=== PATIENT | male | born 1945 | race African-American/Black ===

== ENCOUNTER 2017-12-21 11:30 | Inpatient (IN) | payer MEDICARE, OTHER ==
[~2017-12-21] VITALS: Ht 172.7 cm; Wt 53.7 kg
[2017-12-21] VITALS (8 sets, daily range): BP systolic 158–194; BP diastolic 91–108; PULSE 64–82; RESP 15–18; TEMP 97.3–98; O2SAT 97–100
[2017-12-21] MEDS ORDERED: LACTULOSE SYRUP 20 GM/30 ML CUP PO PRN (12:00)
[2017-12-21] MEDS ORDERED: SENNOSIDES 8.6 MG TAB PO PRN (12:00)
[2017-12-21] MEDS ORDERED: CHLORHEXIDINE GLUCONATE 2 % 1 PACK (2 CLOTHS) TOP PRN (12:00)
[2017-12-21] MEDS ORDERED: BISACODYL 10 MG SUPP RECTAL PRN (12:00)
[2017-12-21] MEDS ORDERED: SODIUM CHLORIDE 0.9% 20 ML VIAL IV ONE (12:00)
[2017-12-21] MEDS ORDERED: ROCURONIUM INJ 50 MG/5 ML SYRINGE IV PUSH ONE (12:00)
[2017-12-21] MEDS ORDERED: hydrALAZINE HCL 20 MG/ML VIAL IV ONE (12:00)
[2017-12-21] MEDS ORDERED: ESMOLOL HCL 100 MG/10 ML VIAL IV ONE (12:00)
[2017-12-21] MEDS ORDERED: PHENYLEPH/NS 1000 MCG/10 ML SYR IV ONE (12:00)
[2017-12-21] MEDS ORDERED: ePHEDrine/NS 25 MG/5 ML SYRINGE IV ONE (12:00)
[2017-12-21] MEDS ORDERED: MISCELLANEOUS NURSING INFORMATION XX SCH (12:00)
[2017-12-21] MEDS ORDERED: ONDANSETRON HCL 4 MG/2 ML VIAL IV PUSH PRN (12:00)
[2017-12-21] MEDS ORDERED: METOPROLOL TARTRATE 5 MG/5 ML VIAL IV ONE (12:00)
[2017-12-21] MEDS ORDERED: DEXAMETHASONE SOD PHOS 4 MG/ML VIAL IV ONE (12:00)
[2017-12-21] MEDS ORDERED: MAGNESIUM HYDROXIDE SUSP 30 ML CUP PO PRN (12:00)
[2017-12-21] MEDS ORDERED: RESP: ALBUTEROL 2.5 MG/IPRATROPIUM 0.5 MG NEB (PRN) INH (12:00)
[2017-12-21] MEDS ORDERED: ONDANSETRON HCL 4 MG/2 ML VIAL IV ONE (12:00)
[2017-12-21] MEDS ORDERED: LIDOCAINE HCL 1% PF 5 ML SYRINGE OTHER ONE (12:00)
[2017-12-21] MEDS ORDERED: PROPOFOL 200 MG/20 ML AMP IV ONE (12:00)
--- NOTE | 2017-12-21 12:09 | PD ---
HPI Chief Complaint: transfer from [place]/intracranial hemorrhage Time Seen by Provider: 11:53 Travel History International Travel<30 days: No Contact w/Intl Traveler<30days: No History of Present Illness HPI 71-year-old male presents to the emergency department sent from [facility] for intracranial hemorrhage. Patient was accepted by basket patcher, Dr. Coronado. I spoke to Dr. Prajapati he was already spoke to the neurologist. The patient does not contribute to history and physical and is confused. According to notes from previous hospital, the patient has history of alcohol abuse. No exacerbating or relieving factors. Severity: critical. [facility] Social History Alcohol Use: Yes Tobacco Use: No (unknown) Substance Use: No (unknown) Review of Systems Except as stated in HPI: all other systems reviewed are Neg Physical Exam Narrative GENERAL: Well-nourished, well-developed male patient, afebrile. SKIN: Focused skin assessment warm/dry. HEAD: Normocephalic. Atraumatic EYES: No scleral icterus. No injection or drainage. NECK: Supple, trachea midline. No JVD or lymphadenopathy. CARDIOVASCULAR: Regular rate and rhythm without murmurs, gallops, or rubs. RESPIRATORY: Breath sounds equal bilaterally. No accessory muscle use. Lung sounds diminished GASTROINTESTINAL: Abdomen soft, non-tender, nondistended. MUSCULOSKELETAL: No cyanosis, or edema. BACK: Nontender without obvious deformity. No CVA tenderness. NEUROLOGICAL: Awake and alert. Patient neglects right side of body. He is confused and does not answer any questions. He will squeeze my left hand, but does not follow any other commands. Data Data Last Documented VS Vital Signs Date Time Temp Pulse Resp B/P (MAP) Pulse Ox O2 Delivery O2 Flow Rate FiO2 12/21/17 11:59 97.3 69 16 158/91 (113) 97 Room Air Orders Orders Admit Order (Ed Use Only) (12/21/17 12:06) MDM Medical Decision Making Medical Screen Exam Complete: Yes Emergency Medical Condition: Yes Medical Record Reviewed: Yes Differential Diagnosis Intracranial hemorrhage versus CVA versus TIA Narrative Course 8-year-old male was sent from [facility] for intracranial hemorrhage. The patient was accepted by Dr. Jasso who is at his bedside. Dr. Mae is already consulted and is seeing the patient emergency department. Patient was admitted to ICU to Dr. Jasso. Diagnosis Primary Impression: Intracranial hemorrhage Admitting Information Admitting Physician Requests: Admit Carol Toussaint Dec 21, 2017 12:09
--- NOTE | 2017-12-21 12:14 | PD.CONS ---
(Lewis Mae MD) HPI Consult Requested By Primary Care Physician Unknown History of Present Illness This is a 71-year-old brought to the [facility] emergency department with altered mental status and confusion. He has a chronic expressive aphasia and right sided deficit from a previous cerebrovascular accident. His care is complicated by long-term alcohol abuse. CT scan of the head showed a large bilateral subdural fluid collections which are typical of chronic hematoma. There is considerable compression of the brain. Neurosurgery consultation was requested (Lewis Mae MD) Service NRS Consult Requested By Dr. Prajapati Reason for Consult subdural hematoma History of Present Illness Mr. East is a 71 year old male who presented to [place] as a transfer from [facility] for evaluation of subdural hematoma. History cannot be obtained from the patient and no family at bedside thus history obtained from the patient's chart. Mr. Oquendo has a history of chronic aphasia and right side weakness from a prior stroke. He also has a history of chronic etoh abuse. He presented to [facility] ED with confusion and AMS. A CT Brain had shown large bilateral subdural fluid collections with mass effect of the brain. A neurosurgical evaluation was requested for surgical decompression. 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 daily, lactulose 30 cc p.o. twice daily, Keppra 500 mg twice daily, rifaximin 550 mg p.o. twice daily, thiamine 100 mg p.o. daily, aspirin 81 mg p.o. daily, atorvastatin 40 mg p.o. at bedtime, Lopressor 12.5 mg p.o. twice daily Protonix 40 mg p.o. daily Active Ordered Medications Current Medications Medications (Trade) Dose Ordered Sig/Ole Route PRN Reason Start Time Stop Time Status Last Admin Dose Admin Sodium Chloride 1,000 ml @ 100 mls/hr Q10H IV 12/21/17 11:54 12/21/17 12:40 Famotidine (Pepcid Inj) 20 mg Q12HR IV PUSH 12/21/17 12:00 12/21/17 12:40 Ondansetron HCl (Zofran Inj) 4 mg Q6H PRN IV PUSH NAUSEA OR VOMITING 12/21/17 12:00 Albuterol/ Ipratropium (Duoneb Neb) 1 ampule Q4HR NEB PRN INH WHEEZING 12/21/17 12:00 Miscellaneous Information 1 Q361D XX 12/21/17 12:00 Chlorhexidine Gluconate (Chlorhexidine 2% Cloth) 3 pack Taper DAILY@04 TOP 12/22/17 04:00 12/18/18 03:59 Chlorhexidine Gluconate (Chlorhexidine 2% Cloth) 3 pack UNSCH PRN TOP HYGIENIC CARE 12/21/17 12:00 Senna/Docusate Sodium (Rossana-Colace) 1 tab BID PO 12/21/17 21:00 Magnesium Hydroxide (Milk Of Magnesia Liq) 30 ml Q12H PRN PO Mild constipation 12/21/17 12:00 Sennosides (Senokot) 17.2 mg Q12H PRN PO Moderate constipation 12/21/17 12:00 Bisacodyl (Dulcolax Supp) 10 mg DAILY PRN RECTAL SEVERE CONSITIPATION 12/21/17 12:00 Lactulose (Lactulose Liq) 30 ml DAILY PRN PO SEVERE CONSITIPATION 12/21/17 12:00 Lactulose (Lactulose Liq) 30 ml DAILY PO 12/22/17 09:00 UNV Levetriacetam 500 mg/Sodium Chloride 105 ml @ 420 mls/hr Q12HR IV 12/21/17 21:00 UNV Rifaximin (Xifaxan) 550 mg BID PO 12/21/17 21:00 UNV Atorvastatin Calcium (Lipitor) 40 mg HS PO 12/21/17 21:00 UNV Metoprolol Tartrate (Lopressor) 25 mg Q12HR PO 12/21/17 21:00 UNV Family History cannot be obtained Social History history of chronic etoh abuse (Amparo Longoria) Physical Exam Vital Signs Vital Signs Date Time Temp Pulse Resp B/P (MAP) Pulse Ox O2 Delivery O2 Flow Rate FiO2 12/21/17 11:59 97.3 69 16 158/91 (113) 97 Room Air Physical Exam General: Intubated and sedated. GCS 6. HEENT: Traumatic with swelling and contusion. Normocephalic. Nonicteric sclera. No nasal or otic drainage. Neuro: Awake, Aphasic, he only followed maybe 1-2 simple command. Cranial nerve examination: pupils equal, round, and reactive to light. Gross extra- ocular movements are intact when tracking. Facial motor appears symmetrical. Exam limited due to clinical condition. Neck is soft and supple. Cervical spine has a full range of motion in anterior flexion, extension, lateral bending, and rotation without pain. There is no tenderness to palpation to the spinous processes or paraspinal muscles. Musculoskeletal: Exam limited due to clinical condition. Moves left arm 4/5 to command, right arm 1-2/5, withdraws lower extremities to pain, right greater than left. Sensory examination: responds to pain to extremities, left greater than right. Deep tendon reflexes are 1+ in the biceps, triceps, and brachioradialis, bilaterally, in the upper extremities. In the lower extremities, the patellar and Achilles are 1+, bilaterally. There is a bilateral plantar flexion response. Hoffmanns sign is negative. There is no clonus. Cerebellar examination is limited due to clinical condition but no obvious deficits noted. Heart: regular rate, rhythm Resp: clear, no wheezes, nonlabored breathing Skin: warm, dry, no cyanosis or erythema (Lewis Mae MD) Physical Exam General: In bed, in no acute distress. HEENT: Normocephalic. Nonicteric sclera. No nasal or otic drainage. Neuro: Awake, Aphasic, he only followed maybe 1-2 simple command. Cranial nerve examination: pupils equal, round, and reactive to light. Gross extra- ocular movements are intact when tracking. Facial motor appears symmetrical. Exam limited due to clinical condition. Neck is soft and supple. Cervical spine has a full range of motion in anterior flexion, extension, lateral bending, and rotation without pain. There is no tenderness to palpation to the spinous processes or paraspinal muscles. Musculoskeletal: Exam limited due to clinical condition. Moves left arm 4/5 to command, right arm 1-2/5, withdraws lower extremities to pain, right greater than left. Sensory examination: responds to pain to extremities, left greater than right. Deep tendon reflexes are 1+ in the biceps, triceps, and brachioradialis, bilaterally, in the upper extremities. In the lower extremities, the patellar and Achilles are 1+, bilaterally. There is a bilateral plantar flexion response. Hoffmanns sign is negative. There is no clonus. Cerebellar examination is limited due to clinical condition but no obvious deficits noted. Heart: regular rate, rhythm Resp: clear, no wheezes, nonlabored breathing Skin: warm, dry, no cyanosis or erythema (Amparo Longoria) Attending Statement The [patient is critically ill with a life-threatening and deteriorating neurologic condition. He requires emergency decompression of both hemispheres and he is neurologically unstable 1. Acute on chronic subdural fluid collections, bilateral 2. Residual expressive aphasia and right-sided weakness from previous CVA. 3. Chronic alcoholism. 4. COPD, not exacerbated. 5. Previous CVA. 6. Seizures, chronic 7. Hypertension I reviewed his radiological studies from [place] and from here Last [address] 12/21/17 0000 Signed Impressions: Service Date/Time: Thursday, December 21, 2017 12:48 - CONCLUSION: 1. Bilateral subdural hematomas, left greater than right containing chronic and acute blood products. 2. Mild mass effect and midline shift to the right by 4 mm. Jose Gonzalez MD Given his neuroliogical deterioration i recommend urgent bilateral decompressive bur hole surgery. Neuro checks in a serial fashion. A follow-up CT of the head will be obtained in 24 hours. Pulmonary.. aggressive pulmonary toilette, nasotracheal suction, and breathing treatments with nebulizers. Nutrition. NPO Renal. monitor closely urine output, BUN and creatinine Endocrine. Monitor serial Acu checks and SSI as needed in detail ID monitor for signs of infection Protonix for stress ulcer prophylaxis Santy hose and SCD's for DVT prophylaxis Caprini VTE Risk Assessment: Mod/High Risk (score >= 2) VTE Pharm Contraindication: High risk for bleeding Caprini Risk Assessment Model Point Value = 1 Point Value = 2 Point Value = 3 Point Value = 5 Age 41-60 Minor surgery BMI > 25 kg/m2 Swollen legs Varicose veins or History of unexplained or recurrent spontaneous Oral contraceptives or hormone replacement Sepsis (< 1 month) Serious lung disease, including pneumonia (< 1 month) Abnormal pulmonary function Acute myocardial infarction Congestive heart failure (< 1 month) History of inflammatory bowel disease Medical patient at bed rest Age 61-74 Arthroscopic surgery Major open surgery (> 45 min) Laparoscopic surgery (> 45 min) Malignancy Confined to bed (> 72 hours) Immobilizing plaster cast Central venous access Age >= 75 History of VTE Family history of VTE Factor V Leiden Prothrombin [id number] Lupus anticoagulant Anticardiolipin antibodies Elevated serum homocysteine Heparin-induced thrombocytopenia Other congenital or acquired thrombophilia Stroke (< 1 month) Elective arthroplasty Hip, pelvis, or leg fracture Acute spinal cord injury (< 1 month) Prophylaxis Regimen Total Risk Factor Score Risk Level Prophylaxis Regimen 0-1 Low Early ambulation 2 Moderate Order ONE of the following: *Sequential Compression Device (SCD) *Heparin 5000 units SQ BID 3-4 Higher Order ONE of the following medications: *Heparin 5000 units SQ TID *Enoxaparin/Lovenox 40 mg SQ daily (WT < 150 kg, CrCl > 30 mL/min) *Enoxaparin/Lovenox 30 mg SQ daily (WT < 150 kg, CrCl > 10-29 mL/min) *Enoxaparin/Lovenox 30 mg SQ BID (WT < 150 kg, CrCl > 30 mL/min) AND/OR *Sequential Compression Device (SCD) 5 or more Highest Order ONE of the following medications: *Heparin 5000 units SQ TID (Preferred with Epidurals) *Enoxaparin/Lovenox 40 mg SQ daily (WT < 150 kg, CrCl > 30 mL/min) *Enoxaparin/Lovenox 30 mg SQ daily (WT < 150 kg, CrCl > 10-29 mL/min) *Enoxaparin/Lovenox 30 mg SQ BID (WT < 150 kg, CrCl > 30 mL/min) AND *Sequential Compression Device (SCD) Discussed with critical care academic registrar (Lewis Mae MD) Lewis Mae MD Dec 21, 2017 12:13 Amparo Longoria Dec 21, 2017 12:49
--- NOTE | 2017-12-21 12:26 | HHI.HP ---
HPI Service Critical Care Medicine Primary Care Physician Unknown Admission Diagnosis intracranial hemorrhage Diagnosis: Chief Complaint: Confusion. Travel History International Travel<30 Days: No Contact w/Intl Traveler <30 Da: No Traveled to Known Affected Are: No History of Present Illness This 71-year-old gentleman presents to the [facility] emergency department with altered mental status and confusion. He has a chronic expressive aphasia and right sided deficit from a previous cerebrovascular accident. His care is complicated by long-term alcohol abuse. CAT scan of the head obtained reveals large bilateral subdural fluid collections which are typical of chronic hematoma. There is considerable compression of the brain and the gentleman is quite confused. I have shown the outside hospital head CT scans to the neurosurgeon on-call during the patient's transportation to our facility and upon his examination the patient requires emergency decompression of both hemispheres. Ammonia 32. INR 1.1 Past Family Social History Allergies: Coded Allergies: No Known Allergies (Unverified , 12/21/17) Past Medical History 1. Asthma 2. COPD 3. Previous CVA 4. Hypertension 5. Liver disease 6. Seizures Medications: Folic acid 1 mg p.o. daily, lactulose 30 cc p.o. twice daily, Keppra 500 mg twice daily, rifaximin 550 mg p.o. twice daily, thiamine 100 mg p.o. daily, aspirin 81 mg p.o. daily, atorvastatin 40 mg p.o. at bedtime, Lopressor 12.5 mg p.o. twice daily Protonix 40 mg p.o. daily Physical Exam Physical Exam Physical exam: Pulse 82 and regular, blood pressure 165/105, respiratory rate is 18 and nonlabored, temperature is 98.2 Head: Atraumatic, normal Neck: Supple, airway widely patent. Lungs: Clear bilaterally without wheezes or crackles, comfortable respiratory pattern heart: Normal S1-S2, regular rate and rhythm, no murmur or rub, no jugular venous distention Abdomen: Soft, no guarding, no tenderness bowel sounds are active Extremities: Warm, well-perfused, skin dry and scaly Neurologic exam: He is disoriented and confused. Somewhat difficult to evaluate completely because of his residual expressive aphasia from a prior stroke. Right upper and lower extremity power function are 2/5 left leg and arm power function are 5/5 patient tracks with his eyes, attempts to answer questions, calm appearing, bilateral cataracts. Laboratory Pertinent laboratory includes; hemoglobin 11.5, white blood cell count 6400, platelet count 97,000 Coagulation profile: INR 1.1APTT 24.3 Electrolytes: Sodium 139, potassium 3.2, creatinine is 1.15, BUN 6.0 Liver function tests: Total bilirubin 1.5, AST 51, ALT 16, alkaline phosphatase 87 Nutrition: Total protein 8.1, albumin is 4.4 Toxicology: Alcohol level 0.[address] head: Bilateral subdural fluid collections, large. Caprini VTE Risk Assessment Caprini VTE Risk Assessment: Mod/High Risk (score >= 2) VTE Pharm Contraindication: High risk for bleeding Caprini Risk Assessment Model Point Value = 1 Point Value = 2 Point Value = 3 Point Value = 5 Age 41-60 Minor surgery BMI > 25 kg/m2 Swollen legs Varicose veins or History of unexplained or recurrent spontaneous Oral contraceptives or hormone replacement Sepsis (< 1 month) Serious lung disease, including pneumonia (< 1 month) Abnormal pulmonary function Acute myocardial infarction Congestive heart failure (< 1 month) History of inflammatory bowel disease Medical patient at bed rest Age 61-74 Arthroscopic surgery Major open surgery (> 45 min) Laparoscopic surgery (> 45 min) Malignancy Confined to bed (> 72 hours) Immobilizing plaster cast Central venous access Age >= 75 History of VTE Family history of VTE Factor V Leiden Prothrombin [id number] Lupus anticoagulant Anticardiolipin antibodies Elevated serum homocysteine Heparin-induced thrombocytopenia Other congenital or acquired thrombophilia Stroke (< 1 month) Elective arthroplasty Hip, pelvis, or leg fracture Acute spinal cord injury (< 1 month) Prophylaxis Regimen Total Risk Factor Score Risk Level Prophylaxis Regimen 0-1 Low Early ambulation 2 Moderate Order ONE of the following: *Sequential Compression Device (SCD) *Heparin 5000 units SQ BID 3-4 Higher Order ONE of the following medications: *Heparin 5000 units SQ TID *Enoxaparin/Lovenox 40 mg SQ daily (WT < 150 kg, CrCl > 30 mL/min) *Enoxaparin/Lovenox 30 mg SQ daily (WT < 150 kg, CrCl > 10-29 mL/min) *Enoxaparin/Lovenox 30 mg SQ BID (WT < 150 kg, CrCl > 30 mL/min) AND/OR *Sequential Compression Device (SCD) 5 or more Highest Order ONE of the following medications: *Heparin 5000 units SQ TID (Preferred with Epidurals) *Enoxaparin/Lovenox 40 mg SQ daily (WT < 150 kg, CrCl > 30 mL/min) *Enoxaparin/Lovenox 30 mg SQ daily (WT < 150 kg, CrCl > 10-29 mL/min) *Enoxaparin/Lovenox 30 mg SQ BID (WT < 150 kg, CrCl > 30 mL/min) AND *Sequential Compression Device (SCD) Assessment and Plan Assessment and Plan Assessment: 1. Acute on chronic subdural fluid collections, bilateral 2. Residual expressive aphasia and right-sided weakness from previous CVA. 3. Chronic alcoholism. 4. COPD, not exacerbated. 5. Previous CVA. 6. Seizures, chronic 7. Hypertension Plan: Neuro: Immediate bilateral decompressive bur hole surgery. N.p.o. status Head of bed elevated 45. Cardiovascular: Continue outpatient beta-jana therapy Hold EMY inhibitor today Maintenance IV fluid hydration with isotonic crystalloid Respiratory: Bronchodilators every 6 hours as needed wheezing Incentive spirometry GI: n.p.o. : Postoperative Bean insertion for strict MICHAEL. Endocrine: Sliding scale insulin for euglycemia Hematology: CBC for fever Postoperative hemoglobin determination ID: Culture for fevers No obvious infection at this time Prophylaxis: Pepcid for GI ulcer protection SCD4 DVT prophylaxis Overall impression: This gentleman has accumulated life-threatening bilateral subdural fluid collections. This likely started as subdural hemorrhage and has progressed to the chronic status. The gentleman is critically ill with a life- threatening and deteriorating neurologic condition. He requires emergency decompression of both hemispheres and will be neurologically unstable for the next several days. Critical care time 42 minutes aside from invasive procedures. The case has been discussed with Dr. Mae at the bedside. Bertin Jasso MD Dec 21, 2017 12:26
[2017-12-21] MEDS: SODIUM CHLOR 0.9% 1000 ML INJ 1,000 ML IV SCH ×2 (12:40→23:24)
[2017-12-21] MEDS: FAMOTIDINE 20 MG/2 ML VIAL IV PUSH SCH ×2 (12:40→21:00)
[2017-12-21] MEDS ORDERED: ceFAZolin INJ 1,000 MG VIAL ONE (12:52)
[2017-12-21] MEDS ORDERED: GENTAMICIN SULFATE 80 MG/2 ML VIAL ONE (12:52)
[2017-12-21] MEDS ORDERED: GELFOAM SIZE 100 ONE (12:52)
[2017-12-21] MEDS ORDERED: THROMBIN (TOPICAL) 5,000 UNIT VIAL ONE (12:52)
[2017-12-21] MEDS ORDERED: SODIUM CHLOR 0.9% 250 ML INJ 250 ML ONE (12:52)
[2017-12-21] MEDS ORDERED: VANCOMYCIN HCL 1000 MG VIAL ONE (12:54)
--- NOTE | 2017-12-21 13:12 | RADRPT ---
EXAM DATE/TIME: 12/21/2017 12:48 [facility] COMPARISON: No previous studies available for comparison. INDICATIONS : Follow up dural hematoma, scanned at [place]. RADIATION DOSE: 56.35 CTDIvol (mGy) MEDICAL HISTORY : None SURGICAL HISTORY : None. ENCOUNTER: Initial ACUITY: 1 day PAIN SCALE: Non-responsive LOCATION: cranial TECHNIQUE: Multiple contiguous axial images were obtained of the head. Using automated exposure control and adj ustment of the mA and/or kV according to patient size, radiation dose was kept as low as reasonably a chievable to obtain optimal diagnostic quality images. DICOM format image data is available electro nically for review and comparison. FINDINGS: CEREBRUM: There are bilateral subdural hematomas with chronic and acute blood products seen bilaterally. There is approximately 2.3 cm of separation along the left subdural hematoma near the vertex. There is appr oximately 1.2 cm separation of the right subdural hematoma along the right cerebral vertex. There is some mass effect and midline shift to the right by 4 mm. The ventricles are normal in size. No acute intraparenchymal hemorrhage is seen. POSTERIOR FOSSA: The cerebellum and brainstem are intact. The 4th ventricle is midline. The cerebellopontine angle i s unremarkable. EXTRACRANIAL: The visualized portion of the orbits is intact. SKULL: The calvaria is intact. No evidence of skull fracture. CONCLUSION: 1. Bilateral subdural hematomas, left greater than right containing chronic and acute blood products. 2. Mild mass effect and midline shift to the right by 4 mm. Jose Gonzalez MD on December 21, 2017 at 13:08 Board Certified Radiologist. This report was verified electronically.
[2017-12-21] MEDS ORDERED: LIDOCAINE 1%/EPINEPHrine 1:100,000 SOLN 30 ML VIAL ONE (15:19)
[2017-12-21] MEDS ORDERED: MICROFIBRILLAR COLLAGEN HEMOSTAT 70 X 35 MM BANDAGE ONE (15:19)
[2017-12-21] MEDS ORDERED: DEXAMETHASONE SOD PHOS 20 MG/5 ML VIAL ONE (15:19)
[2017-12-21] MEDS ORDERED: ceFAZolin 2 GM PREMIX 50 ML ONE (20:30)
[2017-12-21] MEDS ORDERED: levETIRAcetam 500 MG/5 ML VIAL IV ONE (20:39)
[2017-12-21] MEDS: DOCUSATE SODIUM 50 MG/SENNA 8.6 MG TAB PO SCH (21:00)
[2017-12-21] MEDS: METOPROLOL TARTRATE 25 MG TAB PO SCH (21:00)
[2017-12-21] MEDS: RIFAXIMIN 550 MG TAB PO SCH (21:00)
[2017-12-21] MEDS: levETIRAcetam INJ 500 MG in SODIUM CHLORIDE 0.9% INJ 100 ML IV SCH (21:00)
[2017-12-21] MEDS: ATORVASTATIN 40 MG TAB PO SCH (21:00)
[2017-12-21] MEDS ORDERED: SUGAMMADEX SODIUM 200 MG/2 ML VIAL IV PUSH ONE (21:48)
[2017-12-21] MEDS ORDERED: DO NOT ADM ANY ANTICOAGULANT DRUGS PRN (22:00)
[2017-12-21] MEDS ORDERED: *LABETALOL HCL 100 MG/20 ML VIAL PERIprocedural Use ONLY ONE (22:12)
[2017-12-22] VITALS (15 sets, daily range): BP systolic 127–169; BP diastolic 75–99; PULSE 64–100; RESP 12–19; TEMP 97.8–98.6; O2SAT 96–100
[2017-12-22] MEDS: CHLORHEXIDINE GLUCONATE 2 % 1 PACK (2 CLOTHS) TOP SCH (03:17)
[2017-12-22] MEDS: niCARdipine 25 MG/NS 250 ML Vial2Bag or IV room IV PRN ×2 (04:15)
[2017-12-22] MEDS: levETIRAcetam INJ 500 MG in SODIUM CHLORIDE 0.9% INJ 100 ML IV SCH ×2 (08:49→19:56)
[2017-12-22] MEDS: FAMOTIDINE 20 MG/2 ML VIAL IV PUSH SCH ×2 (08:49→19:56)
[2017-12-22] MEDS: LACTULOSE SYRUP 20 GM/30 ML CUP PO SCH (08:49)
[2017-12-22 08:50] LABS: AUTOMATED NEUTROPHIL # 3.7 TH/MM3 (1.8-7.7); BASOPHIL % 0.2 % (0.0-2.0); HEMATOCRIT 33.3 % (39.0-51.0); HEMOGLOBIN 11.3 GM/DL (13.0-17.0); LYMPH % 30.5 % (9.0-44.0); LYMPHOCYTE # 1.8 TH/MM3 (1.0-4.8); MEAN CELL VOLUME 90.3 FL (80.0-100.0); MEAN CORPUSCULAR HEMOGLOBIN 30.6 PG (27.0-34.0); MEAN CORPUSCULAR HGB CONC 33.9 % (32.0-36.0); MEAN PLATELET VOLUME 8.6 FL (7.0-11.0); MONO % 5.4 % (0.0-8.0); MONOCYTE # 0.3 TH/MM3 (0-0.9); NEUT % 63.9 % (16.0-70.0); PLATELET COUNT 103 TH/MM3 (150-450); RED BLOOD COUNT 3.69 MIL/MM3 (4.50-5.90); RED CELL DISTRIBUTION WIDTH 15.3 % (11.6-17.2); WHITE BLOOD COUNT 5.8 TH/MM3 (4.0-11.0)
[2017-12-22] MEDS: DOCUSATE SODIUM 50 MG/SENNA 8.6 MG TAB PO SCH ×2 (08:50→19:55)
[2017-12-22] MEDS: SODIUM CHLOR 0.9% 1000 ML INJ 1,000 ML IV SCH ×2 (08:50→20:00)
[2017-12-22] MEDS: RIFAXIMIN 550 MG TAB PO SCH ×2 (08:50→19:55)
[2017-12-22] MEDS: METOPROLOL TARTRATE 25 MG TAB PO SCH ×2 (08:50→19:55)
[2017-12-22 09:12] LABS: BICARBONATE 24.8 MEQ/L (21.0-32.0); CALCIUM 8.2 MG/DL (8.5-10.1); CREATININE 0.89 MG/DL (0.60-1.30)
--- NOTE | 2017-12-22 15:16 | PD.OP ---
Operative Report Date of Surgery: Dec 21, 2017 Preoperative Diagnosis: Bilateral subacute subdural hematomas Postoperative Diagnosis: Bilateral subacute subdural hematomas Procedure: Right frontal nichol border hole with evacuation or subdural hematoma Left frontal nichol border hole with evacuation or subdural hematoma Anesthesia: General Surgeon: Lewis Mae Flight Simulator Teacher(s): HELEN Operation and Findings: INDICATIONS FOR THE PROCEDURE Mr East is a 71- year old male who presented with altered mental status and was found to have bilateral subdural hematomas with severe mass effect. A surgical decompression was indicated and medical necessary as his neurological consition was getting progressively worse DETAILS OF THE SURGICAL PROCEDURE Following the induction of general anesthesia, endotracheal intubation was performed. A Bean catheter, bilateral GABY hose and sequential compression devices were placed and kept throughout the procedure. The patient was positioned supine on a 3080 table with the head in a neutral position on a gel doughnut. All pressure points were padded with eggcrate mattress. The frontal regions were prepped and draped in the usual sterile fashion. A small incision was outlined on the frontal region bilaterally, approximately 3 cm lateral to the midline behind the hairline. The incisions were infiltrated with 1% lidocaine with epinephrine 1:100,000 dilution. A small skin incision was made bilaterally with a #10 blade down to the level of the periosteum. Small bleeders were coagulated with a bipolar. A Weitlaner self-retaining retractor was placed in that area. The Midas Skinny was brought to the field and used to make the nichol holes. The dura was coagulated with the bipolar in a cruciform fashion and opened with a 15 blade. The subdural space was entered bilaterally. large bilateral subdural hematomas were then evacuated. Specimen were sent to the lab for hystopathological examination. The subdural space was irrigated with saline bilaterally. A 7 mm Jarrett-Metz drain was left in the subdural space bilaterally and externalized through separate stab incisions. The incisions were thoroughly irrigated. The closure was performed in layers. 3-0 Vicryl with interrupted sutures were used to close the galea. [place] were applied to the skin. A sterile dressing was placed bilaterally. At the end of the procedure, the sponge, needle and instrument counts were all correct. Estimated blood loss was minimal. No blood transfusion was given. No intraoperative complications occurred. The patient was then extubated and transferred to the recovery room in a stable condition. Lewis Mae MD Dec 22, 2017 15:16
[2017-12-22] MEDS ORDERED: POTASSIUM CHLORIDE 25 MEQ EFFERVESCENT TAB PO PRN (16:00)
[2017-12-22] MEDS ORDERED: POTASSIUM PHOSPHATE MONOBASIC 500 MG TAB PO PRN (16:00)
[2017-12-22] MEDS ORDERED: POTASSIUM PHOSPHATE INJ 30 MMOL in SODIUM CHLOR 0.9% 250 ML INJ 250 ML IV PRN (16:00)
[2017-12-22] MEDS ORDERED: MAGNESIUM OXIDE 400 MG TAB PO PRN (16:00)
[2017-12-22] MEDS: LORazepam 2 MG/ML VIAL IV PUSH PRN ×6 (16:00→23:08)
[2017-12-22] MEDS ORDERED: FLUMAZENIL 0.5 MG/5 ML VIAL IV PUSH PRN (16:00)
[2017-12-22] MEDS ORDERED: MAGNESIUM SULFATE INJ 2 GM in SODIUM CHLORIDE 0.9% INJ 96 ML IV PRN (16:00)
[2017-12-22] MEDS ORDERED: POTASSIUM PHOSPHATE MONOBASIC 500 MG TAB PO/TUBE PRN (16:00)
[2017-12-22] MEDS ORDERED: LORazepam 1 MG TAB PO PRN (16:00)
[2017-12-22] MEDS ORDERED: POTASSIUM CHLOR 20 MEQ PREMIX 100 ML IV PRN (16:00)
[2017-12-22] MEDS ORDERED: MAGNESIUM SULFATE INJ 4 GM in SODIUM CHLORIDE 0.9% INJ 92 ML IV PRN (16:00)
[2017-12-22] MEDS ORDERED: POTASSIUM CHLOR 40 MEQ PREMIX 100 ML IV PRN ×2 (16:00)
[2017-12-22] MEDS ORDERED: SODIUM PHOSPHATE INJ 30 MMOL in SODIUM CHLOR 0.9% 250 ML INJ 240 ML IV PRN (16:00)
--- NOTE | 2017-12-22 16:05 | HHI.CCPN ---
Subjective Remarks/Hospital Course This 71-year-old gentleman presents to the [facility] emergency department with altered mental status and confusion. He has a chronic expressive aphasia and right sided deficit from a previous cerebrovascular accident. His care is complicated by long-term alcohol abuse. CAT scan of the head obtained reveals large bilateral subdural fluid collections which are typical of chronic hematoma. There is considerable compression of the brain and the gentleman is quite confused. I have shown the outside hospital head CT scans to the neurosurgeon on-call during the patient's transportation to our facility and upon his examination the patient requires emergency decompression of both hemispheres. Ammonia 32. INR 1.1 12/22: Alert, but confused. Chronic. Agitated, probable ETOH withdrawal. Will get swallow evaluation. Replace lytes. Start CIWA protocol. Objective Vital Signs Date Time Temp Pulse Resp B/P (MAP) Pulse Ox O2 Delivery O2 Flow Rate FiO2 12/22/17 14:00 90 12/22/17 12:00 98.6 12 127/77 (94) 100 12/22/17 10:23 21 12/21/17 23:00 Room Air 12/21/17 22:30 2.00 Intake and Output 12/22/17 12/22/17 12/23/17 08:00 16:00 00:00 Intake Total 52 ml 1000 ml Output Total 1040 ml Balance -988 ml 1000 ml Result Diagram: 12/22/17 0832 12/22/[address] head: Bilateral subdural fluid collections, large. Objective Remarks Physical exam: Pulse 88 and regular, blood pressure 175/88 respiratory rate is 13 and nonlabored, temperature is 98.8 Head: Atraumatic, normal Neck: Supple, airway widely patent. Lungs: Clear bilaterally without wheezes or crackles, comfortable respiratory pattern Heart: Normal S1-S2, regular rate and rhythm, no murmur or rub, no jugular venous distention Abdomen: Soft, no guarding, no tenderness bowel sounds are active Extremities: Warm, well-perfused, skin dry and scaly Neurologic exam: Confused but interactive and alert. Somewhat difficult to evaluate completely because of his residual expressive aphasia from a prior stroke. Right upper and lower extremity power function are 2/5. Left leg and arm power function are 5/5 patient tracks with his eyes, calm appearing. Agitated. A/P Assessment and Plan Assessment: 1. Acute on chronic subdural fluid collections, bilateral -> drained. 2. Residual expressive aphasia and right-sided weakness from previous CVA. 3. Chronic alcoholism. 4. COPD, not exacerbated. 5. Previous CVA. 6. Seizures, chronic 7. Hypertension Plan: Neuro: Immediate bilateral decompressive bur hole surgery. N.p.o. status -> swallow evaluation Head of bed elevated 45. Cardiovascular: Continue outpatient beta-jana therapy Hold EMY inhibitor today Maintenance IV fluid hydration with isotonic crystalloid Wean off cardene and convert to oral meds when swallow eval clears Respiratory: Bronchodilators every 6 hours as needed wheezing Incentive spirometry GI: n.p.o. : Postoperative Bean insertion for strict MICHAEL. Endocrine: Sliding scale insulin for euglycemia Hematology: CBC for fever Postoperative hemoglobin determination ID: Culture for fevers No obvious infection at this time Prophylaxis: Pepcid for GI ulcer protection SCD4 DVT prophylaxis PT/OT Overall impression: This gentleman has accumulated life-threatening bilateral subdural fluid collections, likely started as subdural hemorrhage and has progressed to the chronic status. The gentleman presented critically ill with a life-threatening and deteriorating neurologic condition. He required emergency decompression of both hemispheres but was easily extubated after surgery. Bertin Jasso MD Dec 22, 2017 16:05
--- NOTE | 2017-12-22 17:11 | HHI.NSPN ---
(Amparo Longoria) Note Status Status: Progress Note (Amparo Longoria) Interval History Interval History Mr. East is a 71 year old male who presented to [place] as a transfer from [facility] for evaluation of subdural hematoma. History cannot be obtained from the patient and no family at bedside thus history obtained from the patient's chart. Mr. Oquendo has a history of chronic aphasia and right side weakness from a prior stroke. He also has a history of chronic etoh abuse. He presented to [place] ED with confusion and AMS. A CT Brain had shown large bilateral subdural fluid collections with mass effect of the brain. A neurosurgical evaluation was requested for surgical decompression. 12/22: doing well, appears much more awake, talking but speech is confused, not really following commands, smiling and very pleasant. bilateral subdural drains in place (Amparo Longoria) Labs, Micro, & Vital Signs Results Date Time Temp Pulse Resp B/P (MAP) Pulse Ox O2 Delivery O2 Flow Rate FiO2 12/22/17 14:00 90 12/22/17 12:00 98.6 72 12 127/77 (94) 100 12/22/17 12:00 72 12/22/17 10:23 99 21 12/22/17 10:00 75 12/22/17 08:00 98.3 84 12 132/99 (110) 100 12/22/17 08:00 78 12/22/17 06:00 78 12/22/17 05:45 131/80 12/22/17 05:15 132/79 12/22/17 04:45 122/74 12/22/17 04:15 68 169/98 12/22/17 04:00 98.2 70 13 169/98 (121) 100 12/22/17 04:00 64 12/22/17 02:00 66 12/22/17 01:04 99 12/22/17 00:00 73 12/22/17 00:00 98.2 73 18 151/97 (115) 96 12/21/17 23:30 70 12/21/17 23:00 100 Room Air 3/21/18 22:30 100 Nasal Cannula 2.00 12/21/17 22:30 98.0 64 16 163/94 (117) 100 12/21/17 22:15 68 15 169/105 (126) 99 Nasal Cannula 2 12/21/17 22:00 75 15 178/96 (123) 99 Nasal Cannula 2 12/21/17 21:45 67 15 167/89 (115) 99 Nasal Cannula 2 12/21/17 21:32 97.0 73 15 170/95 (120) 88 Nasal Cannula 2 12/23/17 07:00 Intake Total 1000 ml Balance 1000 ml Constitutional Vital Signs Date Time Temp Pulse Resp B/P (MAP) Pulse Ox O2 Delivery O2 Flow Rate FiO2 12/22/17 14:00 90 12/22/17 12:00 98.6 72 12 127/77 (94) 100 12/22/17 12:00 72 12/22/17 10:23 99 21 12/22/17 10:00 75 12/22/17 08:00 98.3 84 12 132/99 (110) 100 12/22/17 08:00 78 12/22/17 06:00 78 12/22/17 05:45 131/80 12/22/17 05:15 132/79 12/22/17 04:45 122/74 12/22/17 04:15 68 169/98 12/22/17 04:00 98.2 70 13 169/98 (121) 100 12/22/17 04:00 64 12/22/17 02:00 66 12/22/17 01:04 99 12/22/17 00:00 73 12/22/17 00:00 98.2 73 18 151/97 (115) 96 12/21/17 23:30 70 12/21/17 23:00 100 Room Air 12/21/17 22:30 100 Nasal Cannula 2.00 12/21/17 22:30 98.0 64 16 163/94 (117) 100 12/21/17 22:15 68 15 169/105 (126) 99 Nasal Cannula 2 12/21/17 22:00 75 15 178/96 (123) 99 Nasal Cannula 2 12/21/17 21:45 67 15 167/89 (115) 99 Nasal Cannula 2 12/21/17 21:32 97.0 73 15 170/95 (120 88 Nasal Cannula 2 12/23/17 07:00 Intake Total 1000 ml Balance 1000 ml (Amparo Longoria) Review of Systems ROS Limitations: Speech Impaired, Poor Historian (Amparo Longoria) Physical Exam General: In bed, in no acute distress. Pleasant, smiling. HEENT: Normocephalic. Nonicteric sclera. No nasal or otic drainage. Bilateral subdural drains in place, with dark serosanguineous drainage Neuro: More Awake, Aphasic, he only followed maybe 1-2 simple command. Cranial nerve examination: pupils equal, round, and reactive to light. Gross extra- ocular movements are intact when tracking. Facial motor appears symmetrical. Exam limited due to clinical condition. Neck is soft and supple. Cervical spine has a full range of motion in anterior flexion, extension, lateral bending, and rotation without pain. There is no tenderness to palpation to the spinous processes or paraspinal muscles. Musculoskeletal: Exam limited due to clinical condition. Moves left arm 4/5 to command, right arm 3/5, withdraws lower extremities to pain, right greater than left. Sensory examination: responds to pain to extremities, left greater than right. Deep tendon reflexes are 1+ in the biceps, triceps, and brachioradialis, bilaterally, in the upper extremities. In the lower extremities, the patellar and Achilles are 1+, bilaterally. There is a bilateral plantar flexion response. Hoffmanns sign is negative. There is no clonus. Cerebellar examination is limited due to clinical condition but no obvious deficits noted. Heart: regular rate, rhythm Resp: clear, no wheezes, nonlabored breathing Skin: warm, dry, no cyanosis or erythema (Amparo Longoria) Medications Current Medications Current Medications Medications (Trade) Dose Ordered Sig/Ole Route PRN Reason Start Time Stop Time Status Last Admin Dose Admin Sodium Chloride 1,000 ml @ 100 mls/hr Q10H IV 12/21/17 11:54 12/22/17 08:50 Famotidine (Pepcid Inj) 20 mg Q12HR IV PUSH 12/21/17 12:00 12/22/17 08:49 Ondansetron HCl (Zofran Inj) 4 mg Q6H PRN IV PUSH NAUSEA OR VOMITING 12/21/17 12:00 Albuterol/ Ipratropium (Duoneb Neb) 1 ampule Q4HR NEB PRN INH WHEEZING 12/21/17 12:00 Miscellaneous Information 1 Q361D XX 12/21/17 12:00 12/21/17 12:00 Chlorhexidine Gluconate (Chlorhexidine 2% Cloth) 3 pack Taper DAILY@04 TOP 12/22/17 04:00 12/18/18 03:59 Chlorhexidine Gluconate (Chlorhexidine 2% Cloth) 3 pack UNSCH PRN TOP HYGIENIC CARE 12/21/17 12:00 Senna/Docusate Sodium (Rossana-Colace) 1 tab BID PO 12/21/17 21:00 Magnesium Hydroxide (Milk Of Magnesia Liq) 30 ml Q12H PRN PO Mild constipation 12/21/17 12:00 Sennosides (Senokot) 17.2 mg Q12H PRN PO Moderate constipation 12/21/17 12:00 Bisacodyl (Dulcolax Supp) 10 mg DAILY PRN RECTAL SEVERE CONSITIPATION 12/21/17 12:00 Lactulose (Lactulose Liq) 30 ml DAILY PRN PO SEVERE CONSITIPATION 12/21/17 12:00 Lactulose (Lactulose Liq) 30 ml DAILY PO 12/22/17 09:00 Levetriacetam 500 mg/Sodium Chloride 105 ml @ 420 mls/hr Q12HR IV 12/21/17 21:00 12/22/17 08:49 Rifaximin (Xifaxan) 550 mg BID PO 12/21/17 21:00 Atorvastatin Calcium (Lipitor) 40 mg HS PO 12/21/17 21:00 Metoprolol Tartrate (Lopressor) 25 mg Q12HR PO 12/21/17 21:00 Miscellaneous Information ALL NURSING DEPARTME... UNSCH PRN .XX SEE LABEL COMMENTS 12/21/17 22:00 12/22/17 21:59 Nicardipine HCl 25 mg/Sodium Chloride 250 ml @ 50 mls/hr TITRATE PRN IV Blood Pressure Management 12/22/17 04:00 12/22/17 04:15 Flumazenil (Romazicon Inj) 0.2 mg Q1M PRN IV PUSH SEE LABEL COMMENTS 12/22/17 16:00 Lorazepam (Ativan) 1 mg Q4H PRN PO CIWA 8 - 10 12/22/17 16:00 Lorazepam (Ativan Inj) 1 mg Q4H PRN IV PUSH CIWA 8 - 10 12/22/17 16:00 Lorazepam (Ativan) 2 mg Q2H PRN PO CIWA 11-14 12/22/17 16:00 Lorazepam (Ativan Inj) 2 mg Q2H PRN IV PUSH CIWA 11-14 12/22/17 16:00 Lorazepam (Ativan Inj) 2 mg Q1H PRN IV PUSH CIWA 15-20 12/22/17 16:00 Lorazepam (Ativan Inj) 2 mg Q15M PRN IV PUSH CIWA > 20 12/22/17 16:00 Potassium Chloride 100 ml @ 50 mls/hr Q2H PRN IV For Potassium 2.8 - 3.2 mEq/L 12/22/17 16:00 Potassium Chloride 100 ml @ 50 mls/hr Q2H PRN IV For Potassium 2.8 - 3.2 mEq/L 12/22/17 16:00 Potassium Bicarb/ Potassium Chloride (K-Lyte Cl Eff) 50 meq UNSCH PRN PO For Potassium 3.3 - 3.5 mEq/L 12/22/17 16:00 12/22/17 16:36 Potassium Chloride 100 ml @ 25 mls/hr UNSCH PRN IV For Potassium 3.3 - 3.5 mEq/L 12/22/17 16:00 Potassium Chloride 100 ml @ 50 mls/hr Q2H PRN IV For Potassium 3.3 - 3.5 mEq/L 12/22/17 16:00 Magnesium Sulfate 4 gm/Sodium Chloride 100 ml @ 50 mls/hr UNSCH PRN IV For Magnesium 0.9 - 1.1 mg/dL 12/22/17 16:00 Magnesium Oxide (Mag-Ox) 800 mg UNSCH PRN PO For Magnesium 1.2 - 1.6 mg/dL 12/22/17 16:00 Magnesium Sulfate 2 gm/Sodium Chloride 100 ml @ 50 mls/hr UNSCH PRN IV For Magnesium 1.2 - 1.6 mg/dL 12/22/17 16:00 Potassium Phosphate (K-Phos) 2,000 mg Q4H PRN PO For Phosphorus < 2.5 mg/dL 12/22/17 16:00 Sodium Phosphate 30 mmol/Sodium Chloride 250 ml @ 42 mls/hr UNSCH PRN IV For Phosphorus < 2.5 mg/dL 12/22/17 16:00 Potassium Phosphate (K-Phos) 2,000 mg UNSCH PRN PO/TUBE SEE LABEL COMMENTS 12/22/17 16:00 Potassium Phosphate 30 mmol/ Sodium Chloride 260 ml @ 42 mls/hr UNSCH PRN IV SEE LABEL COMMENTS 12/22/17 16:00 (Amparo Longoria) Medical Decision Making MDM Remarks 71 y/o male s/p bilateral frontal nichol hole for evacuation of subdural hygroma , doing, mental status improving chronic aphasia with chronic right hemiparesis from old CVA (Amparo Longoria) Plan Plan Remarks cont draining, cont neuro checks ok to start PT (Amparo Longoria) Attending Statement S/p evacuation of subdural hematomas The exam, history, and the medical decision-making described in the above note were completed with the assistance of the mid-level provider. I reviewed and agree with the findings presented. I attest that I had a [id number] encounter with the patient on the same day, and personally performed and documented my assessment and findings in the medical record. (Lewis Mae MD) Amparo Longoria Dec 22, 2017 17:11 Lewis Mae MD Dec 25, 2017 13:51
[2017-12-22] MEDS: ATORVASTATIN 40 MG TAB PO SCH (19:55)
[2017-12-22] MEDS: LORazepam 2 MG TAB PO PRN (19:55)
[2017-12-23] VITALS (14 sets, daily range): BP systolic 110–141; BP diastolic 78–93; PULSE 70–108; RESP 14–22; TEMP 97.6–97.8; O2SAT 97–100
[2017-12-23] MEDS: niCARdipine 25 MG/NS 250 ML Vial2Bag or IV room IV PRN ×2 (00:41)
[2017-12-23] MEDS: LORazepam 2 MG/ML VIAL IV PUSH PRN ×4 (01:35→16:46)
[2017-12-23] MEDS: SODIUM CHLOR 0.9% 1000 ML INJ 1,000 ML IV SCH ×3 (03:30→21:59)
[2017-12-23] MEDS: CHLORHEXIDINE GLUCONATE 2 % 1 PACK (2 CLOTHS) TOP SCH (03:31)
[2017-12-23 05:26] LABS: BICARBONATE 26.6 MEQ/L (21.0-32.0); CALCIUM 8.4 MG/DL (8.5-10.1); CREATININE 0.84 MG/DL (0.60-1.30)
[2017-12-23] MEDS: POTASSIUM CHLOR 20 MEQ PREMIX 100 ML IV PRN ×4 (05:49→13:14)
[2017-12-23] MEDS: METOPROLOL TARTRATE 25 MG TAB PO SCH ×3 (09:00→22:55)
[2017-12-23] MEDS: LACTULOSE SYRUP 20 GM/30 ML CUP PO SCH (09:00)
[2017-12-23] MEDS: DOCUSATE SODIUM 50 MG/SENNA 8.6 MG TAB PO SCH ×3 (09:00→22:55)
[2017-12-23] MEDS: RIFAXIMIN 550 MG TAB PO SCH ×3 (09:00→22:56)
[2017-12-23] MEDS: levETIRAcetam INJ 500 MG in SODIUM CHLORIDE 0.9% INJ 100 ML IV SCH ×2 (09:02→20:01)
[2017-12-23] MEDS: FAMOTIDINE 20 MG/2 ML VIAL IV PUSH SCH ×2 (09:02→20:01)
--- NOTE | 2017-12-23 15:45 | HHI.CCPN ---
Subjective Remarks/Hospital Course This 71-year-old gentleman presents to the [facility] emergency department with altered mental status and confusion. He has a chronic expressive aphasia and right sided deficit from a previous cerebrovascular accident. His care is complicated by long-term alcohol abuse. CAT scan of the head obtained reveals large bilateral subdural fluid collections which are typical of chronic hematoma. There is considerable compression of the brain and the gentleman is quite confused. I have shown the outside hospital head CT scans to the neurosurgeon on-call during the patient's transportation to our facility and upon his examination the patient requires emergency decompression of both hemispheres. Ammonia 32. INR 1.1 12/22: Alert, but confused. Chronic. Agitated, probable ETOH withdrawal. Will get swallow evaluation. Replace lytes. Start CIWA protocol. 12/23: Agitated. On CIWA protocol. Protects airway after extubation. Suspect ETOH withdrawal. Objective Vital Signs Date Time Temp Pulse Resp B/P (MAP) Pulse Ox O2 Delivery O2 Flow Rate FiO2 12/23/17 08:58 98 12/23/17 06:00 70 12/23/17 04:00 97.7 14 129/87 (101) 12/22/17 21:28 21 12/21/17 23:00 Room Air 12/21/17 22:30 2.00 Intake and Output 12/23/17 12/23/17 12/24/17 08:00 16:00 00:00 Intake Total 240 ml Output Total 2445 ml Balance -2205 ml Result Diagram: 12/22/17 0832 12/23/[address] head: Bilateral subdural fluid collections, large. Objective Remarks Physical exam: Head: Atraumatic, normal Neck: Supple, airway widely patent. Lungs: Clear bilaterally no wheezes or crackles, comfortable respiratory pattern Heart: Normal S1-S2, regular rate and rhythm, no murmur or rub, no jugular venous distention Abdomen: Soft, no guarding, no tenderness bowel sounds are active, nondistended. Extremities: Warm, well-perfused, skin dry. Neurologic exam: Confused but interactive and alert. Somewhat difficult to evaluate completely because of his residual expressive aphasia from a prior stroke. Right upper and lower extremity power function are 2/5. Left leg and arm power function are 5/5 patient tracks with his eyes, calm appearing. Agitated. A/P Assessment and Plan Assessment: 1. Acute on chronic subdural fluid collections, bilateral -> drained. 2. Residual expressive aphasia and right-sided weakness from previous CVA. 3. Chronic alcoholism. 4. COPD, not exacerbated. 5. Previous CVA. 6. Seizures, chronic 7. Hypertension Plan: Neuro: Immediate bilateral decompressive nichol hole surgery -> 12/21 N.p.o. status -> swallow evaluation Head of bed elevated 45. Cardiovascular: Continue outpatient beta-jana therapy Hold EMY inhibitor today Maintenance IV fluid hydration with isotonic crystalloid Wean off cardene and convert to oral meds when swallow eval clears Respiratory: Bronchodilators every 6 hours as needed wheezing Incentive spirometry GI: n.p.o. : Postoperative Bean insertion for strict I&0 Endocrine: Sliding scale insulin for euglycemia Hematology: CBC for fever Postoperative hemoglobin determination ID: Culture for fevers No obvious infection at this time Prophylaxis: Pepcid for GI ulcer protection SCD4 DVT prophylaxis PT/OT Overall impression: This gentleman has accumulated life-threatening bilateral subdural fluid collections, likely started as subdural hemorrhage and has progressed to the chronic status. The gentleman presented critically ill with a life-threatening and deteriorating neurologic condition. He required emergency decompression of both hemispheres but was easily extubated after surgery. Although agitated from withdrawal of alcohol he is improved from preop. Bertin Jasso MD Dec 23, 2017 15:45
--- NOTE | 2017-12-23 16:48 | HHI.NSPN ---
History Interval History Patient status post placement of bur holes for chronic subdural hematoma. Nurses report that he has been sleeping all day but now is awake System Review Comments Unobtainable Exam Results Vital Signs Date Time Temp Pulse Resp B/P (MAP) Pulse Ox O2 Delivery O2 Flow Rate FiO2 12/23/17 16:12 97.8 106 21 138/91 (107) 100 12/22/17 21:28 21 12/21/17 23:00 Room Air 12/21/17 22:30 2.00 Intake and Output 12/23/17 12/23/17 12/23/17 07:59 15:59 23:59 Intake Total 240 ml 505 ml Output Total 2445 ml Balance -2205 ml 505 ml Physical Examination Alert and awake. Tends to repeat. Difficulty following commands. Drains are in place Tends to move all extremities Medical Decision Making Impression and Plan Patient appears stable and doing well. Is alert and awake. Expressive and receptive aphasia. Tends to perseverate We will order his repeat CT in the morning Gio Vaughn MD Dec 23, 2017 16:48
[2017-12-23] MEDS: ATORVASTATIN 40 MG TAB PO SCH ×2 (20:01→22:55)
[2017-12-24] VITALS (15 sets, daily range): BP systolic 125–148; BP diastolic 75–98; PULSE 65–114; RESP 10–26; TEMP 97.7–98.8; O2SAT 96–100
[2017-12-24] MEDS: niCARdipine 25 MG/NS 250 ML Vial2Bag or IV room IV PRN ×4 (00:26→10:24)
--- NOTE | 2017-12-24 02:36 | RADRPT ---
EXAM DATE/TIME: 12/24/2017 02:02 [place] COMPARISON: CT BRAIN W/O CONTRAST, December 21, 2017, 12:48. INDICATIONS : Post operative drain. RADIATION DOSE: 37.77 CTDIvol (mGy) MEDICAL HISTORY : Non-responsive. SURGICAL HISTORY : Non-responsive. ENCOUNTER: Subsequent ACUITY: 2 days PAIN SCALE: Non-responsive LOCATION: cranial TECHNIQUE: Multiple contiguous axial images were obtained of the head. Using automated exposure control and adj ustment of the mA and/or kV according to patient size, radiation dose was kept as low as reasonably a chievable to obtain optimal diagnostic quality images. DICOM format image data is available electro nically for review and comparison. FINDINGS: There has been interval placement of bilateral subdural drainage catheters with interval decreas e in the bilateral subdural hematomas. There is mild or residual collections with an area of new high density acute hemorrhage over the right frontal lobe best seen on axial image #9. This measures up t o approximately 1.4 cm in greatest diameter. bilaterally greatest over the frontal lobes. There are i s no new mass effect. There is no midline shift. The posterior fossa and brainstem remain unremarkabl e. There is mild to moderate atrophic change. The bone windows demonstrate placement of nichol holes. CONCLUSION: 1. Interval placement of bilateral subdural drainage catheters with decrease in the size of the bilat eral subdural collections. 2. New area of acute high-density hemorrhage over the right frontal lobe measuring up to 1.4 cm. the subdural in this region measured up to 1.4 cm with a lower density collection on the prior study. Martin Jarrett MD on December 24, 2017 at 2:28 Board Certified Radiologist. This report was verified electronically.
[2017-12-24] MEDS: CHLORHEXIDINE GLUCONATE 2 % 1 PACK (2 CLOTHS) TOP SCH ×2 (04:00→20:46)
[2017-12-24 05:51] LABS: BICARBONATE 23.4 MEQ/L (21.0-32.0); CREATININE 0.65 MG/DL (0.60-1.30)
[2017-12-24] MEDS: DOCUSATE SODIUM 50 MG/SENNA 8.6 MG TAB PO SCH ×2 (08:10→21:00)
[2017-12-24] MEDS: RIFAXIMIN 550 MG TAB PO SCH ×3 (08:10→20:45)
[2017-12-24] MEDS: FAMOTIDINE 20 MG/2 ML VIAL IV PUSH SCH ×2 (08:10→20:44)
[2017-12-24] MEDS: METOPROLOL TARTRATE 25 MG TAB PO SCH ×3 (08:10→20:45)
[2017-12-24] MEDS: levETIRAcetam INJ 500 MG in SODIUM CHLORIDE 0.9% INJ 100 ML IV SCH ×2 (08:10→20:44)
[2017-12-24] MEDS: LACTULOSE SYRUP 20 GM/30 ML CUP PO SCH (08:10)
[2017-12-24] MEDS: SODIUM CHLOR 0.9% 1000 ML INJ 1,000 ML IV SCH ×2 (09:54→16:38)
[2017-12-24] MEDS: LORazepam 2 MG/ML VIAL IV PUSH PRN ×2 (10:03→14:01)
--- NOTE | 2017-12-24 11:44 | HHI.CCPN ---
Subjective Remarks/Hospital Course This 71-year-old gentleman presents to the [facility] emergency department with altered mental status and confusion. He has a chronic expressive aphasia and right sided deficit from a previous cerebrovascular accident. His care is complicated by long-term alcohol abuse. CAT scan of the head obtained reveals large bilateral subdural fluid collections which are typical of chronic hematoma. There is considerable compression of the brain and the gentleman is quite confused. I have shown the outside hospital head CT scans to the neurosurgeon on-call during the patient's transportation to our facility and upon his examination the patient requires emergency decompression of both hemispheres. Ammonia 32. INR 1.1 12/22: Alert, but confused. Chronic. Agitated, probable ETOH withdrawal. Will get swallow evaluation. Replace lytes. Start CIWA protocol. 12/23: Agitated. On CIWA protocol. Protects airway after extubation. Suspect ETOH withdrawal. 12/24: Repeat CAT scan with small collection of subdural blood right frontal lobe region. No mass-effect. Considering the large size of the subdural collections bilaterally prior to surgery It is expected that the brain will not immediately refill the cranial vault. The gentleman is presently in the throes of alcoholic withdrawal. Objective Vital Signs Date Time Temp Pulse Resp B/P (MAP) Pulse Ox O2 Delivery O2 Flow Rate FiO2 12/24/17 10:24 75 169/99 12/24/17 08:00 98.0 10 100 12/24/17 07:17 21 12/21/17 23:00 Room Air 12/21/17 22:30 2.00 Intake and Output 12/24/17 12/24/17 12/25/17 08:00 16:00 00:00 Intake Total 240 ml 105 ml Output Total 758 ml Balance -518 ml 105 ml Result Diagram: 12/22/17 0832 12/24/[address] head: Bilateral subdural fluid collections, large. Objective Remarks Physical exam: Head: Atraumatic, normal Neck: Supple, airway widely patent. Lungs: Clear bilaterally no wheezes or crackles, comfortable respiratory pattern , strong cough Heart: Normal S1-S2, regular rate and rhythm, no murmur or rub, no jugular venous distention Abdomen: Soft, no guarding, no tenderness bowel sounds are active, nondistended. Benign Extremities: Warm, well-perfused, skin dry. Neurologic exam: Confused but interactive and alert. Somewhat difficult to evaluate completely because of his residual expressive aphasia from a prior stroke. Right upper and lower extremity power function are 3/5. Left leg and arm power function are 5/5 patient tracks with his eyes, calm appearing. Calm this morning A/P Assessment and Plan Assessment: 1. Acute on chronic subdural fluid collections, bilateral -> drained. 2. Residual expressive aphasia and right-sided weakness from previous CVA. 3. Chronic alcoholism. 4. COPD, not exacerbated. 5. Previous CVA. 6. Seizures, chronic 7. Hypertension Plan: Neuro: Immediate bilateral decompressive nichol hole surgery -> 12/21 N.p.o. status -> swallow evaluation Head of bed elevated 45. Cardiovascular: Continue outpatient beta-jana therapy Hold EMY inhibitor today Maintenance IV fluid hydration with isotonic crystalloid Wean off cardene and convert to oral meds when swallow eval clears Respiratory: Bronchodilators every 6 hours as needed wheezing Incentive spirometry GI: n.p.o. : Postoperative Bean insertion for strict I&0 Endocrine: Sliding scale insulin for euglycemia Hematology: CBC for fever Postoperative hemoglobin determination ID: Culture for fevers No obvious infection at this time Prophylaxis: Pepcid for GI ulcer protection SCD4 DVT prophylaxis PT/OT Overall impression: This gentleman has accumulated bilateral subdural fluid collections, likely started as subdural hemorrhage and has progressed to the chronic status. The gentleman presented critically ill with a life-threatening and deteriorating neurologic condition. He required emergency decompression of both hemispheres but was easily extubated after surgery. Although agitated from withdrawal of alcohol he remains neurologically improved from preop. Bertin Jasso MD Dec 24, 2017 11:44
--- NOTE | 2017-12-24 15:22 | HHI.NSPN ---
History Interval History Patient status post placement of bur holes for chronic subdural hematoma. Nurses report that he has been sleeping all day but now is awake Exam Results Vital Signs Date Time Temp Pulse Resp B/P (MAP) Pulse Ox O2 Delivery O2 Flow Rate FiO2 12/24/17 14:00 114 12/24/17 12:00 98.5 10 130/75 (93) 100 12/24/17 07:17 21 12/21/17 23:00 Room Air 12/21/17 22:30 2.00 Intake and Output 12/24/17 12/24/17 12/25/17 08:00 16:00 00:00 Intake Total 240 ml 105 ml Output Total 758 ml Balance -518 ml 105 ml Physical Examination Alert and awake. Tends to repeat. Difficulty following commands. Drains are in place Tends to move all extremities Lab, Micro, Other Results CT scan reviewed subdural collections are improved. Residual subdural present. Some acute subdural hematoma in the right frontal area Medical Decision Making Impression and Plan Patient appears stable and doing well. Is alert and awake. Expressive and receptive aphasia. Tends to perseverate Drains have small output. May consider removal in 24 hours Gio Vaughn MD Dec 24, 2017 15:22
[2017-12-24] MEDS: LORazepam 2 MG TAB PO PRN (20:44)
[2017-12-24] MEDS: ATORVASTATIN 40 MG TAB PO SCH (20:45)
[2017-12-25] VITALS (13 sets, daily range): BP systolic 110–143; BP diastolic 78–96; PULSE 57–150; RESP 18–35; TEMP 97.7–98.7; O2SAT 95–99
[2017-12-25] MEDS: LORazepam 2 MG/ML VIAL IV PUSH PRN ×3 (06:52→13:15)
[2017-12-25] MEDS: niCARdipine 25 MG/NS 250 ML Vial2Bag or IV room IV PRN ×2 (06:55)
[2017-12-25] MEDS: FAMOTIDINE 20 MG/2 ML VIAL IV PUSH SCH ×2 (07:56→21:43)
[2017-12-25] MEDS: METOPROLOL TARTRATE 25 MG TAB PO SCH ×2 (07:57→21:43)
[2017-12-25] MEDS: RIFAXIMIN 550 MG TAB PO SCH ×2 (07:57→21:42)
[2017-12-25] MEDS: LACTULOSE SYRUP 20 GM/30 ML CUP PO SCH (07:57)
[2017-12-25] MEDS: DOCUSATE SODIUM 50 MG/SENNA 8.6 MG TAB PO SCH ×2 (07:57→21:42)
[2017-12-25] MEDS: levETIRAcetam INJ 500 MG in SODIUM CHLORIDE 0.9% INJ 100 ML IV SCH ×2 (07:57→21:43)
--- NOTE | 2017-12-25 09:13 | HHI.CCPN ---
Subjective Remarks/Hospital Course This 71-year-old gentleman presents to the [facility] emergency department with altered mental status and confusion. He has a chronic expressive aphasia and right sided deficit from a previous cerebrovascular accident. His care is complicated by long-term alcohol abuse. CAT scan of the head obtained reveals large bilateral subdural fluid collections which are typical of chronic hematoma. There is considerable compression of the brain and the gentleman is quite confused. I have shown the outside hospital head CT scans to the neurosurgeon on-call during the patient's transportation to our facility and upon his examination the patient requires emergency decompression of both hemispheres. Ammonia 32. INR 1.1 12/22: Alert, but confused. Chronic. Agitated, probable ETOH withdrawal. Will get swallow evaluation. Replace lytes. Start CIWA protocol. 12/23: Agitated. On CIWA protocol. Protects airway after extubation. Suspect ETOH withdrawal. 12/24: Repeat CAT scan with small collection of subdural blood right frontal lobe region. No mass-effect. Considering the large size of the subdural collections bilaterally prior to surgery It is expected that the brain will not immediately refill the cranial vault. The gentleman is presently in the throes of alcoholic withdrawal. 12/25: Remains agitated. Plenty of benzos so far, will add atypical antipsychotic. Objective Vital Signs Date Time Temp Pulse Resp B/P (MAP) Pulse Ox O2 Delivery O2 Flow Rate FiO2 12/25/17 08:00 104 12/25/17 08:00 97.9 19 129/82 (98) 95 12/25/17 07:19 21 12/21/17 23:00 Room Air 12/21/17 22:30 2.00 Intake and Output 12/25/17 12/25/17 12/26/17 08:00 16:00 00:00 Intake Total 105 ml Balance 105 ml Result Diagram: 12/22/17 0832 12/24/[address] head: Bilateral subdural fluid collections, large. Objective Remarks Physical exam: Head: Atraumatic, normal Neck: Supple, airway widely patent. Lungs: Clear bilaterally no wheezes or crackles, comfortable respiratory pattern , strong cough Heart: Normal S1-S2, regular rate and rhythm, no murmur or rub, no JVD. Abdomen: Soft, no guarding, no tenderness bowel sounds are active, nondistended. Benign Extremities: Warm, well-perfused, skin dry. Neurologic exam: Confused but interactive and alert. Residual expressive aphasia from a prior stroke. Right upper and lower extremity power function are 3/5. Left leg and arm power function are 5/5 patient tracks with his eyes, calm appearing but intermittently very agitated and difficult to control. A/P Assessment and Plan Assessment: 1. Acute on chronic subdural fluid collections, bilateral -> drained. 2. Residual expressive aphasia and right-sided weakness from previous CVA. 3. Chronic alcoholism. 4. COPD, not exacerbated. 5. Previous CVA. 6. Seizures, chronic 7. Hypertension Plan: Neuro: Immediate bilateral decompressive nichol hole surgery -> 12/21 N.p.o. status -> swallow evaluation Head of bed elevated 45. Cardiovascular: Continue outpatient beta-jana therapy Hold EMY inhibitor today Maintenance IV fluid hydration with isotonic crystalloid Wean off cardene and convert to oral meds when swallow eval clears Respiratory: Bronchodilators every 6 hours as needed wheezing Incentive spirometry GI: n.p.o. : Postoperative Bean insertion for strict I&0 Endocrine: Sliding scale insulin for euglycemia Hematology: CBC for fever Postoperative hemoglobin determination ID: Culture for fevers No obvious infection at this time Prophylaxis: Pepcid for GI ulcer protection SCD4 DVT prophylaxis PT/OT Overall impression: This gentleman has accumulated bilateral subdural fluid collections, likely started as subdural hemorrhage and has progressed to the chronic status. He required emergency decompression of both hemispheres but was easily extubated after surgery. Although agitated from withdrawal of alcohol he remains neurologically improved from preop. Will add geodon for agitation control. Bertin Jasso MD Dec 25, 2017 09:13
[2017-12-25] MEDS: ZIPRASIDONE MESYLATE 20 MG VIAL IM PRN (09:46)
[2017-12-25] MEDS ORDERED: METOPROLOL TARTRATE 5 MG/5 ML VIAL ONE (11:15)
[2017-12-25] MEDS: SODIUM CHLOR 0.9% 1000 ML INJ 1,000 ML IV SCH (11:57)
--- NOTE | 2017-12-25 11:58 | HHI.NSPN ---
History Interval History Patient status post placement of bur holes for chronic subdural hematoma. Nurses report that he is more awake Exam Results Vital Signs Date Time Temp Pulse Resp B/P (MAP) Pulse Ox O2 Delivery O2 Flow Rate FiO2 12/25/17 08:00 104 12/25/17 08:00 97.9 19 129/82 (98) 95 12/25/17 07:19 21 12/21/17 23:00 Room Air 12/21/17 22:30 2.00 Intake and Output 12/25/17 12/25/17 12/26/17 08:00 16:00 00:00 Intake Total 105 ml Balance 105 ml Physical Examination Alert and awake. Tends to repeat. Difficulty following commands. Expressive aphasia Drains are in place. Little output from drains Tends to move all extremities Medical Decision Making Impression and Plan Patient appears stable and doing well. Is alert and awake. Expressive and receptive aphasia. Tends to perseverate Drains have small output. Drains removed. Before removal of the drains had episode of uncontrolled tachycardia. Will need to be watched for 24 hours in the ICU Gio Vaughn MD Dec 25, 2017 11:58
[2017-12-25] MEDS ORDERED: METOPROLOL TARTRATE 5 MG/5 ML VIAL IV PUSH PRN ×2 (12:15→13:00)
[2017-12-25] MEDS: ENALAPRILAT 2.5 MG/2 ML VIAL IV PUSH PRN (15:01)
[2017-12-25] MEDS: DEXMEDETOMIDINE INJ 200 MCG in SODIUM CHLORIDE 0.9% INJ 50 ML IV PRN ×2 (15:48→21:52)
[2017-12-25] MEDS: ATORVASTATIN 40 MG TAB PO SCH (21:43)
[2017-12-26] VITALS (14 sets, daily range): BP systolic 126–169; BP diastolic 77–103; PULSE 56–98; RESP 17–22; TEMP 97.6–98.4; O2SAT 98–100
[2017-12-26] MEDS: CHLORHEXIDINE GLUCONATE 2 % 1 PACK (2 CLOTHS) TOP SCH (04:00)
[2017-12-26 05:53] LABS: BICARBONATE 21.8 MEQ/L (21.0-32.0); CALCIUM 8.4 MG/DL (8.5-10.1); CREATININE 0.68 MG/DL (0.60-1.30)
[2017-12-26] MEDS: SODIUM CHLOR 0.9% 1000 ML INJ 1,000 ML IV SCH ×3 (07:13→09:00)
[2017-12-26] MEDS: POTASSIUM CHLOR 20 MEQ PREMIX 100 ML IV PRN ×4 (07:13→20:14)
[2017-12-26] MEDS: levETIRAcetam INJ 500 MG in SODIUM CHLORIDE 0.9% INJ 100 ML IV SCH ×2 (12:17→21:12)
[2017-12-26] MEDS: FAMOTIDINE 20 MG/2 ML VIAL IV PUSH SCH (12:18)
[2017-12-26] MEDS: DOCUSATE SODIUM 50 MG/SENNA 8.6 MG TAB PO SCH ×2 (12:18→21:00)
[2017-12-26] MEDS: LACTULOSE SYRUP 20 GM/30 ML CUP PO SCH (12:19)
[2017-12-26] MEDS: METOPROLOL TARTRATE 25 MG TAB PO SCH ×2 (12:19→21:13)
[2017-12-26] MEDS: RIFAXIMIN 550 MG TAB PO SCH ×2 (12:19→21:13)
--- NOTE | 2017-12-26 13:23 | HHI.NSPN ---
Note Status Status: Progress Note Interval History Interval History Mr. East is a 71 year old male who presented to [facility] as a transfer from [facility] for evaluation of subdural hematoma. History cannot be obtained from the patient and no family at bedside thus history obtained from the patient's chart. Mr. Oquendo has a history of chronic aphasia and right side weakness from a prior stroke. He also has a history of chronic etoh abuse. He presented to [place] ED with confusion and AMS. A CT Brain had shown large bilateral subdural fluid collections with mass effect of the brain. A neurosurgical evaluation was requested for surgical decompression. 12/22: doing well, appears much more awake, talking but speech is confused, not really following commands, smiling and very pleasant. bilateral subdural drains in place 12/26: Currently mildly sedated on Precedex due to mild agitation and restlessness. His subdural drains were removed over the weekend. Otherwise nurse reports no significant overall changes to neuro checks. Chronic aphasia. Labs, Micro, & Vital Signs Results Date Time Temp Pulse Resp B/P (MAP) Pulse Ox O2 Delivery O2 Flow Rate FiO2 12/26/17 07:38 99 21 12/26/17 06:00 61 12/26/17 04:00 56 12/26/17 04:00 98.2 56 22 126/77 (93) 100 12/26/17 02:00 57 12/26/17 00:00 78 12/26/17 00:00 98.0 77 22 143/89 (107) 100 12/25/17 22:00 77 12/25/17 20:00 97.9 57 24 110/78 (89) 98 12/25/17 20:00 59 12/25/17 18:00 66 12/25/17 16:00 97.7 110 22 143/90 (107) 97 12/25/17 16:00 110 12/25/17 14:00 116 12/27/17 07:00 Intake Total 638 ml Balance 638 ml Constitutional Vital Signs Date Time Temp Pulse Resp B/P (MAP) Pulse Ox O2 Delivery O2 Flow Rate FiO2 12/26/17 07:38 99 21 12/26/17 06:00 61 12/26/17 04:00 56 12/26/17 04:00 98.2 56 22 126/77 (93) 100 12/26/17 02:00 57 12/26/17 00:00 78 12/26/17 00:00 98.0 77 22 143/89 (107) 100 12/25/17 22:00 77 12/25/17 20:00 97.9 57 24 110/78 (89) 98 12/25/17 20:00 59 12/25/17 18:00 66 12/25/17 16:00 97.7 110 22 143/90 (107) 97 12/25/17 16:00 110 12/25/17 14:00 116 12/27/17 07:00 Intake Total 638 ml Balance 638 ml Physical Exam General: In bed, in no acute distress. Pleasant, smiling. HEENT: Normocephalic. Nonicteric sclera. No nasal or otic drainage. Surgical wounds are healing well, clean and dry without evidence of infection. Neuro: Currently sedated on Precedex. Minimal eye opening. Currently not following commands. Cranial nerve examination: pupils equal, round, and reactive to light. Facial motor appears symmetrical. Exam limited due to clinical condition. Neck is soft and supple. Musculoskeletal: Exam limited due to clinical condition, currently sedated. Sensory examination: Responds to pain stimuli, left greater than right Heart: regular rate, rhythm Resp: clear, no wheezes, nonlabored breathing Skin: warm, dry, no cyanosis or erythema Medications Current Medications Current Medications Medications (Trade) Dose Ordered Sig/Ole Route PRN Reason Start Time Stop Time Status Last Admin Dose Admin Sodium Chloride 1,000 ml @ 75 mls/hr [id number] IV 12/21/17 11:54 12/26/17 08:54 Ondansetron HCl (Zofran Inj) 4 mg Q6H PRN IV PUSH NAUSEA OR VOMITING 12/21/17 12:00 Albuterol/ Ipratropium (Duoneb Neb) 1 ampule Q4HR NEB PRN INH WHEEZING 12/21/17 12:00 Miscellaneous Information 1 [id number] XX 12/21/17 12:00 12/21/17 12:00 Chlorhexidine Gluconate (Chlorhexidine 2% Cloth) 3 pack Taper DAILY@04 TOP 12/22/17 04:00 12/18/18 03:59 12/26/17 04:00 Chlorhexidine Gluconate (Chlorhexidine 2% Cloth) 3 pack UNSCH PRN TOP HYGIENIC CARE 12/21/17 12:00 Senna/Docusate Sodium (Rossana-Colace) 1 tab BID PO 12/21/17 21:00 12/26/17 12:18 Magnesium Hydroxide (Milk Of Magnesia Liq) 30 ml Q12H PRN PO Mild constipation 12/21/17 12:00 Sennosides (Senokot) 17.2 mg Q12H PRN PO Moderate constipation 12/21/17 12:00 Bisacodyl (Dulcolax Supp) 10 mg DAILY PRN RECTAL SEVERE CONSITIPATION 12/21/17 12:00 Lactulose (Lactulose Liq) 30 ml DAILY PRN PO SEVERE CONSITIPATION 12/21/17 12:00 Lactulose (Lactulose Liq) 30 ml DAILY PO 12/22/17 09:00 12/26/17 12:19 Levetriacetam 500 mg/Sodium Chloride 105 ml @ 420 mls/hr Q12HR IV 12/21/17 21:00 12/26/17 12:17 Rifaximin (Xifaxan) 550 mg BID PO 12/21/17 21:00 12/26/17 12:19 Atorvastatin Calcium (Lipitor) 40 mg HS PO 12/21/17 21:00 12/25/17 21:43 Metoprolol Tartrate (Lopressor) 25 mg Q12HR PO 12/21/17 21:00 12/26/17 12:19 Nicardipine HCl 25 mg/Sodium Chloride 250 ml @ 50 mls/hr TITRATE PRN IV Blood Pressure Management 12/22/17 04:00 12/25/17 06:55 Flumazenil (Romazicon Inj) 0.2 mg Q1M PRN IV PUSH SEE LABEL COMMENTS 12/22/17 16:00 Lorazepam (Ativan) 1 mg Q4H PRN PO CIWA 8 - 10 12/22/17 16:00 Lorazepam (Ativan Inj) 1 mg Q4H PRN IV PUSH CIWA 8 - 10 12/22/17 16:00 12/25/17 13:15 Lorazepam (Ativan) 2 mg Q2H PRN PO CIWA 11-14 12/22/17 16:00 12/24/17 20:44 Lorazepam (Ativan Inj) 2 mg Q2H PRN IV PUSH CIWA 11-14 12/22/17 16:00 12/25/17 10:30 Lorazepam (Ativan Inj) 2 mg Q1H PRN IV PUSH CIWA 15-20 12/22/17 16:00 12/25/17 06:52 Lorazepam (Ativan Inj) 2 mg Q15M PRN IV PUSH CIWA > 20 12/22/17 16:00 12/22/17 23:08 Potassium Chloride 100 ml @ 50 mls/hr Q2H PRN IV For Potassium 2.8 - 3.2 mEq/L 12/22/17 16:00 Potassium Chloride 100 ml @ 50 mls/hr Q2H PRN IV For Potassium 2.8 - 3.2 mEq/L 12/22/17 16:00 12/26/17 12:30 Potassium Bicarb/ Potassium Chloride (K-Lyte Cl Eff) 50 meq UNSCH PRN PO For Potassium 3.3 - 3.5 mEq/L 12/22/17 16:00 12/22/17 16:36 Potassium Chloride 100 ml @ 25 mls/hr UNSCH PRN IV For Potassium 3.3 - 3.5 mEq/L 12/22/17 16:00 Potassium Chloride 100 ml @ 50 mls/hr Q2H PRN IV For Potassium 3.3 - 3.5 mEq/L 12/22/17 16:00 Magnesium Sulfate 4 gm/Sodium Chloride 100 ml @ 50 mls/hr UNSCH PRN IV For Magnesium 0.9 - 1.1 mg/dL 12/22/17 16:00 Magnesium Oxide (Mag-Ox) 800 mg UNSCH PRN PO For Magnesium 1.2 - 1.6 mg/dL 12/22/17 16:00 Magnesium Sulfate 2 gm/Sodium Chloride 100 ml @ 50 mls/hr UNSCH PRN IV For Magnesium 1.2 - 1.6 mg/dL 12/22/17 16:00 Potassium Phosphate (K-Phos) 2,000 mg Q4H PRN PO For Phosphorus < 2.5 mg/dL 12/22/17 16:00 Sodium Phosphate 30 mmol/Sodium Chloride 250 ml @ 42 mls/hr UNSCH PRN IV For Phosphorus < 2.5 mg/dL 12/22/17 16:00 Potassium Phosphate (K-Phos) 2,000 mg UNSCH PRN PO/TUBE SEE LABEL COMMENTS 12/22/17 16:00 Potassium Phosphate 30 mmol/ Sodium Chloride 260 ml @ 42 mls/hr UNSCH PRN IV SEE LABEL COMMENTS 12/22/17 16:00 Ziprasidone (Geodon Inj) 20 mg Q12H PRN IM SEVERE AGITATION 12/25/17 10:00 12/25/17 09:46 Enalaprilat (Vasotec Inj) 2.5 mg Q4H PRN IV PUSH SBP > 160 12/25/17 11:00 12/25/17 15:01 Metoprolol Tartrate (Lopressor Inj) 5 mg Q1H PRN IV PUSH Pulse rate > 130 12/25/17 13:00 12/25/17 13:15 Dexmedetomidine HCl 200 mcg/ Sodium Chloride 52 ml @ 2.9 mls/hr TITRATE PRN IV SEDATION 12/25/17 16:00 12/25/17 21:52 Famotidine (Pepcid) 20 mg BID PO 12/26/17 21:00 Medical Decision Making MDM Remarks 71 y/o male s/p bilateral frontal nichol hole for evacuation of subdural hygroma chronic aphasia with chronic right hemiparesis from old CVA Plan Plan Remarks cont neuro checks therapy and rehab efforts Amparo Longoria Dec 26, 2017 13:23
[2017-12-26] MEDS: DEXMEDETOMIDINE INJ 200 MCG in SODIUM CHLORIDE 0.9% INJ 50 ML IV PRN (14:45)
[2017-12-26] MEDS ORDERED: NIFEdipine 30 MG SUSTAINED RELEASE TAB PO ONE (15:45)
--- NOTE | 2017-12-26 15:53 | HHI.PR ---
Subjective Remarks Follow up for SDH s/p drainage. Patient wakes up on verbal commands. Follows simple commands. However, he has persistent expressive and receptive dysphasia. Tolerating diet well. Objective Vitals Vital Signs Date Time Temp Pulse Resp B/P (MAP) Pulse Ox O2 Delivery O2 Flow Rate FiO2 12/26/17 07:38 99 21 12/26/17 06:00 61 12/26/17 04:00 56 12/26/17 04:00 98.2 56 22 126/77 (93) 100 12/26/17 02:00 57 12/26/17 00:00 78 12/26/17 00:00 98.0 77 22 143/89 (107) 100 12/25/17 22:00 77 12/25/17 20:00 97.9 57 24 110/78 (89) 98 12/25/17 20:00 59 12/25/17 18:00 66 12/25/17 16:00 97.7 110 22 143/90 (107) 97 12/25/17 16:00 110 I/O 12/25/17 12/25/17 12/25/17 12/26/17 12/26/17 12/26/17 07:00 15:00 23:00 07:00 15:00 23:00 Intake Total 105 ml 240 ml 638 ml Output Total 1100 ml 800 ml Balance 105 ml -1100 ml -560 ml 638 ml Intake Oral 240 ml 450 ml IV Total 105 ml 188 ml Output Urine Total 1100 ml 800 ml # Bowel Movements 0 0 Result Diagram: 12/22/17 0832 12/26/17 0410 Imaging Last Impressions Head CT 12/24/17 0600 Signed Impressions: Service Date/Time: Sunday, December 24, 2017 02:02 - CONCLUSION: 1. Interval placement of bilateral subdural drainage catheters with decrease in the size of the bilateral subdural collections. 2. New area of acute high-density hemorrhage over the right frontal lobe measuring up to 1.4 cm. the subdural in this region measured up to 1.4 cm with a lower density collection on the prior study. Martin Jarrett MD Objective Remarks GENERAL: Alert, NAD. SKIN: Warm and dry. HEAD: Normocephalic. EYES: No scleral icterus. No injection or drainage. NECK: Supple, trachea midline. No JVD or lymphadenopathy. CARDIOVASCULAR: Regular rate and rhythm without murmurs, gallops, or rubs. RESPIRATORY: Breath sounds equal bilaterally. No accessory muscle use. GASTROINTESTINAL: Abdomen soft, non-tender, nondistended. MUSCULOSKELETAL: No cyanosis, or edema. BACK: Nontender without obvious deformity. No CVA tenderness. Procedures 12/21/2017 Right frontal nichol border hole with evacuation or subdural hematoma Left frontal nichol border hole with evacuation or subdural hematoma A/P Problem List: (1) Bilateral subdural hematomas ICD Code: S06.5X9A - Traumatic subdural hemorrhage with loss of consciousness of unspecified duration, initial encounter (2) HTN (hypertension) ICD Code: I10 - Essential (primary) hypertension Assessment and Plan Mr. East is a 71-year-old -[place] gentleman who originally presented to [facility] emergency department with altered mental status and confusion. He has chronic expressive aphasia and right-sided deficit from a previous stroke. CT scan indicated large bilateral subdural fluid collection. Subsequently after consulting with neurosurgeon patient was brought to [facility] and underwent emergent decompressive surgery for subdural hematoma. He was managed in the ICU. He was given CIWA protocol for alcohol abuse. His care was transferred to hospitalist service on 12/26/2017. Large bilateral subdural hematoma History of previous stroke Status post bilateral frontal bar border hole with evacuation of subdural hematoma. Drains are discontinued by neurosurgery. Neurosurgery continues to follow this patient. Continue Lipitor 40 mg nightly. Alcohol withdrawal Agitation Patient is currently on CIWA protocol as well as Precedex. Will try to discontinue Precedex by tomorrow. Start Seroquel 50 mg twice daily. Hypertension Start nifedipine 30 mg daily. Full code. SCDs. Christiano Zheng DO Dec 26, 2017 3:53 pm
[2017-12-26] MEDS: ENALAPRILAT 2.5 MG/2 ML VIAL IV PUSH PRN (16:54)
[2017-12-26] MEDS: FAMOTIDINE 20 MG TAB PO SCH (21:13)
[2017-12-26] MEDS: QUEtiapine FUMARATE 25 MG TAB PO SCH (21:13)
[2017-12-26] MEDS: ATORVASTATIN 40 MG TAB PO SCH (21:13)
[2017-12-26] MEDS: LORazepam 2 MG/ML VIAL IV PUSH PRN (21:29)
[2017-12-27] VITALS (13 sets, daily range): BP systolic 99–157; BP diastolic 62–90; PULSE 61–110; RESP 16–26; TEMP 97.8–99; O2SAT 97–100
--- NOTE | 2017-12-27 00:34 | EKG ---
Date Performed: 12/25/2017 Time Performed: 11:16:16 PTAGE: 71 years EKG: SUPRA VENTRICULAR TACHYCARDIA Extensive ST changes are nonspecific Abnormal ECG NO PREVIOUS TRACING DOCTOR: Mitchell Shipman Interpretating Date/Time 12/27/2017 00:20:07
[2017-12-27] MEDS: DEXMEDETOMIDINE INJ 200 MCG in SODIUM CHLORIDE 0.9% INJ 50 ML IV PRN ×2 (02:24→06:55)
[2017-12-27] MEDS: CHLORHEXIDINE GLUCONATE 2 % 1 PACK (2 CLOTHS) TOP SCH (04:00)
[2017-12-27] MEDS: RIFAXIMIN 550 MG TAB PO SCH ×2 (08:30→20:49)
[2017-12-27] MEDS: METOPROLOL TARTRATE 25 MG TAB PO SCH ×2 (08:30→20:50)
[2017-12-27] MEDS: QUEtiapine FUMARATE 25 MG TAB PO SCH ×2 (08:30→20:49)
[2017-12-27] MEDS: FAMOTIDINE 20 MG TAB PO SCH ×2 (08:30→20:50)
[2017-12-27] MEDS: levETIRAcetam INJ 500 MG in SODIUM CHLORIDE 0.9% INJ 100 ML IV SCH ×2 (08:31→20:50)
[2017-12-27] MEDS: NIFEdipine 30 MG SUSTAINED RELEASE TAB PO SCH (08:33)
[2017-12-27] MEDS: LACTULOSE SYRUP 20 GM/30 ML CUP PO SCH (09:00)
[2017-12-27] MEDS: DOCUSATE SODIUM 50 MG/SENNA 8.6 MG TAB PO SCH ×2 (09:00→20:50)
[2017-12-27] MEDS ORDERED: NOREPINEPHRINE 4 MG/4 ML AMP ONE (09:15)
--- NOTE | 2017-12-27 15:59 | HHI.NSPN ---
(Amparo Longoria) Note Status Status: Progress Note (Amparo Longoria) Interval History Interval History Mr. East is a 71 year old male who presented to [facility] as a transfer from [facility] for evaluation of subdural hematoma. History cannot be obtained from the patient and no family at bedside thus history obtained from the patient's chart. Mr. Oquendo has a history of chronic aphasia and right side weakness from a prior stroke. He also has a history of chronic etoh abuse. He presented to [facility] ED with confusion and AMS. A CT Brain had shown large bilateral subdural fluid collections with mass effect of the brain. A neurosurgical evaluation was requested for surgical decompression. 12/22: doing well, appears much more awake, talking but speech is confused, not really following commands, smiling and very pleasant. bilateral subdural drains in place 12/26: Currently mildly sedated on Precedex due to mild agitation and restlessness. His subdural drains were removed over the weekend. Otherwise nurse reports no significant overall changes to neuro checks. Chronic aphasia. 12/27: patient seen and examined this am during rounds. received multiple doses of Ativan last night for agitation, currently also on Precedex drip. Currently appearing comatose due to heavy sedatives. Hypotensive with 77 systolic bp. (Amparo Longoria) Labs, Micro, & Vital Signs Results Date Time Temp Pulse Resp B/P (MAP) Pulse Ox O2 Delivery O2 Flow Rate FiO2 12/27/17 14:00 90 12/27/17 12:00 99.0 73 16 106/68 (81) 99 12/27/17 12:00 73 12/27/17 10:00 82 12/27/17 09:00 65 77/48 12/27/17 08:00 82 12/27/17 08:00 98.3 80 22 157/85 (109) 97 12/27/17 07:46 100 21 12/27/17 06:00 61 12/27/17 04:00 63 12/27/17 04:00 97.8 63 18 99/62 (74) 100 12/27/17 02:00 72 12/27/17 00:00 97.9 84 20 148/82 (104) 97 12/27/17 00:00 81 12/26/17 22:00 87 12/26/17 21:58 98 21 12/26/17 20:00 98.0 89 20 147/95 (112) 98 12/26/17 20:00 81 12/26/17 18:00 94 12/26/17 16:00 98 12/26/17 16:00 98.4 98 20 169/103 (125) 98 Constitutional Vital Signs Date Time Temp Pulse Resp B/P (MAP) Pulse Ox O2 Delivery O2 Flow Rate FiO2 12/27/17 14:00 90 12/27/17 12:00 99.0 73 16 106/68 (81) 99 12/27/17 12:00 73 12/27/17 10:00 82 12/27/17 09:00 65 77/48 12/27/17 08:00 82 12/27/17 08:00 98.3 80 22 157/85 (109) 97 12/27/17 07:46 100 21 12/27/17 06:00 61 12/27/17 04:00 63 12/27/17 04:00 97.8 63 18 99/62 (74) 100 12/27/17 02:00 72 12/27/17 00:00 97.9 84 20 148/82 (104) 97 12/27/17 00:00 81 12/26/17 22:00 87 12/26/17 21:58 98 21 12/26/17 20:00 98.0 89 20 147/95 (112) 98 12/26/17 20:00 81 12/26/17 18:00 94 12/26/17 16:00 98 12/26/17 16:00 98.4 98 20 169/103 (125) 98 (Amparo Longoria) Physical Exam General: Sedated. HEENT: Normocephalic. Nonicteric sclera. No nasal or otic drainage. Surgical wounds are healing well, clean and dry without evidence of infection. Neuro: Heavily sedated. Does not open eyes, not following commands. Comatose. Cranial nerve examination: pupils pinpoint. Neck is soft and supple. Musculoskeletal: Exam limited due to clinical condition, currently sedated. Sensory examination: very minimal to no response to pain. Heart: regular rate, rhythm Resp: clear, Skin: warm, dry, no cyanosis or erythema (Amparo Longoria) Medications Current Medications Current Medications Medications (Trade) Dose Ordered Sig/Ole Route PRN Reason Start Time Stop Time Status Last Admin Dose Admin Sodium Chloride 1,000 ml @ 75 mls/hr [id number] IV 12/21/17 11:54 12/26/17 09:00 Ondansetron HCl (Zofran Inj) 4 mg Q6H PRN IV PUSH NAUSEA OR VOMITING 12/21/17 12:00 Albuterol/ Ipratropium (Duoneb Neb) 1 ampule Q4HR NEB PRN INH WHEEZING 12/21/17 12:00 Miscellaneous Information 1 Q361D XX 12/21/17 12:00 12/21/17 12:00 Chlorhexidine Gluconate (Chlorhexidine 2% Cloth) Taper DAILY@04 TOP 12/22/17 04:00 12/18/18 03:59 12/27/17 04:00 Chlorhexidine Gluconate (Chlorhexidine 2% Cloth) 3 pack UNSCH PRN TOP HYGIENIC CARE 12/21/17 12:00 Senna/Docusate Sodium (Rossana-Colace) 1 tab BID PO 12/21/17 21:00 12/26/17 12:18 Magnesium Hydroxide (Milk Of Magnesia Liq) 30 ml Q12H PRN PO Mild constipation 12/21/17 12:00 Sennosides (Senokot) 17.2 mg Q12H PRN PO Moderate constipation 12/21/17 12:00 Bisacodyl (Dulcolax Supp) 10 mg DAILY PRN RECTAL SEVERE CONSITIPATION 12/21/17 12:00 Lactulose (Lactulose Liq) 30 ml DAILY PRN PO SEVERE CONSITIPATION 12/21/17 12:00 Lactulose (Lactulose Liq) 30 ml DAILY PO 12/22/17 09:00 12/26/17 12:19 Levetriacetam 500 mg/Sodium Chloride 105 ml @ 420 mls/hr Q12HR IV 12/21/17 21:00 12/27/17 08:31 Rifaximin (Xifaxan) 550 mg BID PO 12/21/17 21:00 12/27/17 08:30 Atorvastatin Calcium (Lipitor) 40 mg HS PO 12/21/17 21:00 12/26/17 21:13 Metoprolol Tartrate (Lopressor) 25 mg Q12HR PO 12/21/17 21:00 12/27/17 08:30 Nicardipine HCl 25 mg/Sodium Chloride 250 ml @ 50 mls/hr TITRATE PRN IV Blood Pressure Management 12/22/17 04:00 12/25/17 06:55 Flumazenil (Romazicon Inj) 0.2 mg Q1M PRN IV PUSH SEE LABEL COMMENTS 12/22/17 16:00 Lorazepam (Ativan) 1 mg Q4H PRN PO CIWA 8 - 10 12/22/17 16:00 Lorazepam (Ativan Inj) 1 mg Q4H PRN IV PUSH CIWA 8 - 10 12/22/17 16:00 12/25/17 13:15 Lorazepam (Ativan) 2 mg Q2H PRN PO CIWA 11-14 12/22/17 16:00 12/24/17 20:44 Lorazepam (Ativan Inj) 2 mg Q2H PRN IV PUSH CIWA 11-14 12/22/17 16:00 12/25/17 10:30 Lorazepam (Ativan Inj) 2 mg Q1H PRN IV PUSH CIWA 15-20 12/22/17 16:00 12/26/17 21:29 Lorazepam (Ativan Inj) 2 mg Q15M PRN IV PUSH CIWA > 20 12/22/17 16:00 12/22/17 23:08 Potassium Chloride 100 ml @ 50 mls/hr Q2H PRN IV For Potassium 2.8 - 3.2 mEq/L 12/22/17 16:00 12/27/17 07:52 Potassium Chloride 100 ml @ 50 mls/hr Q2H PRN IV For Potassium 2.8 - 3.2 mEq/L 12/22/17 16:00 12/26/17 20:14 Potassium Bicarb/ Potassium Chloride (K-Lyte Cl Eff) 50 meq UNSCH PRN PO For Potassium 3.3 - 3.5 mEq/L 12/22/17 16:00 12/22/17 16:36 Potassium Chloride 100 ml @ 25 mls/hr UNSCH PRN IV For Potassium 3.3 - 3.5 mEq/L 12/22/17 16:00 Potassium Chloride 100 ml @ 50 mls/hr Q2H PRN IV For Potassium 3.3 - 3.5 mEq/L 12/22/17 16:00 Magnesium Sulfate 4 gm/Sodium Chloride 100 ml @ 50 mls/hr UNSCH PRN IV For Magnesium 0.9 - 1.1 mg/dL 12/22/17 16:00 Magnesium Oxide (Mag-Ox) 800 mg UNSCH PRN PO For Magnesium 1.2 - 1.6 mg/dL 12/22/17 16:00 Magnesium Sulfate 2 gm/Sodium Chloride 100 ml @ 50 mls/hr UNSCH PRN IV For Magnesium 1.2 - 1.6 mg/dL 12/22/17 16:00 Potassium Phosphate (K-Phos) 2,000 mg Q4H PRN PO For Phosphorus < 2.5 mg/dL 12/22/17 16:00 Sodium Phosphate 30 mmol/Sodium Chloride 250 ml @ 42 mls/hr UNSCH PRN IV For Phosphorus < 2.5 mg/dL 12/22/17 16:00 Potassium Phosphate (K-Phos) 2,000 mg UNSCH PRN PO/TUBE SEE LABEL COMMENTS 12/22/17 16:00 Potassium Phosphate 30 mmol/ Sodium Chloride 260 ml @ 42 mls/hr UNSCH PRN IV SEE LABEL COMMENTS 12/22/17 16:00 Ziprasidone (Geodon Inj) 20 mg Q12H PRN IM SEVERE AGITATION 12/25/17 10:00 12/25/17 09:46 Enalaprilat (Vasotec Inj) 2.5 mg Q4H PRN IV PUSH SBP > 160 12/25/17 11:00 12/26/17 16:54 Metoprolol Tartrate (Lopressor Inj) 5 mg Q1H PRN IV PUSH Pulse rate > 130 12/25/17 13:00 12/25/17 13:15 Dexmedetomidine HCl 200 mcg/ Sodium Chloride 52 ml @ 2.9 mls/hr TITRATE PRN IV SEDATION 12/25/17 16:00 12/27/17 06:55 Famotidine (Pepcid) 20 mg BID PO 12/26/17 21:00 12/27/17 08:30 Nifedipine (Procardia Xl) 30 mg DAILY PO 12/27/17 09:00 12/27/17 08:33 Quetiapine Fumarate (SEROquel) 50 mg BID PO 12/26/17 21:00 12/27/17 08:30 (Amparo Longoria) Medical Decision Making MDM Remarks 71 y/o male s/p bilateral frontal nichol hole for evacuation of subdural hygroma , improved per f/u CT Brain chronic aphasia with chronic right 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 I reviewed and agree with the findings presented. I attest that I had a [id number] encounter with the patient on the same day, and personally performed and documented my assessment and findings in the medical record. (Lewis Mae MD) Amparo Longoria Dec 27, 2017 15:59 Lewis Mae MD Dec 30, 2017 19:55
--- NOTE | 2017-12-27 16:46 | HHI.PR ---
Subjective Remarks Follow up for SDH s/p drainage. Patient is doing well. Mostly non-verbal. Smiles but does not follow commands consistently. Family at bedside. No fever, chills. Objective Vitals Vital Signs Date Time Temp Pulse Resp B/P (MAP) Pulse Ox O2 Delivery O2 Flow Rate FiO2 12/27/17 14:00 90 12/27/17 12:00 99.0 73 16 106/68 (81) 99 12/27/17 12:00 73 12/27/17 10:00 82 12/27/17 09:00 65 77/48 12/27/17 08:00 82 12/27/17 08:00 98.3 80 22 157/85 (109) 97 12/27/17 07:46 100 21 12/27/17 06:00 61 12/27/17 04:00 63 12/27/17 04:00 97.8 63 18 99/62 (74) 100 12/27/17 02:00 72 12/27/17 00:00 97.9 84 20 148/82 (104) 97 12/27/17 00:00 81 12/26/17 22:00 87 12/26/17 21:58 98 21 12/26/17 20:00 98.0 89 20 147/95 (112) 98 12/26/17 20:00 81 12/26/17 18:00 94 I/O 12/26/17 12/26/17 12/26/17 12/27/17 12/27/17 12/27/17 07:00 15:00 23:00 07:00 15:00 23:00 Intake Total 240 ml 718 ml 1276 ml 422 ml Output Total 800 ml 400 ml 650 ml Balance -560 ml 718 ml 876 ml -228 ml Intake Oral 240 ml 450 ml 200 ml 320 ml IV Total 268 ml 1076 ml 102 ml Output Urine Total 800 ml 400 ml 650 ml # Bowel Movements 0 1 1 1 1 Result Diagram: 12/27/17 0644 Objective Remarks GENERAL: Alert, NAD. SKIN: Warm and dry. HEAD: Normocephalic. EYES: No scleral icterus. No injection or drainage. NECK: Supple, trachea midline. No JVD or lymphadenopathy. CARDIOVASCULAR: Regular rate and rhythm without murmurs, gallops, or rubs. RESPIRATORY: Breath sounds equal bilaterally. No accessory muscle use. GASTROINTESTINAL: Abdomen soft, non-tender, nondistended. MUSCULOSKELETAL: No cyanosis, or edema. BACK: Nontender without obvious deformity. No CVA tenderness. Procedures 12/21/2017 Right frontal nichol border hole with evacuation or subdural hematoma Left frontal nichol border hole with evacuation or subdural hematoma A/P Problem List: (1) Bilateral subdural hematomas ICD Code: S06.5X9A - Traumatic subdural hemorrhage with loss of consciousness of unspecified duration, initial encounter (2) HTN (hypertension) ICD Code: I10 - Essential (primary) hypertension Assessment and Plan Mr. East is a 71-year-old -Russian gentleman who originally presented to [facility] emergency department with altered mental status and confusion. He has chronic expressive aphasia and right-sided deficit from a previous stroke. CT scan indicated large bilateral subdural fluid collection. Subsequently after consulting with neurosurgeon patient was brought to [facility] and underwent emergent decompressive surgery for subdural hematoma. He was managed in the ICU. He was given [facility] protocol for alcohol abuse. His care was transferred to hospitalist service on 12/26/2017. Large bilateral subdural hematoma History of previous stroke Status post bilateral frontal bar border hole with evacuation of subdural hematoma. Drains are discontinued by neurosurgery. Neurosurgery continues to follow this patient. Continue Lipitor 40 mg nightly. Alcohol withdrawal Agitation Patient is currently on [facility] protocol d/c precedex. Seroquel 50 mg twice daily. Hypertension Nifedipine 30 mg daily with holding parameters. Metoprolol 25mg BID with holding parameters. Full code. SCDs. Patient's son wants him to go to a rehab in [place]. Speech recommends Pureed diet with thin liquids. Christiano Zheng DO Dec 27, 2017 16:46
[2017-12-27] MEDS: ATORVASTATIN 40 MG TAB PO SCH (20:50)
[2017-12-27] MEDS: LORazepam 2 MG/ML VIAL IV PUSH PRN (20:51)
[2017-12-28] VITALS (13 sets, daily range): BP systolic 116–167; BP diastolic 73–101; PULSE 76–142; RESP 18–24; TEMP 97.8–98.6; O2SAT 98–100
[2017-12-28] MEDS: ENALAPRILAT 2.5 MG/2 ML VIAL IV PUSH PRN ×2 (01:43→06:56)
[2017-12-28] MEDS: CHLORHEXIDINE GLUCONATE 2 % 1 PACK (2 CLOTHS) TOP SCH (04:00)
[2017-12-28] MEDS: SODIUM CHLOR 0.9% 1000 ML INJ 1,000 ML IV SCH ×4 (06:19→19:40)
[2017-12-28] MEDS: levETIRAcetam INJ 500 MG in SODIUM CHLORIDE 0.9% INJ 100 ML IV SCH ×2 (08:37→20:29)
[2017-12-28] MEDS: QUEtiapine FUMARATE 25 MG TAB PO SCH ×2 (08:38→20:30)
[2017-12-28] MEDS: DOCUSATE SODIUM 50 MG/SENNA 8.6 MG TAB PO SCH ×2 (08:38→20:30)
[2017-12-28] MEDS: RIFAXIMIN 550 MG TAB PO SCH ×2 (08:38→20:30)
[2017-12-28] MEDS: METOPROLOL TARTRATE 25 MG TAB PO SCH ×2 (08:38→20:30)
[2017-12-28] MEDS: NIFEdipine 30 MG SUSTAINED RELEASE TAB PO SCH (08:38)
[2017-12-28] MEDS: FAMOTIDINE 20 MG TAB PO SCH ×2 (08:38→20:30)
[2017-12-28] MEDS: LACTULOSE SYRUP 20 GM/30 ML CUP PO SCH (08:38)
--- NOTE | 2017-12-28 11:05 | HHI.NSPN ---
(Amparo Longoria) Note Status Status: Progress Note (Amparo Longoria) Interval History Interval History Mr. East is a 71 year old male who presented to [facility] as a transfer from [facility] for evaluation of subdural hematoma. History cannot be obtained from the patient and no family at bedside thus history obtained from the patient's chart. Mr. Oquendo has a history of chronic aphasia and right side weakness from a prior stroke. He also has a history of chronic etoh abuse. He presented to [facility] ED with confusion and AMS. A CT Brain had shown large bilateral subdural fluid collections with mass effect of the brain. A neurosurgical evaluation was requested for surgical decompression. 12/22: doing well, appears much more awake, talking but speech is confused, not really following commands, smiling and very pleasant. bilateral subdural drains in place 12/26: Currently mildly sedated on Precedex due to mild agitation and restlessness. His subdural drains were removed over the weekend. Otherwise nurse reports no significant overall changes to neuro checks. Chronic aphasia. 12/27: patient seen and examined this am during rounds. received multiple doses of Ativan last night for agitation, currently also on Precedex drip. Currently appearing comatose due to heavy sedatives. Hypotensive with 77 systolic bp. 12/28: more awake today, confused, baseline aphasic, moves all four ext. Restless and agitated overnight. (Amparo Longoria) Labs, Micro, & Vital Signs Results Date Time Temp Pulse Resp B/P (MAP) Pulse Ox O2 Delivery O2 Flow Rate FiO2 12/28/17 10:00 98 12/28/17 09:00 98.6 103 18 124/81 (95) 100 12/28/17 08:00 98.6 141 24 165/101 (122) 98 12/28/17 08:00 140 12/28/17 06:00 111 12/28/17 04:00 120 12/28/17 04:00 98.1 114 22 167/86 (113) 99 12/28/17 02:00 104 12/28/17 00:00 97.9 100 22 134/78 (96) 100 12/28/17 00:00 100 12/27/17 22:00 100 12/27/17 20:00 109 12/27/17 20:00 98.0 110 24 156/90 (112) 100 12/27/17 18:00 97 12/27/17 16:00 106 12/27/17 16:00 98.6 106 26 134/81 (98) 98 12/27/17 14:00 90 12/27/17 12:00 99.0 73 16 106/68 (81) 99 12/27/17 12:00 73 Constitutional Vital Signs Date Time Temp Pulse Resp B/P (MAP) Pulse Ox O2 Delivery O2 Flow Rate FiO2 12/28/17 10:00 98 12/28/17 09:00 98.6 103 18 124/81 (95) 100 12/28/17 08:00 98.6 141 24 165/101 (122) 98 12/28/17 08:00 140 12/28/17 06:00 111 12/28/17 04:00 120 12/28/17 04:00 98.1 114 22 167/86 (113) 99 12/28/17 02:00 104 12/28/17 00:00 97.9 100 22 134/78 (96) 100 12/28/17 00:00 100 12/27/17 22:00 100 12/27/17 20:00 109 12/27/17 20:00 98.0 110 24 156/90 (112) 100 12/27/17 18:00 97 12/27/17 16:00 106 12/27/17 16:00 98.6 106 26 134/81 (98) 98 12/27/17 14:00 90 12/27/17 12:00 99.0 73 16 106/68 (81) 99 12/27/17 12:00 73 (Amparo Longoria) Review of Systems ROS Limitations: Speech Impaired (Amparo Longoria) Physical Exam General: mildly restless in bed, confused HEENT: Normocephalic. Nonicteric sclera. No nasal or otic drainage. Surgical wounds are healing well, clean and dry without evidence of infection. Neuro: Awake, aphasic. not following commands. Cranial nerve examination: pupils 3 mm equal. Neck is soft and supple. Musculoskeletal:moves all four extremities, attempting to sit up in chair. on soft restraints Sensory examination: localizes to pain stimuli Heart: regular rate, rhythm Resp: clear, Skin: warm, dry, no cyanosis or erythema (Amparo Longoria) Medications Current Medications Current Medications Medications (Trade) Dose Ordered Sig/Ole Route PRN Reason Start Time Stop Time Status Last Admin Dose Admin Sodium Chloride 1,000 ml @ 75 mls/hr [id number] IV 12/21/17 11:54 12/28/17 07:28 Ondansetron HCl (Zofran Inj) 4 mg Q6H PRN IV PUSH NAUSEA OR VOMITING 12/21/17 12:00 Albuterol/ Ipratropium (Duoneb Neb) 1 ampule Q4HR NEB PRN INH WHEEZING 12/21/17 12:00 Miscellaneous Information 1 Q361D XX 12/21/17 12:00 12/21/17 12:00 Chlorhexidine Gluconate (Chlorhexidine 2% Cloth) Taper DAILY@04 TOP 12/22/17 04:00 12/18/18 03:59 12/28/17 04:00 Chlorhexidine Gluconate (Chlorhexidine 2% Cloth) 3 pack UNSCH PRN TOP HYGIENIC CARE 12/21/17 12:00 Senna/Docusate Sodium (Rossana-Colace) 1 tab BID PO 12/21/17 21:00 12/27/17 20:50 Magnesium Hydroxide (Milk Of Magnesia Liq) 30 ml Q12H PRN PO Mild constipation 12/21/17 12:00 Sennosides (Senokot) 17.2 mg Q12H PRN PO Moderate constipation 12/21/17 12:00 Bisacodyl (Dulcolax Supp) 10 mg DAILY PRN RECTAL SEVERE CONSITIPATION 12/21/17 12:00 Lactulose (Lactulose Liq) 30 ml DAILY PRN PO SEVERE CONSITIPATION 12/21/17 12:00 Lactulose (Lactulose Liq) 30 ml DAILY PO 12/22/17 09:00 12/26/17 12:19 Levetriacetam 500 mg/Sodium Chloride 105 ml @ 420 mls/hr Q12HR IV 12/21/17 21:00 12/28/17 08:37 Rifaximin (Xifaxan) 550 mg BID PO 12/21/17 21:00 12/28/17 08:38 Atorvastatin Calcium (Lipitor) 40 mg HS PO 12/21/17 21:00 12/27/17 20:50 Metoprolol Tartrate (Lopressor) 25 mg Q12HR PO 12/21/17 21:00 12/28/17 08:38 Flumazenil (Romazicon Inj) 0.2 mg Q1M PRN IV PUSH SEE LABEL COMMENTS 12/22/17 16:00 Lorazepam (Ativan) 1 mg Q4H PRN PO CIWA 8 - 10 12/22/17 16:00 Lorazepam (Ativan Inj) 1 mg Q4H PRN IV PUSH CIWA 8 - 10 12/22/17 16:00 12/27/17 20:51 Lorazepam (Ativan) 2 mg Q2H PRN PO CIWA 11-14 12/22/17 16:00 12/24/17 20:44 Lorazepam (Ativan Inj) 2 mg Q2H PRN IV PUSH CIWA 11-14 12/22/17 16:00 12/25/17 10:30 Lorazepam (Ativan Inj) 2 mg Q1H PRN IV PUSH CIWA 15-20 12/22/17 16:00 12/26/17 21:29 Lorazepam (Ativan Inj) 2 mg Q15M PRN IV PUSH CIWA > 20 12/22/17 16:00 12/22/17 23:08 Potassium Chloride 100 ml @ 50 mls/hr Q2H PRN IV For Potassium 2.8 - 3.2 mEq/L 12/22/17 16:00 12/27/17 07:52 Potassium Chloride 100 ml @ 50 mls/hr Q2H PRN IV For Potassium 2.8 - 3.2 mEq/L 12/22/17 16:00 12/26/17 20:14 Potassium Bicarb/ Potassium Chloride (K-Lyte Cl Eff) 50 meq UNSCH PRN PO For Potassium 3.3 - 3.5 mEq/L 12/22/17 16:00 12/22/17 16:36 Potassium Chloride 100 ml @ 25 mls/hr UNSCH PRN IV For Potassium 3.3 - 3.5 mEq/L 12/22/17 16:00 Potassium Chloride 100 ml @ 50 mls/hr Q2H PRN IV For Potassium 3.3 - 3.5 mEq/L 12/22/17 16:00 Magnesium Sulfate 4 gm/Sodium Chloride 100 ml @ 50 mls/hr UNSCH PRN IV For Magnesium 0.9 - 1.1 mg/dL 12/22/17 16:00 Magnesium Oxide (Mag-Ox) 800 mg UNSCH PRN PO For Magnesium 1.2 - 1.6 mg/dL 12/22/17 16:00 Magnesium Sulfate 2 gm/Sodium Chloride 100 ml @ 50 mls/hr UNSCH PRN IV For Magnesium 1.2 - 1.6 mg/dL 12/22/17 16:00 Potassium Phosphate (K-Phos) 2,000 mg Q4H PRN PO For Phosphorus < 2.5 mg/dL 12/22/17 16:00 Sodium Phosphate 30 mmol/Sodium Chloride 250 ml @ 42 mls/hr UNSCH PRN IV For Phosphorus < 2.5 mg/dL 12/22/17 16:00 Potassium Phosphate (K-Phos) 2,000 mg UNSCH PRN PO/TUBE SEE LABEL COMMENTS 12/22/17 16:00 Potassium Phosphate 30 mmol/ Sodium Chloride 260 ml @ 42 mls/hr UNSCH PRN IV SEE LABEL COMMENTS 12/22/17 16:00 Ziprasidone (Geodon Inj) 20 mg Q12H PRN IM SEVERE AGITATION 12/25/17 10:00 12/25/17 09:46 Enalaprilat (Vasotec Inj) 2.5 mg Q4H PRN IV PUSH SBP > 160 12/25/17 11:00 12/28/17 06:56 Famotidine (Pepcid) 20 mg BID PO 12/26/17 21:00 12/28/17 08:38 Nifedipine (Procardia Xl) 30 mg DAILY PO 12/27/17 09:00 12/28/17 08:38 Quetiapine Fumarate (SEROquel) 50 mg HS PO 12/28/17 21:00 (Amparo Longoria) Medical Decision Making MDM Remarks 71 y/o male s/p bilateral frontal nichol hole for evacuation of subdural hygroma , improved per f/u CT Brain chronic aphasia with 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 I reviewed and agree with the findings presented. I attest that I had a [id number] encounter with the patient on the same day, and personally performed and documented my assessment and findings in the medical record. (Lewis Mae MD) Amparo Longoria Dec 28, 2017 11:05 Lewis Mae MD Dec 30, 2017 19:58
[2017-12-28] MEDS: DEXMEDETOMIDINE 200 MCG in NS 48 ML IV PRN ×2 (18:20→21:00)
--- NOTE | 2017-12-28 18:53 | HHI.PR ---
Subjective Remarks Follow up for SDH s/p drainage. Patient is somewhat agitated and confused. Trying to get out of the bed. He tolerated some food. No fever, chills. Objective Vitals Vital Signs Date Time Temp Pulse Resp B/P (MAP) Pulse Ox O2 Delivery O2 Flow Rate FiO2 12/28/17 18:00 130 12/28/17 16:00 135 12/28/17 16:00 97.8 142 19 146/75 (98) 100 12/28/17 14:00 114 12/28/17 12:00 101 12/28/17 12:00 98.1 107 19 121/77 (92) 100 12/28/17 10:00 98 12/28/17 09:00 98.6 103 18 124/81 (95) 100 12/28/17 08:00 98.6 141 24 165/101 (122) 98 12/28/17 08:00 140 12/28/17 06:00 111 12/28/17 04:00 120 12/28/17 04:00 98.1 114 22 167/86 (113) 99 12/28/17 02:00 104 12/28/17 00:00 97.9 100 22 134/78 (96) 100 12/28/17 00:00 100 12/27/17 22:00 100 12/27/17 20:00 109 12/27/17 20:00 98.0 110 24 156/90 (112) 100 I/O 12/27/17 12/27/17 12/27/17 12/28/17 12/28/17 12/28/17 07:00 15:00 23:00 07:00 15:00 23:00 Intake Total 422 ml 120 ml 240 ml Output Total 650 ml 2000 ml 1400 ml Balance -228 ml -1880 ml -1160 ml Intake Oral 320 ml 120 ml 240 ml IV Total 102 ml Output Urine Total 650 ml 2000 ml 1400 ml # Bowel Movements 1 1 1 1 Result Diagram: 12/28/17 0643 Objective Remarks GENERAL: Alert, NAD. SKIN: Warm and dry. HEAD: Normocephalic. EYES: No scleral icterus. No injection or drainage. NECK: Supple, trachea midline. No JVD or lymphadenopathy. CARDIOVASCULAR: Regular rate and rhythm without murmurs, gallops, or rubs. RESPIRATORY: Breath sounds equal bilaterally. No accessory muscle use. GASTROINTESTINAL: Abdomen soft, non-tender, nondistended. MUSCULOSKELETAL: No cyanosis, or edema. BACK: Nontender without obvious deformity. No CVA tenderness. Procedures 12/21/2017 Right frontal nichol border hole with evacuation or subdural hematoma Left frontal nichol border hole with evacuation or subdural hematoma A/P Problem List: (1) Bilateral subdural hematomas ICD Code: S06.5X9A - Traumatic subdural hemorrhage with loss of consciousness of unspecified duration, initial encounter (2) HTN (hypertension) ICD Code: I10 - Essential (primary) hypertension Assessment and Plan Mr. East is a 71-year-old -[place] gentleman who originally presented to [facility] emergency department with altered mental status and confusion. He has chronic expressive aphasia and right-sided deficit from a previous stroke. CT scan indicated large bilateral subdural fluid collection. Subsequently after consulting with neurosurgeon patient was brought to [facility] and underwent emergent decompressive surgery for subdural hematoma. He was managed in the ICU. He was given [facility] protocol for alcohol abuse. His care was transferred to hospitalist service on 12/26/2017. Large bilateral subdural hematoma History of previous stroke Status post bilateral frontal bar border hole with evacuation of subdural hematoma. Drains are discontinued by neurosurgery. Neurosurgery continues to follow this patient. Continue Lipitor 40 mg nightly. Alcohol withdrawal Agitation Patient is currently on [facility] protocol d/c precedex. Seroquel 50 mg QHS per neurosurgery. Hypertension Nifedipine 30 mg daily with holding parameters. Metoprolol 25mg BID with holding parameters. Hypokalemia Potassium 3.2. Will replace with PO KCL. Full code. SCDs. Patient's son wants him to go to a rehab in [place]. Speech recommends Pureed diet with thin liquids. Christiano Zheng DO Dec 28, 2017 18:53
[2017-12-28] MEDS: ATORVASTATIN 40 MG TAB PO SCH (20:30)
[2017-12-28] MEDS: POTASSIUM CHLORIDE 20 MEQ CONTROLLED RELEASE TAB PO SCH (20:31)
[2017-12-29] VITALS (12 sets, daily range): BP systolic 113–152; BP diastolic 72–91; PULSE 55–117; RESP 14–19; TEMP 96.3–99.7; O2SAT 99–100
[2017-12-29] MEDS: DEXMEDETOMIDINE 200 MCG in NS 48 ML IV PRN (02:05)
[2017-12-29] MEDS: CHLORHEXIDINE GLUCONATE 2 % 1 PACK (2 CLOTHS) TOP SCH (04:00)
[2017-12-29] MEDS: RIFAXIMIN 550 MG TAB PO SCH ×2 (08:31→20:53)
[2017-12-29] MEDS: FAMOTIDINE 20 MG TAB PO SCH ×2 (08:31→20:53)
[2017-12-29] MEDS: LACTULOSE SYRUP 20 GM/30 ML CUP PO SCH (08:32)
[2017-12-29] MEDS: POTASSIUM CHLORIDE 20 MEQ CONTROLLED RELEASE TAB PO SCH ×2 (08:32→20:53)
[2017-12-29] MEDS: levETIRAcetam INJ 500 MG in SODIUM CHLORIDE 0.9% INJ 100 ML IV SCH ×2 (08:32→20:53)
[2017-12-29] MEDS: DOCUSATE SODIUM 50 MG/SENNA 8.6 MG TAB PO SCH ×2 (08:32→20:53)
[2017-12-29] MEDS: SODIUM CHLOR 0.9% 1000 ML INJ 1,000 ML IV SCH ×2 (08:33→18:58)
[2017-12-29] MEDS: METOPROLOL TARTRATE 25 MG TAB PO SCH ×2 (09:00→20:53)
[2017-12-29] MEDS: NIFEdipine 30 MG SUSTAINED RELEASE TAB PO SCH (09:00)
--- NOTE | 2017-12-29 14:12 | HHI.PR ---
Subjective Remarks Follow up for SDH s/p drainage. Patient is currently resting in bed. He becomes somewhat hypothermic and now has gudelia hugger and temp is slowly improving. Overnight required some Precedex due to agitation. Objective Vitals Vital Signs Date Time Temp Pulse Resp B/P (MAP) Pulse Ox O2 Delivery O2 Flow Rate FiO2 12/29/17 12:00 96.3 63 16 114/75 (88) 99 12/29/17 12:00 63 12/29/17 10:00 61 12/29/17 08:00 76 12/29/17 08:00 72 15 120/75 (90) 100 12/29/17 06:00 55 12/29/17 04:00 56 12/29/17 04:00 97.8 56 14 113/72 (86) 100 12/29/17 02:00 61 12/29/17 00:00 97.5 64 15 123/78 (93) 99 12/29/17 00:00 64 12/28/17 22:00 76 12/28/17 20:00 110 12/28/17 20:00 98.3 110 24 116/73 (87) 99 12/28/17 18:00 130 12/28/17 16:00 135 12/28/17 16:00 97.8 142 19 146/75 (98) 100 I/O 12/28/17 12/28/17 12/28/17 12/29/17 12/29/17 12/29/17 07:00 15:00 23:00 07:00 15:00 23:00 Intake Total 240 ml 560 ml 100 ml Output Total 1400 ml 975 ml 1550 ml Balance -1160 ml -415 ml -1450 ml Intake Oral 240 ml 360 ml IV Total 200 ml 100 ml Output Urine Total 1400 ml 975 ml 1550 ml # Bowel Movements 1 0 0 Result Diagram: 12/28/17 0643 Objective Remarks GENERAL: Alert, NAD. SKIN: Warm and dry. HEAD: Normocephalic. EYES: No scleral icterus. No injection or drainage. NECK: Supple, trachea midline. No JVD or lymphadenopathy. CARDIOVASCULAR: Regular rate and rhythm without murmurs, gallops, or rubs. RESPIRATORY: Breath sounds equal bilaterally. No accessory muscle use. GASTROINTESTINAL: Abdomen soft, non-tender, nondistended. MUSCULOSKELETAL: No cyanosis, or edema. BACK: Nontender without obvious deformity. No CVA tenderness. Procedures 12/21/2017 Right frontal nichol border hole with evacuation or subdural hematoma Left frontal nichol border hole with evacuation or subdural hematoma A/P Problem List: (1) Bilateral subdural hematomas ICD Code: S06.5X9A - Traumatic subdural hemorrhage with loss of consciousness of unspecified duration, initial encounter (2) HTN (hypertension) ICD Code: I10 - Essential (primary) hypertension Assessment and Plan Mr. East is a 71-year-old -[place] gentleman who originally presented to [facility] emergency department with altered mental status and confusion. He has chronic expressive aphasia and right-sided deficit from a previous stroke. CT scan indicated large bilateral subdural fluid collection. Subsequently after consulting with neurosurgeon patient was brought to [facility] and underwent emergent decompressive surgery for subdural hematoma. He was managed in the ICU. He was given [facility] protocol for alcohol abuse. His care was transferred to hospitalist service on 12/26/2017. Large bilateral subdural hematoma History of previous stroke Status post bilateral frontal bar border hole with evacuation of subdural hematoma. Drains are discontinued by neurosurgery. Neurosurgery following. Continue Lipitor 40 mg nightly. Alcohol withdrawal Agitation Patient is currently on CIPR protocol d/c precedex. Seroquel 50 mg QHS per neurosurgery. Add Seroquel 25 mg every morning Hypertension Nifedipine 30 mg daily with holding parameters. Metoprolol 25mg BID with holding parameters. Hypokalemia Potassium 3.2. Continue with PO KCL. Mild hypothermia - currently on Gudelia hugger. Temp is normalizing. Full code. SCDs. Patient's son wants him to go to a rehab in [place]. Speech recommends Pureed diet with thin liquids. Christiano Zheng DO Dec 29, 2017 2:12 pm
--- NOTE | 2017-12-29 15:46 | HHI.NSPN ---
(Amparo Longoria) Note Status Status: Progress Note (Amparo Longoria) Interval History Interval History Mr. East is a 71 year old male who presented to [place] as a transfer from [facility] for evaluation of subdural hematoma. History cannot be obtained from the patient and no family at bedside thus history obtained from the patient's chart. Mr. Oquendo has a history of chronic aphasia and right side weakness from a prior stroke. He also has a history of chronic etoh abuse. He presented to [place] ED with confusion and AMS. A CT Brain had shown large bilateral subdural fluid collections with mass effect of the brain. A neurosurgical evaluation was requested for surgical decompression. 12/22: doing well, appears much more awake, talking but speech is confused, not really following commands, smiling and very pleasant. bilateral subdural drains in place 12/26: Currently mildly sedated on Precedex due to mild agitation and restlessness. His subdural drains were removed over the weekend. Otherwise nurse reports no significant overall changes to neuro checks. Chronic aphasia. 12/27: patient seen and examined this am during rounds. received multiple doses of Ativan last night for agitation, currently also on Precedex drip. Currently appearing comatose due to heavy sedatives. Hypotensive with 77 systolic bp. 12/28: more awake today, confused, baseline aphasic, moves all four ext. Restless and agitated overnight. 12/29: currently sedated on precedex due to agitation and restlessness (Amparo Longoria) Labs, Micro, & Vital Signs Results Date Time Temp Pulse Resp B/P (MAP) Pulse Ox O2 Delivery O2 Flow Rate FiO2 12/29/17 14:00 117 12/29/17 12:00 96.3 63 16 114/75 (88) 99 12/29/17 12:00 63 12/29/17 10:00 61 12/29/17 08:00 76 12/29/17 08:00 72 15 120/75 (90) 100 12/29/17 06:00 55 12/29/17 04:00 56 12/29/17 04:00 97.8 56 14 113/72 (86) 100 12/29/17 02:00 61 12/29/17 00:00 97.5 64 15 123/78 (93) 99 12/29/17 00:00 64 12/28/17 22:00 76 12/28/17 20:00 110 12/28/17 20:00 98.3 110 24 116/73 (87) 99 12/28/17 18:00 130 12/28/17 16:00 135 12/28/17 16:00 97.8 142 19 146/75 (98) 100 Constitutional Vital Signs Date Time Temp Pulse Resp B/P (MAP) Pulse Ox O2 Delivery O2 Flow Rate FiO2 12/29/17 14:00 117 12/29/17 12:00 96.3 63 16 114/75 (88) 99 12/29/17 12:00 63 12/29/17 10:00 61 12/29/17 08:00 76 12/29/17 08:00 72 15 120/75 (90) 100 12/29/17 06:00 55 12/29/17 04:00 56 12/29/17 04:00 97.8 56 14 113/72 (86) 100 12/29/17 02:00 61 12/29/17 00:00 97.5 64 15 123/78 (93) 99 12/29/17 00:00 64 12/28/17 22:00 76 12/28/17 20:00 110 12/28/17 20:00 98.3 110 24 116/73 (87) 99 12/28/17 18:00 130 12/28/17 16:00 135 12/28/17 16:00 97.8 142 19 146/75 (98) 100 (Amparo Longoria) Physical Exam General: sedated on precedex HEENT: Normocephalic. Nonicteric sclera. No nasal or otic drainage. Surgical wounds are healing well, clean and dry without evidence of infection. Neuro: Awake, aphasic. not following commands. Cranial nerve examination: pupils 3 mm equal. Neck is soft and supple. Musculoskeletal:moves all four extremities, attempting to sit up in chair. on soft restraints Sensory examination: localizes to pain stimuli Heart: regular rate, rhythm Resp: clear, Skin: warm, dry, no cyanosis or erythema (Amparo Longoria) Medications Current Medications Current Medications Medications (Trade) Dose Ordered Sig/Ole Route PRN Reason Start Time Stop Time Status Last Admin Dose Admin Sodium Chloride 1,000 ml @ 75 mls/hr [id number] IV 12/21/17 11:54 12/28/17 07:28 Ondansetron HCl (Zofran Inj) 4 mg Q6H PRN IV PUSH NAUSEA OR VOMITING 12/21/17 12:00 Albuterol/ Ipratropium (Duoneb Neb) 1 ampule Q4HR NEB PRN INH WHEEZING 12/21/17 12:00 Miscellaneous Information 1 [id number] XX 12/21/17 12:00 12/21/17 12:00 Chlorhexidine Gluconate (Chlorhexidine 2% Cloth) Taper DAILY@04 TOP 12/22/17 04:00 12/18/18 03:59 12/28/17 04:00 Chlorhexidine Gluconate (Chlorhexidine 2% Cloth) 3 pack UNSCH PRN TOP HYGIENIC CARE 12/21/17 12:00 Senna/Docusate Sodium (Rossana-Colace) 1 tab BID PO 12/21/17 21:00 12/29/17 08:32 Magnesium Hydroxide (Milk Of Magnesia Liq) 30 ml Q12H PRN PO Mild constipation 12/21/17 12:00 Sennosides (Senokot) 17.2 mg Q12H PRN PO Moderate constipation 12/21/17 12:00 Bisacodyl (Dulcolax Supp) 10 mg DAILY PRN RECTAL SEVERE CONSITIPATION 12/21/17 12:00 Lactulose (Lactulose Liq) 30 ml DAILY PRN PO SEVERE CONSITIPATION 12/21/17 12:00 Lactulose (Lactulose Liq) 30 ml DAILY PO 12/22/17 09:00 12/26/17 12:19 Levetriacetam 500 mg/Sodium Chloride 105 ml @ 420 mls/hr Q12HR IV 12/21/17 21:00 12/29/17 08:32 Rifaximin (Xifaxan) 550 mg BID PO 12/21/17 21:00 12/29/17 08:31 Atorvastatin Calcium (Lipitor) 40 mg HS PO 12/21/17 21:00 12/28/17 20:30 Metoprolol Tartrate (Lopressor) 25 mg Q12HR PO 12/21/17 21:00 12/28/17 20:30 Flumazenil (Romazicon Inj) 0.2 mg Q1M PRN IV PUSH SEE LABEL COMMENTS 12/22/17 16:00 Lorazepam (Ativan) 1 mg Q4H PRN PO CIWA 8 - 10 12/22/17 16:00 Lorazepam (Ativan Inj) 1 mg Q4H PRN IV PUSH CIWA 8 - 10 12/22/17 16:00 12/27/17 20:51 Lorazepam (Ativan) 2 mg Q2H PRN PO CIWA 11-14 12/22/17 16:00 12/24/17 20:44 Lorazepam (Ativan Inj) 2 mg Q2H PRN IV PUSH CIWA 11-14 12/22/17 16:00 12/25/17 10:30 Lorazepam (Ativan Inj) 2 mg Q1H PRN IV PUSH CIWA 15-20 12/22/17 16:00 12/26/17 21:29 Lorazepam (Ativan Inj) 2 mg Q15M PRN IV PUSH CIWA > 20 12/22/17 16:00 12/22/17 23:08 Potassium Chloride 100 ml @ 50 mls/hr Q2H PRN IV For Potassium 2.8 - 3.2 mEq/L 12/22/17 16:00 12/27/17 07:52 Potassium Chloride 100 ml @ 50 mls/hr Q2H PRN IV For Potassium 2.8 - 3.2 mEq/L 12/22/17 16:00 12/26/17 20:14 Potassium Bicarb/ Potassium Chloride (K-Lyte Cl Eff) 50 meq UNSCH PRN PO For Potassium 3.3 - 3.5 mEq/L 12/22/17 16:00 12/22/17 16:36 Potassium Chloride 100 ml @ 25 mls/hr UNSCH PRN IV For Potassium 3.3 - 3.5 mEq/L 12/22/17 16:00 Potassium Chloride 100 ml @ 50 mls/hr Q2H PRN IV For Potassium 3.3 - 3.5 mEq/L 12/22/17 16:00 Magnesium Sulfate 4 gm/Sodium Chloride 100 ml @ 50 mls/hr UNSCH PRN IV For Magnesium 0.9 - 1.1 mg/dL 12/22/17 16:00 Magnesium Oxide (Mag-Ox) 800 mg UNSCH PRN PO For Magnesium 1.2 - 1.6 mg/dL 12/22/17 16:00 Magnesium Sulfate 2 gm/Sodium Chloride 100 ml @ 50 mls/hr UNSCH PRN IV For Magnesium 1.2 - 1.6 mg/dL 12/22/17 16:00 Potassium Phosphate (K-Phos) 2,000 mg Q4H PRN PO For Phosphorus < 2.5 mg/dL 12/22/17 16:00 Sodium Phosphate 30 mmol/Sodium Chloride 250 ml @ 42 mls/hr UNSCH PRN IV For Phosphorus < 2.5 mg/dL 12/22/17 16:00 Potassium Phosphate (K-Phos) 2,000 mg UNSCH PRN PO/TUBE SEE LABEL COMMENTS 12/22/17 16:00 Potassium Phosphate 30 mmol/ Sodium Chloride 260 ml @ 42 mls/hr UNSCH PRN IV SEE LABEL COMMENTS 12/22/17 16:00 Ziprasidone (Geodon Inj) 20 mg Q12H PRN IM SEVERE AGITATION 12/25/17 10:00 12/25/17 09:46 Enalaprilat (Vasotec Inj) 2.5 mg Q4H PRN IV PUSH SBP > 160 12/25/17 11:00 12/28/17 06:56 Famotidine (Pepcid) 20 mg BID PO 12/26/17 21:00 12/29/17 08:31 Nifedipine (Procardia Xl) 30 mg DAILY PO 12/27/17 09:00 12/28/17 08:38 Quetiapine Fumarate (SEROquel) 50 mg HS PO 12/28/17 21:00 12/28/17 20:30 Potassium Chloride (KCl) 20 meq Q12HR PO 12/28/17 21:00 12/31/17 20:59 12/29/17 08:32 Quetiapine Fumarate (SEROquel) 25 mg DAILY PO 12/30/17 09:00 (Amparo Longoria) Medical Decision Making MDM Remarks 71 y/o male s/p bilateral frontal nichol hole for evacuation of subdural hygroma , improved per f/u CT Brain chronic aphasia with chronic right hemiparesis from old CVA (Amparo Longoria) Plan Plan Remarks recommend to avoid heavy sedatives, cont medical management cont neuro checks therapy and rehab efforts dev dc 01/04/18 (Amparo Longoria) Attending Statement The exam, history, and the medical decision-making described in the above note were completed with the assistance of the mid-level provider. I reviewed and agree with the findings presented. I attest that I had a [id number] encounter with the patient on the same day, and personally performed and documented my assessment and findings in the medical record. (Lewis Mae MD) Amparo Longoria Dec 29, 2017 15:46 Lewis Mae MD Dec 30, 2017 20:02
[2017-12-29] MEDS: ATORVASTATIN 40 MG TAB PO SCH (20:53)
[2017-12-29] MEDS: QUEtiapine FUMARATE 25 MG TAB PO SCH (20:53)
[2017-12-30] VITALS (13 sets, daily range): BP systolic 102–175; BP diastolic 62–97; PULSE 88–128; RESP 16–25; TEMP 99.1–101.5; O2SAT 97–100
[2017-12-30] MEDS: CHLORHEXIDINE GLUCONATE 2 % 1 PACK (2 CLOTHS) TOP SCH (04:00)
[2017-12-30] MEDS: ENALAPRILAT 2.5 MG/2 ML VIAL IV PUSH PRN (04:10)
[2017-12-30] MEDS: levETIRAcetam INJ 500 MG in SODIUM CHLORIDE 0.9% INJ 100 ML IV SCH ×2 (08:07→20:06)
[2017-12-30] MEDS: QUEtiapine FUMARATE 25 MG TAB PO SCH ×2 (08:07→20:07)
[2017-12-30] MEDS: POTASSIUM CHLORIDE 20 MEQ CONTROLLED RELEASE TAB PO SCH ×2 (08:07→20:06)
[2017-12-30] MEDS: RIFAXIMIN 550 MG TAB PO SCH ×2 (08:07→20:06)
[2017-12-30] MEDS: FAMOTIDINE 20 MG TAB PO SCH ×2 (08:07→20:06)
[2017-12-30] MEDS: METOPROLOL TARTRATE 25 MG TAB PO SCH ×2 (08:07→20:06)
[2017-12-30] MEDS: NIFEdipine 30 MG SUSTAINED RELEASE TAB PO SCH (08:08)
[2017-12-30] MEDS: DOCUSATE SODIUM 50 MG/SENNA 8.6 MG TAB PO SCH ×2 (08:08→20:07)
[2017-12-30] MEDS: LACTULOSE SYRUP 20 GM/30 ML CUP PO SCH (08:08)
--- NOTE | 2017-12-30 10:50 | HHI.PR ---
Subjective Remarks 12-29 Follow up for SDH s/p drainage. Patient is currently resting in bed. He becomes somewhat hypothermic and now has gudelia hugger and temp is slowly improving. Overnight required some Precedex due to agitation. 3- OFF PRECEDEX BUT STILL IN 4 POINT RESTRAINTS NEEDS SAFE PLACEMENT IS APHASIC WILL NEED SNF VS [facility] DUE TO RISK OF [place]ALLS CASE MANAGEMENT FOR HELP WITH PLACEMENT SNF/[facility]/BACK TO [place]?? Objective Vitals Vital Signs Date Time Temp Pulse Resp B/P (MAP) Pulse Ox O2 Delivery O2 Flow Rate FiO2 12/30/17 06:00 94 12/30/17 04:00 99.7 98 16 175/94 (121) 98 12/30/17 04:00 98 12/30/17 02:00 91 12/30/17 00:00 88 12/30/17 00:00 99.5 88 20 155/87 (109) 100 12/29/17 22:00 101 12/29/17 20:00 94 12/29/17 20:00 99.3 94 19 152/91 (111) 100 12/29/17 18:00 98 12/29/17 16:00 99.7 98 16 146/80 (102) 100 12/29/17 16:00 101 12/29/17 14:00 117 12/29/17 12:00 96.3 63 16 114/75 (88) 99 12/29/17 12:00 63 I/O 12/29/17 12/29/17 12/29/17 12/30/17 12/30/17 12/30/17 07:00 15:00 23:00 07:00 15:00 23:00 Intake Total 100 ml 98 ml 280 ml Output Total 1550 ml 500 ml 625 ml Balance -1450 ml 98 ml -220 ml -625 ml Intake Oral 280 ml IV Total 100 ml 98 ml Output Urine Total 1550 ml 500 ml 625 ml # Voids 2 1 # Bowel Movements 0 0 2 Result Diagram: 12/28/17 0643 Other Results Laboratory Tests Test 12/28/17 06:43 Potassium Level 3.2 MEQ/L Imaging Last Impressions Head CT 12/24/17 0600 Signed Impressions: Service Date/Time: Sunday, December 24, 2017 02:02 - CONCLUSION: 1. Interval placement of bilateral subdural drainage catheters with decrease in the size of the bilateral subdural collections. 2. New area of acute high-density hemorrhage over the right frontal lobe measuring up to 1.4 cm. the subdural in this region measured up to 1.4 cm with a lower density collection on the prior study. Martin Jarrett MD Objective Remarks GENERAL: Awake and alert not so oriented due to aphasia did not know which hospital he was in moves all 4 extremities currently in soft restraints for his protection SKIN: Warm and dry. HEAD: Atraumatic. Normocephalic. Has dev on bilateral temporal areas EYES: Pupils equal and round. No scleral icterus. No injection or drainage. Extraocular muscles appear grossly intact ENT: No nasal bleeding or discharge. Mucous membranes pink and moist. Tongue is midline NECK: Trachea midline. No JVD. Supple CARDIOVASCULAR: Regular rate and rhythm. S1-S2 no S3 or S4 RESPIRATORY: No accessory muscle use. Clear to auscultation. Breath sounds equal bilaterally. GASTROINTESTINAL: Abdomen soft, non-tender, nondistended. Hepatic and splenic margins not palpable. MUSCULOSKELETAL: Extremities without clubbing, cyanosis, or edema. No obvious deformities. NEUROLOGICAL: Awake and alert. No obvious cranial nerve deficits. Motor grossly within normal limits. 4 out of 5 muscle strength in the arms and legs. Aphasic speech. PSYCHIATRIC: INAppropriate mood and affect; insight and judgment ABnormal. Procedures 12/21/2017 Right frontal nichol border hole with evacuation or subdural hematoma Left frontal nichol border hole with evacuation or subdural hematoma Medications and IVs Current Medications Sodium Chloride 1,000 ml @ 75 mls/hr [id number] IV Last administered on at 18:58; Start 12/21/17 at 11:54 Famotidine (Pepcid Inj) 20 mg Q12HR IV PUSH Last administered on 12/26/17at 12: 18; Start 12/21/17 at 12:00; Stop 12/26/17 at 13:04; Status DC Ondansetron HCl (Zofran Inj) 4 mg Q6H PRN IV PUSH NAUSEA OR VOMITING; Start at 12:00 Albuterol/ Ipratropium (Duoneb Neb) 1 ampule Q4HR NEB PRN INH WHEEZING; Start 12/21/17 at 12:00 Miscellaneous Information 1 [id number] XX Last administered on 12/21/17at 12:00; Start 12/21/17 at 12:00 Chlorhexidine Gluconate (Chlorhexidine 2% Cloth) Taper DAILY@04 TOP Last administered on 12/28/17at 04:00; Start 12/22/17 at 04:00; Stop 12/18/18 at 03:59 Chlorhexidine Gluconate (Chlorhexidine 2% Cloth) 3 pack UNSCH PRN TOP HYGIENIC CARE; Start 12/21/17 at 12:00 Senna/Docusate Sodium (Rossana-Colace) 1 tab BID PO Last administered on at 20:53; Start 12/21/17 at 21:00 Magnesium Hydroxide (Milk Of Magnesia Liq) 30 ml Q12H PRN PO Mild constipation ; Start 12/21/17 at 12:00 Sennosides (Senokot) 17.2 mg Q12H PRN PO Moderate constipation; Start 12/21/17 at 12:00 Bisacodyl (Dulcolax Supp) 10 mg DAILY PRN RECTAL SEVERE CONSITIPATION; Start at 12:00 Lactulose (Lactulose Liq) 30 ml DAILY PRN PO SEVERE CONSITIPATION; Start at 12:00 Lactulose (Lactulose Liq) 30 ml DAILY PO Last administered on 12/26/17at 12:19; Start 12/22/17 at 09:00 Levetriacetam 500 mg/Sodium Chloride 105 ml @ 420 mls/hr Q12HR IV Last administered on 12/30/17at 08:07; Start 12/21/17 at 21:00 Rifaximin (Xifaxan) 550 mg BID PO Last administered on 12/30/17at 08:07; Start 12/21/17 at 21:00 Atorvastatin Calcium (Lipitor) 40 mg HS PO Last administered on 12/29/17at 20:53 ; Start 12/21/17 at 21:00 Metoprolol Tartrate (Lopressor) 25 mg Q12HR PO Last administered on 12/30/17at 08:07; Start 12/21/17 at 21:00 Cefazolin Sodium (Ancef Inj) 2,000 mg STK-MED ONCE .ROUTE ; Start 12/21/17 at 12 :52; Stop 12/21/17 at 12:53; Status DC Thrombin (Thrombin Top Soln) 10,000 units STK-MED ONCE .ROUTE Last administered on 12/21/17 20:36; Start 12/21/17 at 12:52; Stop 12/21/17 at 12:53 ; Status DC Gelatin (Gelfoam 100 Top) 1 foam STK-MED ONCE .ROUTE Last administered on at 20:36; Start 12/21/17 at 12:52; Stop 12/21/17 at 12:53; Status DC Gentamicin Sulfate (Gentamicin Inj) 240 mg STK-MED ONCE .ROUTE ; Start 12/21/17 at 12:52; Stop 12/21/17 at 12:53; Status DC Sodium Chloride 250 ml @ As Directed STK-MED ONCE .ROUTE ; Start 12/21/17 at 12 :52; Stop 12/21/17 at 12:53; Status DC Vancomycin HCl (Vancomycin Inj) 1,000 mg STK-MED ONCE .ROUTE ; Start 12/21/17 at 12:54; Stop 12/21/17 at 12:55; Status DC Microfibriller Collagen Hemostat (Avitene Bandage) 1 bandage STK-MED ONCE .ROUTE Last administered on 12/21/17at 20:36; Start 12/21/17 at 15:19; Stop at 15:20; Status DC Lidocaine/ Epinephrine (Xylocaine-Epi 1%-1:100,000 Inj) 30 ml STK-MED ONCE .ROUTE Last administered on 12/21/17at 20:36; Start 12/21/17 at 15:19; Stop at 15:20; Status DC Dexamethasone Sodium Phosphate (Decadron Inj) 20 mg STK-MED ONCE .ROUTE ; Start 12/21/17 at 15:19; Stop 12/21/17 at 15:20; Status DC Cefazolin Sodium/ Dextrose 50 ml @ As Directed STK-MED ONCE .ROUTE Last administered on 12/21/17at 20:32; Start 12/21/17 at 20:30; Stop 12/21/17 at 20:31 ; Status DC Levetriacetam (Keppra Inj) 1,000 mg STK-MED ONCE IV Last administered on at 20:44; Start 12/21/17 at 20:39; Stop 12/21/17 at 20:40; Status DC Fentanyl Citrate (fentaNYL INJ) 200 mcg STK-MED ONCE .ROUTE ; Start 12/21/17 at 21:48; Stop 12/21/17 at 21:49; Status DC Sugammadex Sodium (Bridion Inj) 200 mg STK-MED ONCE IV PUSH ; Start 12/21/17 at 21:48; Stop 12/21/17 at 21:49; Status DC Miscellaneous Information ALL NURSING DEPARTME... UNSCH PRN .XX SEE LABEL COMMENTS; Start 12/21/17 at 22:00; Stop 12/22/17 at 21:59; Status DC Labetalol HCl (*TRANDATE INJ PERIprocedural Use ONLY) 100 mg STK-MED ONCE .ROUTE Last administered on 12/21/17at 22:12; Start 12/21/17 at 22:12; Stop at 22:13; Status DC Nicardipine HCl 25 mg/Sodium Chloride 250 ml @ 50 mls/hr TITRATE PRN IV Blood Pressure Management Last administered on 12/25/17at 06:55; Start 12/22/17 at 04: 00; Stop 12/27/17 at 16:39; Status DC Flumazenil (Romazicon Inj) 0.2 mg Q1M PRN IV PUSH SEE LABEL COMMENTS; Start at 16:00 Lorazepam (Ativan) 1 mg Q4H PRN PO CIWA 8 - 10; Start 12/22/17 at 16:00 Lorazepam (Ativan Inj) 1 mg Q4H PRN IV PUSH CIWA 8 - 10 Last administered on at 20:51; Start 12/22/17 at 16:00 Lorazepam (Ativan) 2 mg Q2H PRN PO CIWA 11-14 Last administered on 12/24/17at 20 :44; Start 12/22/17 at 16:00 Lorazepam (Ativan Inj) 2 mg Q2H PRN IV PUSH CIWA 11-14 Last administered on at 10:30; Start 12/22/17 at 16:00 Lorazepam (Ativan Inj) 2 mg Q1H PRN IV PUSH CIWA 15-20 Last administered on at 21:29; Start 12/22/17 at 16:00 Lorazepam (Ativan Inj) 2 mg Q15M PRN IV PUSH CIWA > 20 Last administered on at 23:08; Start 12/22/17 at 16:00 Potassium Chloride 100 ml @ 50 mls/hr Q2H PRN IV For Potassium 2.8 - 3.2 mEq/ L Last administered on 12/27/17at 07:52; Start 12/22/17 at 16:00 Potassium Chloride 100 ml @ 50 mls/hr Q2H PRN IV For Potassium 2.8 - 3.2 mEq/ L Last administered on 12/26/17at 20:14; Start 12/22/17 at 16:00 Potassium Bicarb/ Potassium Chloride (K-Lyte Cl Eff) 50 meq UNSCH PRN PO For Potassium 3.3 - 3.5 mEq/L Last administered on 12/22/17at 16:36; Start 12/22/17 at 16:00 Potassium Chloride 100 ml @ 25 mls/hr UNSCH PRN IV For Potassium 3.3 - 3.5 mEq /L; Start 12/22/17 at 16:00 Potassium Chloride 100 ml @ 50 mls/hr Q2H PRN IV For Potassium 3.3 - 3.5 mEq/L ; Start 12/22/17 at 16:00 Magnesium Sulfate 4 gm/Sodium Chloride 100 ml @ 50 mls/hr UNSCH PRN IV For Magnesium 0.9 - 1.1 mg/dL; Start 12/22/17 at 16:00 Magnesium Oxide (Mag-Ox) 800 mg UNSCH PRN PO For Magnesium 1.2 - 1.6 mg/dL; Start 12/22/17 at 16:00 Magnesium Sulfate 2 gm/Sodium Chloride 100 ml @ 50 mls/hr UNSCH PRN IV For Magnesium 1.2 - 1.6 mg/dL; Start 12/22/17 at 16:00 Potassium Phosphate (K-Phos) 2,000 mg Q4H PRN PO For Phosphorus < 2.5 mg/dL; Start 12/22/17 at 16:00 Sodium Phosphate 30 mmol/Sodium Chloride 250 ml @ 42 mls/hr UNSCH PRN IV For Phosphorus < 2.5 mg/dL; Start 12/22/17 at 16:00 Potassium Phosphate (K-Phos) 2,000 mg UNSCH PRN PO/TUBE SEE LABEL COMMENTS; Start 12/22/17 at 16:00 Potassium Phosphate 30 mmol/ Sodium Chloride 260 ml @ 42 mls/hr UNSCH PRN IV SEE LABEL COMMENTS; Start 12/22/17 at 16:00 Ziprasidone (Geodon Inj) 20 mg Q12H PRN IM SEVERE AGITATION Last administered on 12/25/17at 09:46; Start 12/25/17 at 10:00 Enalaprilat (Vasotec Inj) 2.5 mg Q4H PRN IV PUSH SBP > 160 Last administered on 12/30/17at 04:10; Start 12/25/17 at 11:00 Metoprolol Tartrate (Lopressor Inj) 5 mg STK-MED ONCE .ROUTE Last administered on 12/25/17at 11:17; Start 12/25/17 at 11:15; Stop 12/25/17 at 11:16; Status DC Metoprolol Tartrate (Lopressor Inj) 5 mg Q3H PRN IV PUSH Pulse rate > 130 Last administered on 12/25/17at 11:17; Start 12/25/17 at 12:15; Stop 12/25/17 at 12:46 ; Status DC Metoprolol Tartrate (Lopressor Inj) 5 mg Q1H PRN IV PUSH Pulse rate > 130 Last administered on 12/25/17at 13:15; Start 12/25/17 at 13:00; Stop 12/27/17 at 16:39 ; Status DC Dexmedetomidine HCl 200 mcg/ Sodium Chloride 52 ml @ 2.9 mls/hr TITRATE PRN IV SEDATION Last administered on 12/27/17at 06:55; Start 12/25/17 at 16:00; Stop 12/27/17 at 16:39; Status DC Famotidine (Pepcid) 20 mg BID PO Last administered on 12/30/17at 08:07; Start at 21:00 Nifedipine (Procardia Xl) 30 mg DAILY PO Last administered on 12/30/17at 08:08; Start 12/27/17 at 09:00 Nifedipine (Procardia Xl) 30 mg ONCE ONCE PO Last administered on 12/26/17at 16 :54; Start 12/26/17 at 15:45; Stop 12/26/17 at 16:05; Status DC Quetiapine Fumarate (SEROquel) 50 mg BID PO Last administered on 12/28/17at 08: 38; Start 12/26/17 at 21:00; Stop 12/28/17 at 09:37; Status DC Lidocaine HCl (Xylocaine-Mpf 1% Inj) 10 ml STK-MED ONCE OTHER ; Start 12/21/17 at 12:00; Stop 12/26/17 at 16:09; Status DC Rocuronium [place] (Zemuron Inj) 50 mg STK-MED ONCE IV PUSH ; Start 12/21/17 at 12:00; Stop 12/26/17 at 16:09; Status DC Phenylephrine HCl (Neosynephrine/ NS 1000 Mcg/10ml Syr) 1,000 mcg STK-MED ONCE IV ; Start 12/21/17 at 12:00; Stop 12/26/17 at 16:09; Status DC Ephedrine Sulfate (ePHEDrine/NS 25 MG/5 ML SYR) 25 mg STK-MED ONCE IV ; Start at 12:00; Stop 12/26/17 at 16:09; Status DC Metoprolol Tartrate (Lopressor Inj) 5 mg STK-MED ONCE IV ; Start 12/21/17 at 12: 00; Stop 12/26/17 at 16:09; Status DC Hydralazine HCl (Apresoline Inj) 20 mg STK-MED ONCE IV ; Start 12/21/17 at 12:00 ; Stop 12/26/17 at 16:09; Status DC Esmolol HCl (Brevibloc Bolus Inj) 100 mg STK-MED ONCE IV ; Start 12/21/17 at 12: 00; Stop 12/26/17 at 16:09; Status DC Dexamethasone Sodium Phosphate (Decadron Inj) 4 mg STK-MED ONCE IV ; Start 12/21 at 12:00; Stop 12/26/17 at 16:09; Status DC Ondansetron HCl (Zofran Inj) 4 mg STK-MED ONCE IV ; Start 12/21/17 at 12:00; Stop 12/26/17 at 16:09; Status DC Propofol (Diprivan 200 Mg/20 ml Inj) 200 mg STK-MED ONCE IV ; Start 12/21/17 at 12:00; Stop 12/26/17 at 16:09; Status DC Sodium Chloride (Sodium Chloride 0.9% Inj) 20 ml STK-MED ONCE IV ; Start at 12:00; Stop 12/26/17 at 16:09; Status DC Norepinephrine Bitartrate (Levophed Inj) 4 mg STK-MED ONCE .ROUTE Last administered on 12/27/17at 09:00; Start 12/27/17 at 09:15; Stop 12/27/17 at 09:16 ; Status DC Quetiapine Fumarate (SEROquel) 50 mg HS PO Last administered on 12/29/17at 20:53 ; Start 12/28/17 at 21:00 Dexmedetomidine HCl 200 mcg/ Sodium Chloride 50 ml @ 2.77 mls/hr TITRATE PRN IV Desired RASS Last administered on 12/29/17at 02:05; Start 12/28/17 at 18:30; Stop 12/29/17 at 12:10; Status DC Potassium Chloride (KCl) 20 meq Q12HR PO Last administered on 12/30/17at 08:07; Start 12/28/17 at 21:00; Stop 12/31/17 at 20:59 Quetiapine Fumarate (SEROquel) 25 mg DAILY PO Last administered on 12/30/17at 08 :07; Start 12/30/17 at 09:00 A/P Problem List: (1) Bilateral subdural hematomas ICD Code: S06.5X9A - Traumatic subdural hemorrhage with loss of consciousness of unspecified duration, initial encounter (2) HTN (hypertension) ICD Code: I10 - Essential (primary) hypertension Assessment and Plan Mr. East is a 71-year-old -[place] gentleman who originally presented to [facility] emergency department with altered mental status and confusion. He has chronic expressive aphasia and right-sided deficit from a previous stroke. CT scan indicated large bilateral subdural fluid collection. Subsequently after consulting with neurosurgeon patient was brought to [facility] and underwent emergent decompressive surgery for subdural hematoma. He was managed in the ICU. He was given [facility] protocol for alcohol abuse. His care was transferred to hospitalist service on 12/26/2017. Large bilateral subdural hematoma History of previous stroke Status post bilateral frontal NICHOL hole with evacuation of subdural hematoma. Drains are discontinued by neurosurgery. Neurosurgery following. Continue Lipitor 40 mg nightly. Alcohol withdrawal Agitation Patient is currently on [facility] protocol d/c precedex. Seroquel 50 mg QHS per neurosurgery. Add Seroquel 25 mg every morning Hypertension Nifedipine 30 mg daily with holding parameters. Metoprolol 25mg BID with holding parameters. Hypokalemia Potassium 3.2. Continue with PO KCL. Mild hypothermia - currently on Gudelia hugger. Temp is normalizing. -Off bear hugger Full code. SCDs. Patient's son wants him to go to a rehab in [place]. Speech recommends Pureed diet with thin liquids. Case management for placement at [facility] versus [facility] versus back to [facility] Discharge Planning Pending case management ability to find a safe place for discharge Jerman Kumar DO Dec 30, 2017 10:50
[2017-12-30] MEDS: SODIUM CHLOR 0.9% 1000 ML INJ 1,000 ML IV SCH (11:08)
[2017-12-30 14:20] LABS: AUTOMATED NEUTROPHIL # 13.2 TH/MM3 (1.8-7.7); BASOPHIL % 0.1 % (0.0-2.0); HEMATOCRIT 31.8 % (39.0-51.0); HEMOGLOBIN 10.4 GM/DL (13.0-17.0); LYMPH % 16.2 % (9.0-44.0); LYMPHOCYTE # 2.9 TH/MM3 (1.0-4.8); MEAN CELL VOLUME 90.4 FL (80.0-100.0); MEAN CORPUSCULAR HEMOGLOBIN 29.6 PG (27.0-34.0); MEAN CORPUSCULAR HGB CONC 32.7 % (32.0-36.0); MONO % 10.6 % (0.0-8.0); MONOCYTE # 1.9 TH/MM3 (0-0.9); NEUT % 73.1 % (16.0-70.0); PLATELET COUNT 184 TH/MM3 (150-450); RED BLOOD COUNT 3.51 MIL/MM3 (4.50-5.90); RED CELL DISTRIBUTION WIDTH 15.2 % (11.6-17.2)
[2017-12-30 14:37] LABS: ALBUMIN 2.7 GM/DL (3.4-5.0); AST (GOT) 24 U/L (15-37); BICARBONATE 26.2 MEQ/L (21.0-32.0); BLOOD UREA NITROGEN 6 MG/DL (7-18); CALCIUM 8.3 MG/DL (8.5-10.1); CHLORIDE 104 MEQ/L (98-107); CREATININE 0.88 MG/DL (0.60-1.30); GLOMERULAR FILTRATION RATE 103 ML/MIN (>89); GLUCOSE,RANDOM 134 MG/DL (74-106); MAGNESIUM 0.9 MG/DL (1.5-2.5); SODIUM (NA) 141 MEQ/L (136-145)
[2017-12-30 14:38] LABS: ALT (GPT) 15 U/L (12-78); PHOSPHORUS 1.8 MG/DL (2.5-4.9)
[2017-12-30 14:47] LABS: ALKALINE PHOSPHATASE 90 U/L (45-117); FREE T4 1.46 NG/DL (0.76-1.46); TOTAL BILIRUBIN ADULT 0.8 MG/DL (0.2-1.0); TOTAL PROTEIN 7.3 GM/DL (6.4-8.2)
[2017-12-30 16:13] LABS: HEMOGLOBIN A1C 5.6 % (4.3-6.0)
[2017-12-30] MEDS ORDERED: Vancomycin Consult Pharmacy 1 EA OTHER SCH (17:45)
[2017-12-30] MEDS ORDERED: ACETAMINOPHEN 325 MG TAB PO PRN (17:45)
--- NOTE | 2017-12-30 18:53 | RADRPT ---
EXAM DATE/TIME: 12/30/2017 18:05 [place] COMPARISON: No previous studies available for comparison. INDICATIONS : Fever. MEDICAL HISTORY : None. SURGICAL HISTORY : None. ENCOUNTER: Initial ACUITY: 1 day PAIN SCORE: 0/10 LOCATION: Bilateral chest FINDINGS: The lungs are grossly clear. Cardiac contours are satisfactory for technique and projection. No signi ficant effusion is noted. CONCLUSION: No acute disease Rich Kwon MD on December 30, 2017 at 18:47 Board Certified Radiologist. This report was verified electronically.
[2017-12-30] MEDS ORDERED: VANCOMYCIN INJ 1,000 MG in SODIUM CHLOR 0.9% 250 ML INJ 250 ML IV ONE (19:00)
[2017-12-30 19:12] LABS: AMORPHOUS SEDIMENT, URINE RARE; BACTERIA, URINE RARE /hpf; BILIRUBIN, URINE NEG (NEG); BLOOD, URINE SMALL (NEG); GLUCOSE,URINE NEG (NEG); KETONE, URINE TRACE mg/dL (NEG); NITRITE,URINE NEG (NEG); PH, URINE 7.5 (5.0-8.5); SQUAMOUS EPITHELIAL CELL URINE <1 /hpf (0-5); URINE COLOR YELLOW (YELLW/STRAW); URINE LEUKOCYTE ESTERASE MOD (NEG)
[2017-12-30] MEDS: PIPERACIL-TAZO 4.5 GM PREMIX 100 ML IV SCH (20:06)
[2017-12-30] MEDS: ATORVASTATIN 40 MG TAB PO SCH (20:07)
[2017-12-31] VITALS (12 sets, daily range): BP systolic 115–127; BP diastolic 66–76; PULSE 95–122; RESP 17–35; TEMP 98.3–99.4; O2SAT 94–100
[2017-12-31] MEDS: SODIUM CHLOR 0.9% 1000 ML INJ 1,000 ML IV SCH ×2 (01:17→14:37)
[2017-12-31] MEDS: LORazepam 2 MG/ML VIAL IV PUSH PRN ×3 (02:00→21:59)
[2017-12-31] MEDS: CHLORHEXIDINE GLUCONATE 2 % 1 PACK (2 CLOTHS) TOP SCH (04:00)
[2017-12-31] MEDS: PIPERACIL-TAZO 4.5 GM PREMIX 100 ML IV SCH ×3 (04:14→21:00)
[2017-12-31 05:48] LABS: HEMATOCRIT 31.7 % (39.0-51.0); HEMOGLOBIN 10.4 GM/DL (13.0-17.0); MEAN CELL VOLUME 90.2 FL (80.0-100.0); MEAN CORPUSCULAR HEMOGLOBIN 29.5 PG (27.0-34.0); MEAN CORPUSCULAR HGB CONC 32.7 % (32.0-36.0); RED BLOOD COUNT 3.51 MIL/MM3 (4.50-5.90)
[2017-12-31 05:49] LABS: AUTOMATED NEUTROPHIL # 12.6 TH/MM3 (1.8-7.7); BASOPHIL % 0.2 % (0.0-2.0); LYMPH % 13.7 % (9.0-44.0); LYMPHOCYTE # 2.3 TH/MM3 (1.0-4.8); MEAN PLATELET VOLUME 9.2 FL (7.0-11.0); MONO % 11.9 % (0.0-8.0); NEUT % 74.2 % (16.0-70.0); PLATELET COUNT 184 TH/MM3 (150-450); RED CELL DISTRIBUTION WIDTH 15.6 % (11.6-17.2)
[2017-12-31 06:12] LABS: ALBUMIN 2.6 GM/DL (3.4-5.0); AST (GOT) 34 U/L (15-37); BICARBONATE 26.1 MEQ/L (21.0-32.0); BLOOD UREA NITROGEN 6 MG/DL (7-18); CALCIUM 8.4 MG/DL (8.5-10.1); CHLORIDE 104 MEQ/L (98-107); CREATININE 0.89 MG/DL (0.60-1.30); GLOMERULAR FILTRATION RATE 102 ML/MIN (>89); GLUCOSE,RANDOM 135 MG/DL (74-106); MAGNESIUM 0.9 MG/DL (1.5-2.5); SODIUM (NA) 140 MEQ/L (136-145)
[2017-12-31 06:13] LABS: ALT (GPT) 18 U/L (12-78); PHOSPHORUS 1.4 MG/DL (2.5-4.9)
[2017-12-31 06:14] LABS: ALKALINE PHOSPHATASE 164 U/L (45-117); TOTAL BILIRUBIN ADULT 0.8 MG/DL (0.2-1.0); TOTAL PROTEIN 7.1 GM/DL (6.4-8.2)
--- NOTE | 2017-12-31 10:11 | HHI.PR ---
Subjective Remarks 12-29 Follow up for SDH s/p drainage. Patient is currently resting in bed. He becomes somewhat hypothermic and now has gudelia hugger and temp is slowly improving. Overnight required some Precedex due to agitation. 12-30 OFF PRECEDEX BUT STILL IN 4 POINT RESTRAINTS NEEDS SAFE PLACEMENT IS APHASIC WILL NEED SNF VS [facility] DUE TO RISK OF FALLS CASE MANAGEMENT FOR HELP WITH PLACEMENT SNF/[facility]/BACK TO [facility]?? 12-31 HAD FEVERS YESTERDAY [facility] RN AND PT PATIENT IS QUITE APHASIC DOES NOT UNDERSTAND IS PULLING OUT ALL HIS LINES AND CONDOM CATHETER UA WAS POSITIVE CONTINUE VANCO AND ZOSYN AM LABS CONTINUE SOFT RESTRAINTS CHEST XRAY WAS NEGATIVE BLOOD CULTURES ARE PENDING Objective Vitals Vital Signs Date Time Temp Pulse Resp B/P (MAP) Pulse Ox O2 Delivery O2 Flow Rate FiO2 12/31/17 06:00 105 12/31/17 04:00 99.4 95 24 123/76 (92) 96 12/31/17 04:00 95 12/31/17 02:00 101 12/31/17 00:00 103 12/31/17 00:00 99.1 103 17 124/70 (88) 100 12/30/17 22:00 116 12/30/17 20:00 99.6 120 25 138/80 (99) 99 12/30/17 20:00 120 12/30/17 18:45 100.8 12/30/17 18:00 101.5 12/30/17 18:00 128 12/30/17 16:00 99.3 128 20 126/80 (95) 97 12/30/17 16:00 126 12/30/17 14:00 102 12/30/17 12:00 100.0 102 20 102/62 (75) 100 12/30/17 12:00 102 I/O 12/30/17 12/30/17 12/30/17 12/31/17 12/31/17 12/31/17 07:00 15:00 23:00 07:00 15:00 23:00 Intake Total 400 ml 1550 ml Output Total 625 ml 700 ml 350 ml Balance -625 ml -300 ml 1200 ml Intake Oral 400 ml IV Total 1550 ml Output Urine Total 625 ml 700 ml 350 ml # Voids 1 2 # Bowel Movements 2 2 0 Result Diagram: 12/31/17 0422 12/31/17 0422 Other Results Laboratory Tests Test 12/30/17 13:35 12/30/17 18:45 12/31/17 04:22 White Blood Count 18.0 TH/MM3 17.0 TH/MM3 Red Blood Count 3.51 MIL/MM3 3.51 MIL/MM3 Hemoglobin 10.4 GM/DL 10.4 GM/DL Hematocrit 31.8 % 31.7 % Mean Corpuscular Volume 90.4 FL 90.2 FL Mean Corpuscular Hemoglobin 29.6 PG 29.5 PG Mean Corpuscular Hemoglobin Concent 32.7 % 32.7 % Red Cell Distribution Width 15.2 % 15.6 % Platelet Count 184 TH/MM3 184 TH/MM3 Mean Platelet Volume 9.0 FL 9.2 FL Neutrophils (%) (Auto) 73.1 % 74.2 % Lymphocytes (%) (Auto) 16.2 % 13.7 % Monocytes (%) (Auto) 10.6 % 11.9 % Eosinophils (%) (Auto) 0.0 % 0.0 % Basophils (%) (Auto) 0.1 % 0.2 % Neutrophils # (Auto) 13.2 TH/MM3 12.6 TH/MM3 Lymphocytes # (Auto) 2.9 TH/MM3 2.3 TH/MM3 Monocytes # (Auto) 1.9 TH/MM3 2.0 TH/MM3 Eosinophils # (Auto) 0.0 TH/MM3 0.0 TH/MM3 Basophils # (Auto) 0.0 TH/MM3 0.0 TH/MM3 CBC Comment DIFF FINAL DIFF FINAL Differential Comment Blood Urea Nitrogen 6 MG/DL 6 MG/DL Creatinine 0.88 MG/DL 0.89 MG/DL Random Glucose 134 MG/DL 135 MG/DL Total Protein 7.3 GM/DL 7.1 GM/DL Albumin 2.7 GM/DL 2.6 GM/DL Calcium Level 8.3 MG/DL 8.4 MG/DL Phosphorus Level 1.8 MG/DL 1.4 MG/DL Magnesium Level 0.9 MG/DL 0.9 MG/DL Alkaline Phosphatase 90 U/L 164 U/L Aspartate Amino Transf (AST/SGOT) 24 U/L 34 U/L Alanine Aminotransferase (ALT/SGPT) 15 U/L 18 U/L Total Bilirubin 0.8 MG/DL 0.8 MG/DL Sodium Level 141 MEQ/L 140 MEQ/L Potassium Level 3.4 MEQ/L 3.3 MEQ/L Chloride Level 104 MEQ/L 104 MEQ/L Carbon Dioxide Level 26.2 MEQ/L 26.1 MEQ/L Anion Gap 11 MEQ/L 10 MEQ/L Estimat Glomerular Filtration Rate 103 ML/MIN 102 ML/MIN Hemoglobin A1c 5.6 % Free Thyroxine 1.46 NG/DL Thyroid Stimulating Hormone 3rd Gen 0.781 uIU/ML Urine Color YELLOW Urine Turbidity HAZY Urine pH 7.5 Urine Specific [place] 1.013 Urine Protein TRACE mg/dL Urine Glucose (UA) NEG mg/dL Urine Ketones TRACE mg/dL Urine Occult Blood SMALL Urine Nitrite NEG Urine Bilirubin NEG Urine Urobilinogen 2.0 MG/DL Urine Leukocyte Esterase MOD Urine RBC 11 /hpf Urine WBC 58 /hpf Urine Squamous Epithelial Cells <1 /hpf Urine Amorphous Sediment RARE Urine Bacteria RARE /hpf Microscopic Urinalysis Comment CULTURE INDICATED Imaging Last Impressions Chest X-Ray 12/30/17 0000 Signed Impressions: Service Date/Time: Saturday, December 30, 2017 18:05 - CONCLUSION: No acute disease Rich Kwon MD Head CT 12/24/17 0600 Signed Impressions: Service Date/Time: Sunday, December 24, 2017 02:02 - CONCLUSION: 1. Interval placement of bilateral subdural drainage catheters with decrease in the size of the bilateral subdural collections. 2. New area of acute high-density hemorrhage over the right frontal lobe measuring up to 1.4 cm. the subdural in this region measured up to 1.4 cm with a lower density collection on the prior study. Martin Jarrett MD Objective Remarks GENERAL: Awake and alert not so oriented due to aphasia did not know which hospital he was in moves all 4 extremities currently in soft restraints for his protection SKIN: Warm and dry. HEAD: Atraumatic. Normocephalic. Has dev on bilateral temporal areas EYES: Pupils equal and round. No scleral icterus. No injection or drainage. Extraocular muscles appear grossly intact ENT: No nasal bleeding or discharge. Mucous membranes pink and moist. Tongue is midline NECK: Trachea midline. No JVD. Supple CARDIOVASCULAR: Regular rate and rhythm. S1-S2 no S3 or S4 RESPIRATORY: No accessory muscle use. Clear to auscultation. Breath sounds equal bilaterally. GASTROINTESTINAL: Abdomen soft, non-tender, nondistended. Hepatic and splenic margins not palpable. MUSCULOSKELETAL: Extremities without clubbing, cyanosis, or edema. No obvious deformities. NEUROLOGICAL: Awake and alert. No obvious cranial nerve deficits. Motor grossly within normal limits. 4 out of 5 muscle strength in the arms and legs. Aphasic speech. PSYCHIATRIC: INAppropriate mood and affect; insight and judgment ABnormal. Procedures 12/21/2017 Right frontal nichol border hole with evacuation or subdural hematoma Left frontal nichol border hole with evacuation or subdural hematoma Medications and IVs Current Medications Sodium Chloride 1,000 ml @ 75 mls/hr [id number] IV Last administered on at 01:17; Start 12/21/17 at 11:54 Famotidine (Pepcid Inj) 20 mg Q12HR IV PUSH Last administered on 12/26/17at 12: 18; Start 12/21/17 at 12:00; Stop 12/26/17 at 13:04; Status DC Ondansetron HCl (Zofran Inj) 4 mg Q6H PRN IV PUSH NAUSEA OR VOMITING; Start at 12:00 Albuterol/ Ipratropium (Duoneb Neb) 1 ampule Q4HR NEB PRN INH WHEEZING; Start 12/21/17 at 12:00 Miscellaneous Information 1 [id number] XX Last administered on 12/21/17at 12:00; Start 12/21/17 at 12:00 Chlorhexidine Gluconate (Chlorhexidine 2% Cloth) Taper DAILY@04 TOP Last administered on 12/28/17at 04:00; Start 12/22/17 at 04:00; Stop 12/18/18 at 03:59 Chlorhexidine Gluconate (Chlorhexidine 2% Cloth) 3 pack UNSCH PRN TOP HYGIENIC CARE; Start 12/21/17 at 12:00 Senna/Docusate Sodium (Rossana-Colace) 1 tab BID PO Last administered on at 20:53; Start 12/21/17 at 21:00 Magnesium Hydroxide (Milk Of Magnesia Liq) 30 ml Q12H PRN PO Mild constipation ; Start 12/21/17 at 12:00 Sennosides (Senokot) 17.2 mg Q12H PRN PO Moderate constipation; Start 12/21/17 at 12:00 Bisacodyl (Dulcolax Supp) 10 mg DAILY PRN RECTAL SEVERE CONSITIPATION; Start at 12:00 Lactulose (Lactulose Liq) 30 ml DAILY PRN PO SEVERE CONSITIPATION; Start at 12:00 Lactulose (Lactulose Liq) 30 ml DAILY PO Last administered on 12/26/17at 12:19; Start 12/22/17 at 09:00 Levetriacetam 500 mg/Sodium Chloride 105 ml @ 420 mls/hr Q12HR IV Last administered on 12/30/17at 20:06; Start 12/21/17 at 21:00 Rifaximin (Xifaxan) 550 mg BID PO Last administered on 12/30/17 20:06; Start 12/21/17 at 21:00 Atorvastatin Calcium (Lipitor) 40 mg HS PO Last administered on 12/30/17 20:07 ; Start 12/21/17 at 21:00 Metoprolol Tartrate (Lopressor) 25 mg Q12HR PO Last administered on 12/30/17at 20:06; Start 12/21/17 at 21:00 Cefazolin Sodium (Ancef Inj) 2,000 mg STK-MED ONCE .ROUTE ; Start 12/21/17 at 12 :52; Stop 12/21/17 at 12:53; Status DC Thrombin (Thrombin Top Soln) 10,000 units STK-MED ONCE .ROUTE Last administered on 12/21/17at 20:36; Start 12/21/17 at 12:52; Stop 12/21/17 at 12:53 ; Status DC Gelatin (Gelfoam 100 Top) 1 foam STK-MED ONCE .ROUTE Last administered on at 20:36; Start 12/21/17 at 12:52; Stop 12/21/17 at 12:53; Status DC Gentamicin Sulfate (Gentamicin Inj) 240 mg STK-MED ONCE .ROUTE ; Start 12/21/17 at 12:52; Stop 12/21/17 at 12:53; Status DC Sodium Chloride 250 ml @ As Directed STK-MED ONCE .ROUTE ; Start 12/21/17 at 12 :52; Stop 12/21/17 at 12:53; Status DC Vancomycin HCl (Vancomycin Inj) 1,000 mg STK-MED ONCE .ROUTE ; Start 12/21/17 at 12:54; Stop 12/21/17 at 12:55; Status DC Microfibriller Collagen Hemostat (Avitene Bandage) 1 bandage STK-MED ONCE .ROUTE Last administered on 12/21/17at 20:36; Start 12/21/17 at 15:19; Stop at 15:20; Status DC Lidocaine/ Epinephrine (Xylocaine-Epi 1%-1:100,000 Inj) 30 ml STK-MED ONCE .ROUTE Last administered on 12/21/17at 20:36; Start 12/21/17 at 15:19; Stop at 15:20; Status DC Dexamethasone Sodium Phosphate (Decadron Inj) 20 mg STK-MED ONCE .ROUTE ; Start 12/21/17 at 15:19; Stop 12/21/17 at 15:20; Status DC Cefazolin Sodium/ Dextrose 50 ml @ As Directed STK-MED ONCE .ROUTE Last administered on 12/21/17at 20:32; Start 12/21/17 at 20:30; Stop 12/21/17 at 20:31 ; Status DC Levetriacetam (Keppra Inj) 1,000 mg STK-MED ONCE IV Last administered on at 20:44; Start 12/21/17 at 20:39; Stop 12/21/17 at 20:40; Status DC Fentanyl Citrate (fentaNYL INJ) 200 mcg STK-MED ONCE .ROUTE ; Start 12/21/17 at 21:48; Stop 12/21/17 at 21:49; Status DC Sugammadex Sodium (Bridion Inj) 200 mg STK-MED ONCE IV PUSH ; Start 12/21/17 at 21:48; Stop 12/21/17 at 21:49; Status DC Miscellaneous Information ALL NURSING DEPARTME... UNSCH PRN .XX SEE LABEL COMMENTS; Start 12/21/17 at 22:00; Stop 12/22/17 at 21:59; Status DC Labetalol HCl (*TRANDATE INJ PERIprocedural Use ONLY) 100 mg STK-MED ONCE .ROUTE Last administered on 12/21/17at 22:12; Start 12/21/17 at 22:12; Stop at 22:13; Status DC Nicardipine HCl 25 mg/Sodium Chloride 250 ml @ 50 mls/hr TITRATE PRN IV Blood Pressure Management Last administered on 12/25/17at 06:55; Start 12/22/17 at 04: 00; Stop 12/27/17 at 16:39; Status DC Flumazenil (Romazicon Inj) 0.2 mg Q1M PRN IV PUSH SEE LABEL COMMENTS; Start at 16:00 Lorazepam (Ativan) 1 mg Q4H PRN PO CIWA 8 - 10; Start 12/22/17 at 16:00 Lorazepam (Ativan Inj) 1 mg Q4H PRN IV PUSH CIWA 8 - 10 Last administered on at 06:10; Start 12/22/17 at 16:00 Lorazepam (Ativan) 2 mg Q2H PRN PO CIWA 11-14 Last administered on 12/24/17at 20 :44; Start 12/22/17 at 16:00 Lorazepam (Ativan Inj) 2 mg Q2H PRN IV PUSH CIWA 11-14 Last administered on at 10:30; Start 12/22/17 at 16:00 Lorazepam (Ativan Inj) 2 mg Q1H PRN IV PUSH CIWA 15-20 Last administered on at 21:29; Start 12/22/17 at 16:00 Lorazepam (Ativan Inj) 2 mg Q15M PRN IV PUSH CIWA > 20 Last administered on at 23:08; Start 12/22/17 at 16:00 Potassium Chloride 100 ml @ 50 mls/hr Q2H PRN IV For Potassium 2.8 - 3.2 mEq/ L Last administered on 12/27/17at 07:52; Start 12/22/17 at 16:00 Potassium Chloride 100 ml @ 50 mls/hr Q2H PRN IV For Potassium 2.8 - 3.2 mEq/ L Last administered on 12/26/17at 20:14; Start 12/22/17 at 16:00 Potassium Bicarb/ Potassium Chloride (K-Lyte Cl Eff) 50 meq UNSCH PRN PO For Potassium 3.3 - 3.5 mEq/L Last administered on 12/22/17at 16:36; Start 12/22/17 at 16:00 Potassium Chloride 100 ml @ 25 mls/hr UNSCH PRN IV For Potassium 3.3 - 3.5 mEq /L; Start 12/22/17 at 16:00 Potassium Chloride 100 ml @ 50 mls/hr Q2H PRN IV For Potassium 3.3 - 3.5 mEq/L ; Start 12/22/17 at 16:00 Magnesium Sulfate 4 gm/Sodium Chloride 100 ml @ 50 mls/hr UNSCH PRN IV For Magnesium 0.9 - 1.1 mg/dL Last administered on 12/31/17at 09:45; Start 12/22/17 at 16:00 Magnesium Oxide (Mag-Ox) 800 mg UNSCH PRN PO For Magnesium 1.2 - 1.6 mg/dL; Start 12/22/17 at 16:00 Magnesium Sulfate 2 gm/Sodium Chloride 100 ml @ 50 mls/hr UNSCH PRN IV For Magnesium 1.2 - 1.6 mg/dL; Start 12/22/17 at 16:00 Potassium Phosphate (K-Phos) 2,000 mg Q4H PRN PO For Phosphorus < 2.5 mg/dL; Start 12/22/17 at 16:00 Sodium Phosphate 30 mmol/Sodium Chloride 250 ml @ 42 mls/hr UNSCH PRN IV For Phosphorus < 2.5 mg/dL; Start 12/22/17 at 16:00 Potassium Phosphate (K-Phos) 2,000 mg UNSCH PRN PO/TUBE SEE LABEL COMMENTS; Start 12/22/17 at 16:00 Potassium Phosphate 30 mmol/ Sodium Chloride 260 ml @ 42 mls/hr UNSCH PRN IV SEE LABEL COMMENTS Last administered on 12/31/17at 09:45; Start 12/22/17 at 16:00 Ziprasidone (Geodon Inj) 20 mg Q12H PRN IM SEVERE AGITATION Last administered on 12/25/17at 09:46; Start 12/25/17 at 10:00 Enalaprilat (Vasotec Inj) 2.5 mg Q4H PRN IV PUSH SBP > 160 Last administered on 12/30/17at 04:10; Start 12/25/17 at 11:00 Metoprolol Tartrate (Lopressor Inj) 5 mg STK-MED ONCE .ROUTE Last administered on 12/25/17at 11:17; Start 12/25/17 at 11:15; Stop 12/25/17 at 11:16; Status DC Metoprolol Tartrate (Lopressor Inj) 5 mg Q3H PRN IV PUSH Pulse rate > 130 Last administered on 12/25/17at 11:17; Start 12/25/17 at 12:15; Stop 12/25/17 at 12:46 ; Status DC Metoprolol Tartrate (Lopressor Inj) 5 mg Q1H PRN IV PUSH Pulse rate > 130 Last administered on 12/25/17at 13:15; Start 12/25/17 at 13:00; Stop 12/27/17 at 16:39 ; Status DC Dexmedetomidine HCl 200 mcg/ Sodium Chloride 52 ml @ 2.9 mls/hr TITRATE PRN IV SEDATION Last administered on 12/27/17at 06:55; Start 12/25/17 at 16:00; Stop 12/27/17 at 16:39; Status DC Famotidine (Pepcid) 20 mg BID PO Last administered on 12/30/17at 20:06; Start at 21:00 Nifedipine (Procardia Xl) 30 mg DAILY PO Last administered on 12/30/17at 08:08; Start 12/27/17 at 09:00 Nifedipine (Procardia Xl) 30 mg ONCE ONCE PO Last administered on 12/26/17at 16 :54; Start 12/26/17 at 15:45; Stop 12/26/17 at 16:05; Status DC Quetiapine Fumarate (SEROquel) 50 mg BID PO Last administered on 12/28/17at 08: 38; Start 12/26/17 at 21:00; Stop 12/28/17 at 09:37; Status DC Lidocaine HCl (Xylocaine-Mpf 1% Inj) 10 ml STK-MED ONCE OTHER ; Start 12/21/17 at 12:00; Stop 12/26/17 at 16:09; Status DC Rocuronium [place] (Zemuron Inj) 50 mg STK-MED ONCE IV PUSH ; Start 12/21/17 at 12:00; Stop 12/26/17 at 16:09; Status DC Phenylephrine HCl (Neosynephrine/ NS 1000 Mcg/10ml Syr) 1,000 mcg STK-MED ONCE IV ; Start 12/21/17 at 12:00; Stop 12/26/17 at 16:09; Status DC Ephedrine Sulfate (ePHEDrine/NS 25 MG/5 ML SYR) 25 mg STK-MED ONCE IV ; Start at 12:00; Stop 12/26/17 at 16:09; Status DC Metoprolol Tartrate (Lopressor Inj) 5 mg STK-MED ONCE IV ; Start 12/21/17 at 12: 00; Stop 12/26/17 at 16:09; Status DC Hydralazine HCl (Apresoline Inj) 20 mg STK-MED ONCE IV ; Start 12/21/17 at 12:00 ; Stop 12/26/17 at 16:09; Status DC Esmolol HCl (Brevibloc Bolus Inj) 100 mg STK-MED ONCE IV ; Start 12/21/17 at 12: 00; Stop 12/26/17 at 16:09; Status DC Dexamethasone Sodium Phosphate (Decadron Inj) 4 mg STK-MED ONCE IV ; Start 12/21 at 12:00; Stop 12/26/17 at 16:09; Status DC Ondansetron HCl (Zofran Inj) 4 mg STK-MED ONCE IV ; Start 12/21/17 at 12:00; Stop 12/26/17 at 16:09; Status DC Propofol (Diprivan 200 Mg/20 ml Inj) 200 mg STK-MED ONCE IV ; Start 12/21/17 at 12:00; Stop 12/26/17 at 16:09; Status DC Sodium Chloride (Sodium Chloride 0.9% Inj) 20 ml STK-MED ONCE IV ; Start at 12:00; Stop 12/26/17 at 16:09; Status DC Norepinephrine Bitartrate (Levophed Inj) 4 mg STK-MED ONCE .ROUTE Last administered on 12/27/17at 09:00; Start 12/27/17 at 09:15; Stop 12/27/17 at 09:16 ; Status DC Quetiapine Fumarate (SEROquel) 50 mg HS PO Last administered on 12/30/17at 20:07 ; Start 12/28/17 at 21:00 Dexmedetomidine HCl 200 mcg/ Sodium Chloride 50 ml @ 2.77 mls/hr TITRATE PRN IV Desired RASS Last administered on 12/29/17at 02:05; Start 12/28/17 at 18:30; Stop 12/29/17 at 12:10; Status DC Potassium Chloride (KCl) 20 meq Q12HR PO Last administered on 12/30/17at 20:06; Start 12/28/17 at 21:00; Stop 12/31/17 at 20:59 Quetiapine Fumarate (SEROquel) 25 mg DAILY PO Last administered on 12/30/17at 08 :07; Start 12/30/17 at 09:00 Acetaminophen (Tylenol) 650 mg Q4H PRN PO fever/ackerman Last administered on at 18:15; Start 12/30/17 at 17:45 Piperacillin Sod/ Tazobactam Sod 100 ml @ 200 mls/hr Q8H IV Last administered on 12/31/17at 04:14; Start 12/30/17 at 20:00 Vancomycin HCl 1000 mg/Sodium Chloride 250 ml @ 250 mls/hr ONCE ONCE IV Last administered on 12/30/17at 20:05; Start 12/30/17 at 19:00; Stop 12/30/17 at 19:59 ; Status DC Pharmacy Profile Note 0 ml @ 0 mls/hr UNSCH OTHER ; Start 12/30/17 at 17:45 A/P Problem List: (1) Bilateral subdural hematomas ICD Code: S06.5X9A - Traumatic subdural hemorrhage with loss of consciousness of unspecified duration, initial encounter (2) HTN (hypertension) ICD Code: I10 - Essential (primary) hypertension Assessment and Plan Mr. East is a 71-year-old -[place] gentleman who originally presented to [facility] emergency department with altered mental status and confusion. He has chronic expressive aphasia and right-sided deficit from a previous stroke. CT scan indicated large bilateral subdural fluid collection. Subsequently after consulting with neurosurgeon patient was brought to [facility] and underwent emergent decompressive surgery for subdural hematoma. He was managed in the ICU. He was given [facility] protocol for alcohol abuse. His care was transferred to hospitalist service on 12/26/2017. Large bilateral subdural hematoma History of previous stroke Status post bilateral frontal NICHOL hole with evacuation of subdural hematoma. Drains are discontinued by neurosurgery. Neurosurgery following. Continue Lipitor 40 mg nightly. Alcohol withdrawal Agitation Patient is currently on [facility] protocol d/c precedex. Seroquel 50 mg QHS per neurosurgery. Add Seroquel 25 mg every morning Hypertension Nifedipine 30 mg daily with holding parameters. Metoprolol 25mg BID with holding parameters. Hypokalemia Potassium 3.2. Continue with PO KCL. Mild hypothermia - currently on Gudelia hugger. Temp is normalizing. -Off bear hugger Full code. SCDs. HAD FEVERS 3-30 STARTED ON VANCO AND ZOSYN- BC PENDING- UA POSITIVE--CHEST XRAY IS NEGATIVE SOFT RESTRAINTS FOR HIS PROTECTION Patient's son wants him to go to a rehab in [place]. Speech recommends Pureed diet with thin liquids. Case management for placement at [facility] versus [facility] versus back to [facility] Discharge Planning Pending case management ability to find a safe place for discharge Jerman Kumar DO Dec 31, 2017 10:10
[2017-12-31] MEDS: NIFEdipine 30 MG SUSTAINED RELEASE TAB PO SCH (10:42)
[2017-12-31] MEDS: levETIRAcetam INJ 500 MG in SODIUM CHLORIDE 0.9% INJ 100 ML IV SCH ×2 (10:42→21:01)
[2017-12-31] MEDS: FAMOTIDINE 20 MG TAB PO SCH ×2 (10:43→21:01)
[2017-12-31] MEDS: QUEtiapine FUMARATE 25 MG TAB PO SCH ×2 (10:43→21:01)
[2017-12-31] MEDS: METOPROLOL TARTRATE 25 MG TAB PO SCH ×2 (10:43→21:01)
[2017-12-31] MEDS: DOCUSATE SODIUM 50 MG/SENNA 8.6 MG TAB PO SCH ×2 (10:43→21:01)
[2017-12-31] MEDS: RIFAXIMIN 550 MG TAB PO SCH ×2 (10:43→21:01)
[2017-12-31] MEDS: LACTULOSE SYRUP 20 GM/30 ML CUP PO SCH (10:44)
[2017-12-31] MEDS: POTASSIUM CHLORIDE 20 MEQ CONTROLLED RELEASE TAB PO SCH (10:47)
[2017-12-31] MEDS: ZIPRASIDONE MESYLATE 20 MG VIAL IM PRN ×2 (11:39→23:37)
--- NOTE | 2017-12-31 14:43 | HHI.NSPN ---
(Delvis Matute) History Chief Complaint: Unable to obtain due to patient's mental status. (Delvis Matute) Interval History Mr. East is a 71 year old male who presented to [facility] as a transfer from [facility] for evaluation of subdural hematoma. History cannot be obtained from the patient and no family at bedside thus history obtained from the patient's chart. Mr. Oquendo has a history of chronic aphasia and right side weakness from a prior stroke. He also has a history of chronic etoh abuse. He presented to [place] ED with confusion and AMS. A CT Brain had shown large bilateral subdural fluid collections with mass effect of the brain. A neurosurgical evaluation was requested for surgical decompression. 12/22: doing well, appears much more awake, talking but speech is confused, not really following commands, smiling and very pleasant. bilateral subdural drains in place 12/26: Currently mildly sedated on Precedex due to mild agitation and restlessness. His subdural drains were removed over the weekend. Otherwise nurse reports no significant overall changes to neuro checks. Chronic aphasia. 12/27: patient seen and examined this am during rounds. received multiple doses of Ativan last night for agitation, currently also on Precedex drip. Currently appearing comatose due to heavy sedatives. Hypotensive with 77 systolic bp. 12/28: more awake today, confused, baseline aphasic, moves all four ext. Restless and agitated overnight. 12/29: currently sedated on precedex due to agitation and restlessness 12/31: The patient is awake and alert in bed. He is in four-point soft restraints due to agitation. He is not on any sedation. He is confused and disorientated except to person. He is trying to sit up. He readily interacts. He spontaneously moves all extremities and follows commands and his muscle strength is good. (Delvis Matute) System Review Comments Unable to obtain due to patient's mental status. (Delvis Matute) Exam Results 3/29/18 3/29/18 12/30/17 12/30/17 12/31/17 12/31/17 06:00 18:00 06:00 18:00 06:00 18:00 Intake Total 300 ml 378 ml 400 ml 1550 ml Output Total 1550 ml 500 ml 625 ml 700 ml 350 ml Balance -1250 ml -122 ml -625 ml -300 ml 1200 ml Intake Oral 280 ml 400 ml IV Total 300 ml 98 ml 1550 ml Output Urine Total 1550 ml 500 ml 625 ml 700 ml 350 ml # Voids 2 1 2 # Bowel Movements 0 0 2 2 0 Vital Signs Date Time Temp Pulse Resp B/P (MAP) Pulse Ox O2 Delivery O2 Flow Rate FiO2 12/31/17 06:00 105 12/31/17 04:00 99.4 95 24 123/76 (92) 96 12/31/17 04:00 95 12/31/17 02:00 101 12/31/17 00:00 103 12/31/17 00:00 99.1 103 17 124/70 (88) 100 12/30/17 22:00 116 12/30/17 20:00 99.6 120 25 138/80 (99) 99 12/30/17 20:00 120 12/30/17 18:45 100.8 12/30/17 18:00 101.5 12/30/17 18:00 128 12/30/17 16:00 99.3 128 20 126/80 (95) 97 12/30/17 16:00 126 12/30/17 14:00 102 12/30/17 12:00 100.0 102 20 102/62 (75) 100 12/30/17 12:00 102 12/30/17 10:00 104 12/30/17 08:00 99.7 108 23 142/97 (112) 100 12/30/17 08:00 108 12/30/17 06:00 94 12/30/17 04:00 99.7 98 16 175/94 (121) 98 12/30/17 04:00 98 12/30/17 02:00 91 12/30/17 00:00 88 12/30/17 00:00 99.5 88 20 155/87 (109) 100 12/29/17 22:00 101 12/29/17 20:00 94 12/29/17 20:00 99.3 94 19 152/91 (111) 100 12/29/17 18:00 98 12/29/17 16:00 99.7 98 16 146/80 (102) 100 12/29/17 16:00 101 12/29/17 14:00 117 12/29/17 12:00 96.3 63 16 114/75 (88) 99 12/29/17 12:00 63 12/29/17 10:00 61 12/29/17 08:00 76 12/29/17 08:00 72 15 120/75 (90) 100 12/29/17 06:00 55 12/29/17 04:00 56 12/29/17 04:00 97.8 56 14 113/72 (86) 100 12/29/17 02:00 61 12/29/17 00:00 97.5 64 15 123/78 (93) 99 12/29/17 00:00 64 12/28/17 22:00 76 12/28/17 20:00 110 12/28/17 20:00 98.3 110 24 116/73 (87) 99 12/28/17 18:00 130 12/28/17 16:00 135 12/28/17 16:00 97.8 142 19 146/75 (98) 100 (Delvis Matute) Physical Examination GENERAL: Awake & alert in bed attempting to sit up. No sedation. In 4-point soft restraints. Readily interacts. No apparent distress. HEENT: Normocephalic. Bilateral frontal nichol holes w/dev intact w/o any drainage, erythema or streaking noted. Pupils 2 mm reactive, EOM appear intact. MMM & pink, tongue midline. MUSCULOSKELETAL: PEREZ spontaneously & purposefully. No evident clubbing or deformity. NEUROLOGICAL: AA&O x1, person only. Speech garbled and inappropriate, confused. Expressive aphasia. CN II through XII appear grossly intact. Pupils 2 mm reactive, EOM appear intact. Tongue midline. Spontaneously moves all extremities purposefully. Follows commands with all extremities. Muscle strength appears strong. (Delvis Matute) Lab, Micro, Other Results Recent Impressions Chest X-Ray 12/30/17 0000 Signed Impressions: Service Date/Time: Saturday, December 30, 2017 18:05 - CONCLUSION: No acute disease Rich Kwon MD Laboratory Tests Test 12/30/17 13:35 12/30/17 18:45 12/31/17 04:22 White Blood Count 18.0 TH/MM3 17.0 TH/MM3 Red Blood Count 3.51 MIL/MM3 3.51 MIL/MM3 Hemoglobin 10.4 GM/DL 10.4 GM/DL Hematocrit 31.8 % 31.7 % Mean Corpuscular Volume 90.4 FL 90.2 FL Mean Corpuscular Hemoglobin 29.6 PG 29.5 PG Mean Corpuscular Hemoglobin Concent 32.7 % 32.7 % Red Cell Distribution Width 15.2 % 15.6 % Platelet Count 184 TH/MM3 184 TH/MM3 Mean Platelet Volume 9.0 FL 9.2 FL Neutrophils (%) (Auto) 73.1 % 74.2 % Lymphocytes (%) (Auto) 16.2 % 13.7 % Monocytes (%) (Auto) 10.6 % 11.9 % Eosinophils (%) (Auto) 0.0 % 0.0 % Basophils (%) (Auto) 0.1 % 0.2 % Neutrophils # (Auto) 13.2 TH/MM3 12.6 TH/MM3 Lymphocytes # (Auto) 2.9 TH/MM3 2.3 TH/MM3 Monocytes # (Auto) 1.9 TH/MM3 2.0 TH/MM3 Eosinophils # (Auto) 0.0 TH/MM3 0.0 TH/MM3 Basophils # (Auto) 0.0 TH/MM3 0.0 TH/MM3 CBC Comment DIFF FINAL DIFF FINAL Differential Comment Blood Urea Nitrogen 6 MG/DL 6 MG/DL Creatinine 0.88 MG/DL 0.89 MG/DL Random Glucose 134 MG/DL 135 MG/DL Total Protein 7.3 GM/DL 7.1 GM/DL Albumin 2.7 GM/DL 2.6 GM/DL Calcium Level 8.3 MG/DL 8.4 MG/DL Phosphorus Level 1.8 MG/DL 1.4 MG/DL Magnesium Level 0.9 MG/DL 0.9 MG/DL Alkaline Phosphatase 90 U/L 164 U/L Aspartate Amino Transf (AST/SGOT) 24 U/L 34 U/L Alanine Aminotransferase (ALT/SGPT) 15 U/L 18 U/L Total Bilirubin 0.8 MG/DL 0.8 MG/DL Sodium Level 141 MEQ/L 140 MEQ/L Potassium Level 3.4 MEQ/L 3.3 MEQ/L Chloride Level 104 MEQ/L 104 MEQ/L Carbon Dioxide Level 26.2 MEQ/L 26.1 MEQ/L Anion Gap 11 MEQ/L 10 MEQ/L Estimat Glomerular Filtration Rate 103 ML/MIN 102 ML/MIN Hemoglobin A1c 5.6 % Free Thyroxine 1.46 NG/DL Thyroid Stimulating Hormone 3rd Gen 0.781 uIU/ML Urine Color YELLOW Urine Turbidity HAZY Urine pH 7.5 Urine Specific Freeman 1.013 Urine Protein TRACE mg/dL Urine Glucose (UA) NEG mg/dL Urine Ketones TRACE mg/dL Urine Occult Blood SMALL Urine Nitrite NEG Urine Bilirubin NEG Urine Urobilinogen 2.0 MG/DL Urine Leukocyte Esterase MOD Urine RBC 11 /hpf Urine WBC 58 /hpf Urine Squamous Epithelial Cells <1 /hpf Urine Amorphous Sediment RARE Urine Bacteria RARE /hpf Microscopic Urinalysis Comment CULTURE INDICATED (Delvis Matute) Medical Decision Making Impression and Plan Impression: 71 y/o male s/p bilateral frontal nichol hole for evacuation of subdural hygroma , improved per f/u CT Brain chronic aphasia with chronic right hemiparesis from old CVA Patient is doing well and appears stable neurologically. T max 101.5 yesterday afternoon. Tachycardia. Sodium 140. Mild worsening of hypokalemia. Worsening of hypophosphatemia. Stable hypomagnesemia. Elevation of alk phos. Reviewed labs for today. Slight improvement in leukocytosis. Haemoglobin stable. Plan: Primary management per Hospitalist. Neuro checks. Stat CT brain for any decline in neuro status. Recommend avoiding heavy sedatives. Mobilise patient w/assistance. Continue therapy & rehab efforts. D/c dev . (Delvis Matute) Attending Statement The exam, history, and the medical decision-making described in the above note were completed with the assistance of the mid-level provider. I reviewed and agree with the findings presented. I attest that I had a [id number] encounter with the patient on the same day, and personally performed and documented my assessment and findings in the medical record. On my examination 12/31/17, left temporal scalp dev in place-incision dry and intact without edema. Remains with significant confusion. Speech is mostly clear, somewhat hesitant. Nursing staff indicates the patient has been confused, occasional hallucinating. He thinks that he is out in his fishing boat. Moves all extremities well. Remains awake and alert Relatively stable following bilateral bur hole for subdural hematoma. Speech gradually improving Confusion may be partially related to alcohol withdrawal-encephalopathy (Tyrone Banuelos MD) Delvis Matute Dec 31, 2017 14:43 Tyrone Banuelos MD Dec 31, 2017 20:47
[2017-12-31] MEDS: VANCOMYCIN 1,000 MG/NS 250 ML IV SCH ×2 (16:17)
[2017-12-31] MEDS: ATORVASTATIN 40 MG TAB PO SCH (21:01)
[2018-01-01] VITALS (7 sets, daily range): BP systolic 117–143; BP diastolic 72–92; PULSE 91–108; RESP 20–31; TEMP 97.4–98.7; O2SAT 96–100
[2018-01-01] MEDS: SODIUM CHLOR 0.9% 1000 ML INJ 1,000 ML IV SCH ×2 (03:57→17:17)
[2018-01-01] MEDS: PIPERACIL-TAZO 4.5 GM PREMIX 100 ML IV SCH ×3 (04:00→19:37)
[2018-01-01] MEDS: CHLORHEXIDINE GLUCONATE 2 % 1 PACK (2 CLOTHS) TOP SCH (04:00)
[2018-01-01 05:22] LABS: AUTOMATED NEUTROPHIL # 9.7 TH/MM3 (1.8-7.7); BASOPHIL # 0.1 TH/MM3 (0-0.2); BASOPHIL % 0.5 % (0.0-2.0); HEMATOCRIT 30.1 % (39.0-51.0); HEMOGLOBIN 9.9 GM/DL (13.0-17.0); LYMPH % 13.9 % (9.0-44.0); LYMPHOCYTE # 1.9 TH/MM3 (1.0-4.8); MEAN CELL VOLUME 89.8 FL (80.0-100.0); MEAN CORPUSCULAR HEMOGLOBIN 29.4 PG (27.0-34.0); MEAN CORPUSCULAR HGB CONC 32.8 % (32.0-36.0); MEAN PLATELET VOLUME 9.1 FL (7.0-11.0); MONO % 12.6 % (0.0-8.0); MONOCYTE # 1.7 TH/MM3 (0-0.9); PLATELET COUNT 181 TH/MM3 (150-450); RED BLOOD COUNT 3.35 MIL/MM3 (4.50-5.90); RED CELL DISTRIBUTION WIDTH 15.9 % (11.6-17.2); WHITE BLOOD COUNT 13.3 TH/MM3 (4.0-11.0)
[2018-01-01 05:56] LABS: ALBUMIN 2.4 GM/DL (3.4-5.0); ALKALINE PHOSPHATASE 111 U/L (45-117); ALT (GPT) 21 U/L (12-78); AST (GOT) 35 U/L (15-37); BICARBONATE 26.4 MEQ/L (21.0-32.0); BLOOD UREA NITROGEN 7 MG/DL (7-18); CALCIUM 8.8 MG/DL (8.5-10.1); CHLORIDE 105 MEQ/L (98-107); CREATININE 0.89 MG/DL (0.60-1.30); GLOMERULAR FILTRATION RATE 102 ML/MIN (>89); GLUCOSE,RANDOM 148 MG/DL (74-106); MAGNESIUM 1.8 MG/DL (1.5-2.5); PHOSPHORUS 2.1 MG/DL (2.5-4.9); SODIUM (NA) 140 MEQ/L (136-145); TOTAL BILIRUBIN ADULT 0.7 MG/DL (0.2-1.0); TOTAL PROTEIN 7.3 GM/DL (6.4-8.2)
[2018-01-01] MEDS: RIFAXIMIN 550 MG TAB PO SCH ×2 (09:25→20:06)
[2018-01-01] MEDS: FAMOTIDINE 20 MG TAB PO SCH ×2 (09:25→20:05)
[2018-01-01] MEDS: levETIRAcetam INJ 500 MG in SODIUM CHLORIDE 0.9% INJ 100 ML IV SCH ×2 (09:25→20:06)
[2018-01-01] MEDS: DOCUSATE SODIUM 50 MG/SENNA 8.6 MG TAB PO SCH ×2 (09:25→20:06)
[2018-01-01] MEDS: LACTULOSE SYRUP 20 GM/30 ML CUP PO SCH (09:25)
[2018-01-01] MEDS: METOPROLOL TARTRATE 25 MG TAB PO SCH ×2 (09:25→20:06)
[2018-01-01] MEDS: NIFEdipine 30 MG SUSTAINED RELEASE TAB PO SCH (09:26)
[2018-01-01] MEDS: QUEtiapine FUMARATE 25 MG TAB PO SCH ×2 (09:26→20:05)
--- NOTE | 2018-01-01 10:59 | HHI.PR ---
Subjective Remarks 12-29 Follow up for SDH s/p drainage. Patient is currently resting in bed. He becomes somewhat hypothermic and now has gudelia hugger and temp is slowly improving. Overnight required some Precedex due to agitation. 12-30 OFF PRECEDEX BUT STILL IN 4 POINT RESTRAINTS NEEDS SAFE PLACEMENT IS APHASIC WILL NEED SNF VS [facility] DUE TO RISK OF FALLS CASE MANAGEMENT FOR HELP WITH PLACEMENT SNF/[facility]/BACK TO [place]?? 12-31 HAD FEVERS YESTERDAY [facility] RN AND PT PATIENT IS QUITE APHASIC DOES NOT UNDERSTAND IS PULLING OUT ALL HIS LINES AND CONDOM CATHETER UA WAS POSITIVE CONTINUE VANCO AND ZOSYN AM LABS CONTINUE SOFT RESTRAINTS CHEST XRAY WAS NEGATIVE BLOOD CULTURES ARE PENDING 01-01 WILL NEED SNF OR BACK TO [facility] RN AND PT STILL IN SOFT RESTRAINTS VERY CONFUSED REMAINS APHASIC AM LABS Objective Vitals Vital Signs Date Time Temp Pulse Resp B/P (MAP) Pulse Ox O2 Delivery O2 Flow Rate FiO2 01/01/18 04:00 103 01/01/18 04:00 97.4 108 24 132/80 (97) 96 01/01/18 00:00 102 01/01/18 00:00 98.7 105 26 117/72 (87) 96 12/31/17 20:00 98.3 120 24 124/72 (89) 98 12/31/17 20:00 122 12/31/17 19:47 94 21 12/31/17 18:00 107 12/31/17 16:00 98.5 121 18 115/66 (82) 99 12/31/17 16:00 121 12/31/17 14:00 118 12/31/17 12:00 98.8 105 34 125/70 (88) 97 12/31/17 12:00 105 I/O 12/31/17 12/31/17 12/31/17 01/01/18 01/01/18 01/01/18 07:00 15:00 23:00 07:00 15:00 23:00 Intake Total 1550 ml 975 ml 1961 ml Output Total 350 ml 3000 ml 1750 ml Balance 1200 ml -2025 ml 211 ml Intake Oral 420 ml 720 ml IV Total 1550 ml 555 ml 1241 ml Output Urine Total 350 ml 3000 ml 1750 ml Stool Total 0 ml # Voids 2 # Bowel Movements 0 0 0 Result Diagram: 01/01/18 0353 01/01/18 0353 Other Results Laboratory Tests Test 01/01/18 03:53 White Blood Count 13.3 TH/MM3 Red Blood Count 3.35 MIL/MM3 Hemoglobin 9.9 GM/DL Hematocrit 30.1 % Mean Corpuscular Volume 89.8 FL Mean Corpuscular Hemoglobin 29.4 PG Mean Corpuscular Hemoglobin Concent 32.8 % Red Cell Distribution Width 15.9 % Platelet Count 181 TH/MM3 Mean Platelet Volume 9.1 FL Neutrophils (%) (Auto) 73.0 % Lymphocytes (%) (Auto) 13.9 % Monocytes (%) (Auto) 12.6 % Eosinophils (%) (Auto) 0.0 % Basophils (%) (Auto) 0.5 % Neutrophils # (Auto) 9.7 TH/MM3 Lymphocytes # (Auto) 1.9 TH/MM3 Monocytes # (Auto) 1.7 TH/MM3 Eosinophils # (Auto) 0.0 TH/MM3 Basophils # (Auto) 0.1 TH/MM3 CBC Comment DIFF FINAL Differential Comment Blood Urea Nitrogen 7 MG/DL Creatinine 0.89 MG/DL Random Glucose 148 MG/DL Total Protein 7.3 GM/DL Albumin 2.4 GM/DL Calcium Level 8.8 MG/DL Phosphorus Level 2.1 MG/DL Magnesium Level 1.8 MG/DL Alkaline Phosphatase 111 U/L Aspartate Amino Transf (AST/SGOT) 35 U/L Alanine Aminotransferase (ALT/SGPT) 21 U/L Total Bilirubin 0.7 MG/DL Sodium Level 140 MEQ/L Potassium Level 3.6 MEQ/L Chloride Level 105 MEQ/L Carbon Dioxide Level 26.4 MEQ/L Anion Gap 9 MEQ/L Estimat Glomerular Filtration Rate 102 ML/MIN Imaging Last Impressions Chest X-Ray 12/30/17 0000 Signed Impressions: Service Date/Time: Saturday, December 30, 2017 18:05 - CONCLUSION: No acute disease Rich Kwon MD Head CT 12/24/17 0600 Signed Impressions: Service Date/Time: Sunday, December 24, 2017 02:02 - CONCLUSION: 1. Interval placement of bilateral subdural drainage catheters with decrease in the size of the bilateral subdural collections. 2. New area of acute high-density hemorrhage over the right frontal lobe measuring up to 1.4 cm. the subdural in this region measured up to 1.4 cm with a lower density collection on the prior study. Martin Jarrett MD Objective Remarks GENERAL: Awake and alert not so oriented due to aphasia did not know which hospital he was in moves all 4 extremities currently in soft restraints for his protection SKIN: Warm and dry. HEAD: Atraumatic. Normocephalic. Has dev on bilateral temporal areas EYES: Pupils equal and round. No scleral icterus. No injection or drainage. Extraocular muscles appear grossly intact ENT: No nasal bleeding or discharge. Mucous membranes pink and moist. Tongue is midline NECK: Trachea midline. No JVD. Supple CARDIOVASCULAR: Regular rate and rhythm. S1-S2 no S3 or S4 RESPIRATORY: No accessory muscle use. Clear to auscultation. Breath sounds equal bilaterally. GASTROINTESTINAL: Abdomen soft, non-tender, nondistended. Hepatic and splenic margins not palpable. MUSCULOSKELETAL: Extremities without clubbing, cyanosis, or edema. No obvious deformities. NEUROLOGICAL: Awake and alert. No obvious cranial nerve deficits. Motor grossly within normal limits. 4 out of 5 muscle strength in the arms and legs. Aphasic speech. PSYCHIATRIC: INAppropriate mood and affect; insight and judgment ABnormal. Procedures 12/21/2017 Right frontal nichol border hole with evacuation or subdural hematoma Left frontal nichol border hole with evacuation or subdural hematoma Medications and IVs Current Medications Sodium Chloride 1,000 ml @ 75 mls/hr [id number] IV Last administered on 01/01/18at 03:57; Start 12/21/17 at 11:54 Famotidine (Pepcid Inj) 20 mg Q12HR IV PUSH Last administered on 12/26/17at 12: 18; Start 12/21/17 at 12:00; Stop 12/26/17 at 13:04; Status DC Ondansetron HCl (Zofran Inj) 4 mg Q6H PRN IV PUSH NAUSEA OR VOMITING; Start at 12:00 Albuterol/ Ipratropium (Duoneb Neb) 1 ampule Q4HR NEB PRN INH WHEEZING; Start 12/21/17 at 12:00 Miscellaneous Information 1 [id number] XX Last administered on 12/21/17at 12:00; Start 12/21/17 at 12:00 Chlorhexidine Gluconate (Chlorhexidine 2% Cloth) Taper DAILY@04 TOP Last administered on 01/01/18at 04:00; Start 12/22/17 at 04:00; Stop 12/18/18 at 03:59 Chlorhexidine Gluconate (Chlorhexidine 2% Cloth) 3 pack UNSCH PRN TOP HYGIENIC CARE; Start 12/21/17 at 12:00 Senna/Docusate Sodium (Rossana-Colace) 1 tab BID PO Last administered on 01/01/18 09:25; Start 12/21/17 at 21:00 Magnesium Hydroxide (Milk Of Magnesia Liq) 30 ml Q12H PRN PO Mild constipation ; Start 12/21/17 at 12:00 Sennosides (Senokot) 17.2 mg Q12H PRN PO Moderate constipation; Start 12/21/17 at 12:00 Bisacodyl (Dulcolax Supp) 10 mg DAILY PRN RECTAL SEVERE CONSITIPATION; Start at 12:00 Lactulose (Lactulose Liq) 30 ml DAILY PRN PO SEVERE CONSITIPATION; Start at 12:00 Lactulose (Lactulose Liq) 30 ml DAILY PO Last administered on 01/01/18 09:25; Start 12/22/17 at 09:00 Levetriacetam 500 mg/Sodium Chloride 105 ml @ 420 mls/hr Q12HR IV Last administered on 01/01/18 09:25; Start 12/21/17 at 21:00 Rifaximin (Xifaxan) 550 mg BID PO Last administered on 01/01/18 09:25; Start at 21:00 Atorvastatin Calcium (Lipitor) 40 mg HS PO Last administered on 12/31/17at 21:01 ; Start 12/21/17 at 21:00 Metoprolol Tartrate (Lopressor) 25 mg Q12HR PO Last administered on 01/01/18 09 :25; Start 12/21/17 at 21:00 Cefazolin Sodium (Ancef Inj) 2,000 mg STK-MED ONCE .ROUTE ; Start 12/21/17 at 12 :52; Stop 12/21/17 at 12:53; Status DC Thrombin (Thrombin Top Soln) 10,000 units STK-MED ONCE .ROUTE Last administered on 12/21/17at 20:36; Start 12/21/17 at 12:52; Stop 12/21/17 at 12:53 ; Status DC Gelatin (Gelfoam 100 Top) 1 foam STK-MED ONCE .ROUTE Last administered on at 20:36; Start 12/21/17 at 12:52; Stop 12/21/17 at 12:53; Status DC Gentamicin Sulfate (Gentamicin Inj) 240 mg STK-MED ONCE .ROUTE ; Start 12/21/17 at 12:52; Stop 12/21/17 at 12:53; Status DC Sodium Chloride 250 ml @ As Directed STK-MED ONCE .ROUTE ; Start 12/21/17 at 12 :52; Stop 12/21/17 at 12:53; Status DC Vancomycin HCl (Vancomycin Inj) 1,000 mg STK-MED ONCE .ROUTE ; Start 12/21/17 at 12:54; Stop 12/21/17 at 12:55; Status DC Microfibriller Collagen Hemostat (Avitene Bandage) 1 bandage STK-MED ONCE .ROUTE Last administered on 12/21/17at 20:36; Start 12/21/17 at 15:19; Stop at 15:20; Status DC Lidocaine/ Epinephrine (Xylocaine-Epi 1%-1:100,000 Inj) 30 ml STK-MED ONCE .ROUTE Last administered on 12/21/17at 20:36; Start 12/21/17 at 15:19; Stop at 15:20; Status DC Dexamethasone Sodium Phosphate (Decadron Inj) 20 mg STK-MED ONCE .ROUTE ; Start 12/21/17 at 15:19; Stop 12/21/17 at 15:20; Status DC Cefazolin Sodium/ Dextrose 50 ml @ As Directed STK-MED ONCE .ROUTE Last administered on 12/21/17at 20:32; Start 12/21/17 at 20:30; Stop 12/21/17 at 20:31 ; Status DC Levetriacetam (Keppra Inj) 1,000 mg STK-MED ONCE IV Last administered on at 20:44; Start 12/21/17 at 20:39; Stop 12/21/17 at 20:40; Status DC Fentanyl Citrate (fentaNYL INJ) 200 mcg STK-MED ONCE .ROUTE ; Start 12/21/17 at 21:48; Stop 12/21/17 at 21:49; Status DC Sugammadex Sodium (Bridion Inj) 200 mg STK-MED ONCE IV PUSH ; Start 12/21/17 at 21:48; Stop 12/21/17 at 21:49; Status DC Miscellaneous Information ALL NURSING DEPARTME... UNSCH PRN .XX SEE LABEL COMMENTS; Start 12/21/17 at 22:00; Stop 12/22/17 at 21:59; Status DC Labetalol HCl (*TRANDATE INJ PERIprocedural Use ONLY) 100 mg STK-MED ONCE .ROUTE Last administered on 12/21/17at 22:12; Start 12/21/17 at 22:12; Stop at 22:13; Status DC Nicardipine HCl 25 mg/Sodium Chloride 250 ml @ 50 mls/hr TITRATE PRN IV Blood Pressure Management Last administered on 12/25/17at 06:55; Start 12/22/17 at 04: 00; Stop 12/27/17 at 16:39; Status DC Flumazenil (Romazicon Inj) 0.2 mg Q1M PRN IV PUSH SEE LABEL COMMENTS; Start at 16:00 Lorazepam (Ativan) 1 mg Q4H PRN PO CIWA 8 - 10; Start 12/22/17 at 16:00 Lorazepam (Ativan Inj) 1 mg Q4H PRN IV PUSH CIWA 8 - 10 Last administered on at 06:10; Start 12/22/17 at 16:00 Lorazepam (Ativan) 2 mg Q2H PRN PO CIWA 11-14 Last administered on 12/24/17at 20 :44; Start 12/22/17 at 16:00 Lorazepam (Ativan Inj) 2 mg Q2H PRN IV PUSH CIWA 11-14 Last administered on at 21:59; Start 12/22/17 at 16:00 Lorazepam (Ativan Inj) 2 mg Q1H PRN IV PUSH CIWA 15-20 Last administered on at 21:29; Start 12/22/17 at 16:00 Lorazepam (Ativan Inj) 2 mg Q15M PRN IV PUSH CIWA > 20 Last administered on at 23:08; Start 12/22/17 at 16:00 Potassium Chloride 100 ml @ 50 mls/hr Q2H PRN IV For Potassium 2.8 - 3.2 mEq/ L Last administered on 12/27/17at 07:52; Start 12/22/17 at 16:00 Potassium Chloride 100 ml @ 50 mls/hr Q2H PRN IV For Potassium 2.8 - 3.2 mEq/ L Last administered on 12/26/17at 20:14; Start 12/22/17 at 16:00 Potassium Bicarb/ Potassium Chloride (K-Lyte Cl Eff) 50 meq UNSCH PRN PO For Potassium 3.3 - 3.5 mEq/L Last administered on 12/22/17at 16:36; Start 12/22/17 at 16:00 Potassium Chloride 100 ml @ 25 mls/hr UNSCH PRN IV For Potassium 3.3 - 3.5 mEq /L; Start 12/22/17 at 16:00 Potassium Chloride 100 ml @ 50 mls/hr Q2H PRN IV For Potassium 3.3 - 3.5 mEq/L ; Start 12/22/17 at 16:00 Magnesium Sulfate 4 gm/Sodium Chloride 100 ml @ 50 mls/hr UNSCH PRN IV For Magnesium 0.9 - 1.1 mg/dL Last administered on 12/31/17at 09:45; Start 12/22/17 at 16:00 Magnesium Oxide (Mag-Ox) 800 mg UNSCH PRN PO For Magnesium 1.2 - 1.6 mg/dL; Start 12/22/17 at 16:00 Magnesium Sulfate 2 gm/Sodium Chloride 100 ml @ 50 mls/hr UNSCH PRN IV For Magnesium 1.2 - 1.6 mg/dL; Start 12/22/17 at 16:00 Potassium Phosphate (K-Phos) 2,000 mg Q4H PRN PO For Phosphorus < 2.5 mg/dL Last administered on 12/31/17at 10:48; Start 12/22/17 at 16:00 Sodium Phosphate 30 mmol/Sodium Chloride 250 ml @ 42 mls/hr UNSCH PRN IV For Phosphorus < 2.5 mg/dL; Start 12/22/17 at 16:00 Potassium Phosphate (K-Phos) 2,000 mg UNSCH PRN PO/TUBE SEE LABEL COMMENTS; Start 12/22/17 at 16:00 Potassium Phosphate 30 mmol/ Sodium Chloride 260 ml @ 42 mls/hr UNSCH PRN IV SEE LABEL COMMENTS Last administered on 12/31/17 09:45; Start 12/22/17 at 16:00 Ziprasidone (Geodon Inj) 20 mg Q12H PRN IM SEVERE AGITATION Last administered on 12/31/17at 23:37; Start 12/25/17 at 10:00 Enalaprilat (Vasotec Inj) 2.5 mg Q4H PRN IV PUSH SBP > 160 Last administered on 12/30/17at 04:10; Start 12/25/17 at 11:00 Metoprolol Tartrate (Lopressor Inj) 5 mg STK-MED ONCE .ROUTE Last administered on 12/25/17 11:17; Start 12/25/17 at 11:15; Stop 12/25/17 at 11:16; Status DC Metoprolol Tartrate (Lopressor Inj) 5 mg Q3H PRN IV PUSH Pulse rate > 130 Last administered on 12/25/17at 11:17; Start 12/25/17 at 12:15; Stop 12/25/17 at 12:46 ; Status DC Metoprolol Tartrate (Lopressor Inj) 5 mg Q1H PRN IV PUSH Pulse rate > 130 Last administered on 12/25/17at 13:15; Start 12/25/17 at 13:00; Stop 12/27/17 at 16:39 ; Status DC Dexmedetomidine HCl 200 mcg/ Sodium Chloride 52 ml @ 2.9 mls/hr TITRATE PRN IV SEDATION Last administered on 12/27/17at 06:55; Start 12/25/17 at 16:00; Stop 12/27/17 at 16:39; Status DC Famotidine (Pepcid) 20 mg BID PO Last administered on 01/01/18 09:25; Start at 21:00 Nifedipine (Procardia Xl) 30 mg DAILY PO Last administered on 01/01/18 09:26; Start 12/27/17 at 09:00 Nifedipine (Procardia Xl) 30 mg ONCE ONCE PO Last administered on 12/26/17at 16 :54; Start 12/26/17 at 15:45; Stop 12/26/17 at 16:05; Status DC Quetiapine Fumarate (SEROquel) 50 mg BID PO Last administered on 12/28/17at 08: 38; Start 12/26/17 at 21:00; Stop 12/28/17 at 09:37; Status DC Lidocaine HCl (Xylocaine-Mpf 1% Inj) 10 ml STK-MED ONCE OTHER ; Start 12/21/17 at 12:00; Stop 12/26/17 at 16:09; Status DC Rocuronium [place] (Zemuron Inj) 50 mg STK-MED ONCE IV PUSH ; Start 12/21/17 at 12:00; Stop 12/26/17 at 16:09; Status DC Phenylephrine HCl (Neosynephrine/ NS 1000 Mcg/10ml Syr) 1,000 mcg STK-MED ONCE IV ; Start 12/21/17 at 12:00; Stop 12/26/17 at 16:09; Status DC Ephedrine Sulfate (ePHEDrine/NS 25 MG/5 ML SYR) 25 mg STK-MED ONCE IV ; Start at 12:00; Stop 12/26/17 at 16:09; Status DC Metoprolol Tartrate (Lopressor Inj) 5 mg STK-MED ONCE IV ; Start 12/21/17 at 12: 00; Stop 12/26/17 at 16:09; Status DC Hydralazine HCl (Apresoline Inj) 20 mg STK-MED ONCE IV ; Start 12/21/17 at 12:00 ; Stop 12/26/17 at 16:09; Status DC Esmolol HCl (Brevibloc Bolus Inj) 100 mg STK-MED ONCE IV ; Start 12/21/17 at 12: 00; Stop 12/26/17 at 16:09; Status DC Dexamethasone Sodium Phosphate (Decadron Inj) 4 mg STK-MED ONCE IV ; Start 12/21 at 12:00; Stop 12/26/17 at 16:09; Status DC Ondansetron HCl (Zofran Inj) 4 mg STK-MED ONCE IV ; Start 12/21/17 at 12:00; Stop 12/26/17 at 16:09; Status DC Propofol (Diprivan 200 Mg/20 ml Inj) 200 mg STK-MED ONCE IV ; Start 12/21/17 at 12:00; Stop 12/26/17 at 16:09; Status DC Sodium Chloride (Sodium Chloride 0.9% Inj) 20 ml STK-MED ONCE IV ; Start at 12:00; Stop 12/26/17 at 16:09; Status DC Norepinephrine Bitartrate (Levophed Inj) 4 mg STK-MED ONCE .ROUTE Last administered on 12/27/17at 09:00; Start 12/27/17 at 09:15; Stop 12/27/17 at 09:16 ; Status DC Quetiapine Fumarate (SEROquel) 50 mg HS PO Last administered on 12/31/17at 21:01 ; Start 12/28/17 at 21:00 Dexmedetomidine HCl 200 mcg/ Sodium Chloride 50 ml @ 2.77 mls/hr TITRATE PRN IV Desired RASS Last administered on 12/29/17at 02:05; Start 12/28/17 at 18:30; Stop 12/29/17 at 12:10; Status DC Potassium Chloride (KCl) 20 meq Q12HR PO Last administered on 12/31/17at 10:47; Start 12/28/17 at 21:00; Stop 12/31/17 at 20:59; Status DC Quetiapine Fumarate (SEROquel) 25 mg DAILY PO Last administered on 01/01/18at 09: 26; Start 12/30/17 at 09:00 Acetaminophen (Tylenol) 650 mg Q4H PRN PO fever/ackerman Last administered on at 18:15; Start 12/30/17 at 17:45 Piperacillin Sod/ Tazobactam Sod 100 ml @ 200 mls/hr Q8H IV Last administered on 01/01/18at 04:00; Start 12/30/17 at 20:00 Vancomycin HCl 1000 mg/Sodium Chloride 250 ml @ 250 mls/hr ONCE ONCE IV Last administered on 12/30/17at 20:05; Start 12/30/17 at 19:00; Stop 12/30/17 at 19:59 ; Status DC Pharmacy Profile Note 0 ml @ 0 mls/hr UNSCH OTHER ; Start 12/30/17 at 17:45 Vancomycin HCl 1000 mg/Sodium Chloride 250 ml @ 250 mls/hr Q24H IV Last administered on 12/31/17at 16:17; Start 12/31/17 at 14:00 Miscellaneous Information SPECIFIC LAB TO BE DRAWN:[facility]... ONCE ONCE .XX ; Start 01/03/18 at 13:45; Stop 01/03/18 at 13:46 A/P Problem List: (1) Bilateral subdural hematomas ICD Code: S06.5X9A - Traumatic subdural hemorrhage with loss of consciousness of unspecified duration, initial encounter (2) HTN (hypertension) ICD Code: I10 - Essential (primary) hypertension Assessment and Plan Mr. East is a 71-year-old -Spanish gentleman who originally presented to [facility] emergency department with altered mental status and confusion. He has chronic expressive aphasia and right-sided deficit from a previous stroke. CT scan indicated large bilateral subdural fluid collection. Subsequently after consulting with neurosurgeon patient was brought to [facility] and underwent emergent decompressive surgery for subdural hematoma. He was managed in the ICU. He was given [facility] protocol for alcohol abuse. His care was transferred to hospitalist service on 12/26/2017. Large bilateral subdural hematoma History of previous stroke Status post bilateral frontal NICHOL hole with evacuation of subdural hematoma. Drains are discontinued by neurosurgery. Neurosurgery following. Continue Lipitor 40 mg nightly. Alcohol withdrawal Agitation Patient is currently on [facility] protocol d/c precedex. Seroquel 50 mg QHS per neurosurgery. Add Seroquel 25 mg every morning Hypertension Nifedipine 30 mg daily with holding parameters. Metoprolol 25mg BID with holding parameters. Hypokalemia Potassium 3.2. Continue with PO KCL. Mild hypothermia - currently on Gudelia hugger. Temp is normalizing. -Off bear hugger Full code. SCDs. HAD FEVERS 3-30 STARTED ON VANCO AND ZOSYN- BC PENDING- UA POSITIVE--CHEST XRAY IS NEGATIVE SOFT RESTRAINTS FOR HIS PROTECTION Patient's son wants him to go to a rehab in [place]. Speech recommends Pureed diet with thin liquids. Case management for placement at SNF versus RESIDENTIAL versus back to [facility] Discharge Planning Pending case management ability to find a safe place for discharge Jerman Kumar DO Jan 01, 2018 10:59
[2018-01-01] MEDS: VANCOMYCIN 1,000 MG/NS 250 ML IV SCH ×4 (14:00→14:13)
--- NOTE | 2018-01-01 14:25 | HHI.NSPN ---
History Chief Complaint: Unable to obtain due to patient's mental status. Interval History Mr. East is a 71 year old male who presented to [facility] as a transfer from [facility] for evaluation of subdural hematoma. History cannot be obtained from the patient and no family at bedside thus history obtained from the patient's chart. Mr. Oquendo has a history of chronic aphasia and right side weakness from a prior stroke. He also has a history of chronic etoh abuse. He presented to [facility] ED with confusion and AMS. A CT Brain had shown large bilateral subdural fluid collections with mass effect of the brain. A neurosurgical evaluation was requested for surgical decompression. 12/22: doing well, appears much more awake, talking but speech is confused, not really following commands, smiling and very pleasant. bilateral subdural drains in place 12/26: Currently mildly sedated on Precedex due to mild agitation and restlessness. His subdural drains were removed over the weekend. Otherwise nurse reports no significant overall changes to neuro checks. Chronic aphasia. 12/27: patient seen and examined this am during rounds. received multiple doses of Ativan last night for agitation, currently also on Precedex drip. Currently appearing comatose due to heavy sedatives. Hypotensive with 77 systolic bp. 12/28: more awake today, confused, baseline aphasic, moves all four ext. Restless and agitated overnight. 12/29: currently sedated on precedex due to agitation and restlessness 12/31: The patient is awake and alert in bed. He is in four-point soft restraints due to agitation. He is not on any sedation. He is confused and disorientated except to person. He is trying to sit up. He readily interacts. He spontaneously moves all extremities and follows commands and his muscle strength is good. 01/01: When seen this afternoon the patient is awake in bed. He is in four- point soft restraints. He denies any headache or dizziness but starts to ramble when asked other questions for a review of systems. He remains confused and is only oriented to person. He spontaneously moves all extremities and follows commands. His muscle strength is good. System Review Comments Unable to obtain due to patient's mental status. Exam Results 12/30/17 12/30/17 12/31/17 12/31/17 01/01/18 01/01/18 06:00 18:00 06:00 18:00 06:00 18:00 Intake Total 400 ml 1550 ml 420 ml 2516 ml Output Total 625 ml 700 ml 350 ml 3000 ml 1750 ml Balance -625 ml -300 ml 1200 ml -2580 ml 766 ml Intake Oral 400 ml 420 ml 720 ml IV Total 1550 ml 1796 ml Output Urine Total 625 ml 700 ml 350 ml 3000 ml 1750 ml Stool Total 0 ml # Voids 1 2 # Bowel Movements 2 2 0 0 0 Vital Signs Date Time Temp Pulse Resp B/P (MAP) Pulse Ox O2 Delivery O2 Flow Rate FiO2 01/01/18 04:00 103 01/01/18 04:00 97.4 108 24 132/80 (97) 96 01/01/18 00:00 102 01/01/18 00:00 98.7 105 26 117/72 (87) 96 12/31/17 20:00 98.3 120 24 124/72 (89) 98 12/31/17 20:00 122 12/31/17 19:47 94 21 12/31/17 18:00 107 12/31/17 16:00 98.5 121 18 115/66 (82) 99 12/31/17 16:00 121 12/31/17 14:00 118 12/31/17 12:00 98.8 105 34 125/70 (88) 97 12/31/17 12:00 105 12/31/17 10:00 103 12/31/17 08:00 99 12/31/17 08:00 98.6 99 35 127/74 (91) 100 12/31/17 06:00 105 12/31/17 04:00 99.4 95 24 123/76 (92) 96 12/31/17 04:00 95 12/31/17 02:00 101 12/31/17 00:00 103 12/31/17 00:00 99.1 103 17 124/70 (88) 100 12/30/17 22:00 116 12/30/17 20:00 99.6 120 25 138/80 (99) 99 12/30/17 20:00 120 12/30/17 18:45 100.8 12/30/17 18:00 101.5 12/30/17 18:00 128 12/30/17 16:00 99.3 128 20 126/80 (95) 97 12/30/17 16:00 126 12/30/17 14:00 102 12/30/17 12:00 100.0 102 20 102/62 (75) 100 12/30/17 12:00 102 12/30/17 10:00 104 12/30/17 08:00 99.7 108 23 142/97 (112) 100 12/30/17 08:00 108 12/30/17 06:00 94 12/30/17 04:00 99.7 98 16 175/94 (121) 98 12/30/17 04:00 98 12/30/17 02:00 91 12/30/17 00:00 88 12/30/17 00:00 99.5 88 20 155/87 (109) 100 12/29/17 22:00 101 12/29/17 20:00 94 12/29/17 20:00 99.3 94 19 152/91 (111) 100 12/29/17 18:00 98 12/29/17 16:00 99.7 98 16 146/80 (102) 100 12/29/17 16:00 101 Physical Examination GENERAL: Awake & alert in bed looking around. In 4-point soft restraints. Readily interacts. No apparent distress. HEENT: Normocephalic. Bilateral frontal nichol holes w/dev intact w/o any drainage, erythema or streaking noted. Pupils 2 mm reactive, EOM appear intact. MMM & pink, tongue midline. MUSCULOSKELETAL: PEREZ spontaneously & purposefully. No evident clubbing or deformity. NEUROLOGICAL: AA&O x1, person only. Speech garbled and inappropriate, confused. Expressive aphasia. CN II through XII appear grossly intact. Pupils 2 mm reactive, EOM appear intact. Tongue midline. Spontaneously moves all extremities purposefully. Follows commands with all extremities. Muscle strength appears strong. Lab, Micro, Other Results Recent Impressions Chest X-Ray 12/30/17 0000 Signed Impressions: Service Date/Time: Saturday, December 30, 2017 18:05 - CONCLUSION: No acute disease Rich Kwon MD Laboratory Tests Test 12/30/17 13:35 12/30/17 18:45 12/31/17 04:22 01/01/18 03:53 White Blood Count 18.0 TH/MM3 17.0 TH/MM3 13.3 TH/MM3 Red Blood Count 3.51 MIL/MM3 3.51 MIL/MM3 3.35 MIL/MM3 Hemoglobin 10.4 GM/DL 10.4 GM/DL 9.9 GM/DL Hematocrit 31.8 % 31.7 % 30.1 % Mean Corpuscular Volume 90.4 FL 90.2 FL 89.8 FL Mean Corpuscular Hemoglobin 29.6 PG 29.5 PG 29.4 PG Mean Corpuscular Hemoglobin Concent 32.7 % 32.7 % 32.8 % Red Cell Distribution Width 15.2 % 15.6 % 15.9 % Platelet Count 184 TH/MM3 184 TH/MM3 181 TH/MM3 Mean Platelet Volume 9.0 FL 9.2 FL 9.1 FL Neutrophils (%) (Auto) 73.1 % 74.2 % 73.0 % Lymphocytes (%) (Auto) 16.2 % 13.7 % 13.9 % Monocytes (%) (Auto) 10.6 % 11.9 % 12.6 % Eosinophils (%) (Auto) 0.0 % 0.0 % 0.0 % Basophils (%) (Auto) 0.1 % 0.2 % 0.5 % Neutrophils # (Auto) 13.2 TH/MM3 12.6 TH/MM3 9.7 TH/MM3 Lymphocytes # (Auto) 2.9 TH/MM3 2.3 TH/MM3 1.9 TH/MM3 Monocytes # (Auto) 1.9 TH/MM3 2.0 TH/MM3 1.7 TH/MM3 Eosinophils # (Auto) 0.0 TH/MM3 0.0 TH/MM3 0.0 TH/MM3 Basophils # (Auto) 0.0 TH/MM3 0.0 TH/MM3 0.1 TH/MM3 CBC Comment DIFF FINAL DIFF FINAL DIFF FINAL Differential Comment Blood Urea Nitrogen 6 MG/DL 6 MG/DL 7 MG/DL Creatinine 0.88 MG/DL 0.89 MG/DL 0.89 MG/DL Random Glucose 134 MG/DL 135 MG/DL 148 MG/DL Total Protein 7.3 GM/DL 7.1 GM/DL 7.3 GM/DL Albumin 2.7 GM/DL 2.6 GM/DL 2.4 GM/DL Calcium Level 8.3 MG/DL 8.4 MG/DL 8.8 MG/DL Phosphorus Level 1.8 MG/DL 1.4 MG/DL 2.1 MG/DL Magnesium Level 0.9 MG/DL 0.9 MG/DL 1.8 MG/DL Alkaline Phosphatase 90 U/L 164 U/L 111 U/L Aspartate Amino Transf (AST/SGOT) 24 U/L 34 U/L 35 U/L Alanine Aminotransferase (ALT/SGPT) 15 U/L 18 U/L 21 U/L Total Bilirubin 0.8 MG/DL 0.8 MG/DL 0.7 MG/DL Sodium Level 141 MEQ/L 140 MEQ/L 140 MEQ/L Potassium Level 3.4 MEQ/L 3.3 MEQ/L 3.6 MEQ/L Chloride Level 104 MEQ/L 104 MEQ/L 105 MEQ/L Carbon Dioxide Level 26.2 MEQ/L 26.1 MEQ/L 26.4 MEQ/L Anion Gap 11 MEQ/L 10 MEQ/L 9 MEQ/L Estimat Glomerular Filtration Rate 103 ML/MIN 102 ML/MIN 102 ML/MIN Hemoglobin A1c 5.6 % Free Thyroxine 1.46 NG/DL Thyroid Stimulating Hormone 3rd Gen 0.781 uIU/ML Urine Color YELLOW Urine Turbidity HAZY Urine pH 7.5 Urine Specific [place] 1.013 Urine Protein TRACE mg/dL Urine Glucose (UA) NEG mg/dL Urine Ketones TRACE mg/dL Urine Occult Blood SMALL Urine Nitrite NEG Urine Bilirubin NEG Urine Urobilinogen 2.0 MG/DL Urine Leukocyte Esterase MOD Urine RBC 11 /hpf Urine WBC 58 /hpf Urine Squamous Epithelial Cells <1 /hpf Urine Amorphous Sediment RARE Urine Bacteria RARE /hpf Microscopic Urinalysis Comment CULTURE INDICATED Medical Decision Making Impression and Plan Impression: 71 y/o male s/p bilateral frontal nichol hole for evacuation of subdural hygroma , improved per f/u CT Brain chronic aphasia with chronic right 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 Afebrile the past 24 hrs. Tachycardia. Reviewed labs for today. Improvement of leukocytosis. Drop in haemoglobin level. Sodium 140. Resolution of hypokalemia. Alk phos WNL. Plan: Primary management per Hospitalist. Neuro checks. Stat CT brain for any decline in neuro status. Recommend avoiding heavy sedatives. Mobilise patient w/assistance. Continue therapy & rehab efforts. D/c dev . Delvis Matute Jan 01, 2018 14:25
[2018-01-01] MEDS: ZIPRASIDONE MESYLATE 20 MG VIAL IM PRN (15:00)
[2018-01-01] MEDS: LORazepam 2 MG/ML VIAL IV PUSH PRN (19:36)
[2018-01-01] MEDS: ATORVASTATIN 40 MG TAB PO SCH (20:06)
[2018-01-02] VITALS (7 sets, daily range): BP systolic 129–153; BP diastolic 79–88; PULSE 74–92; RESP 17–20; TEMP 97.1–99.8; O2SAT 96–97
[2018-01-02] MEDS: CHLORHEXIDINE GLUCONATE 2 % 1 PACK (2 CLOTHS) TOP SCH (03:01)
[2018-01-02] MEDS: PIPERACIL-TAZO 4.5 GM PREMIX 100 ML IV SCH (04:14)
[2018-01-02] MEDS: RIFAXIMIN 550 MG TAB PO SCH ×2 (09:25→23:14)
[2018-01-02] MEDS: NIFEdipine 30 MG SUSTAINED RELEASE TAB PO SCH (09:25)
[2018-01-02] MEDS: LACTULOSE SYRUP 20 GM/30 ML CUP PO SCH (09:25)
[2018-01-02] MEDS: DOCUSATE SODIUM 50 MG/SENNA 8.6 MG TAB PO SCH ×2 (09:25→21:00)
[2018-01-02] MEDS: METOPROLOL TARTRATE 25 MG TAB PO SCH ×2 (09:25→23:14)
[2018-01-02] MEDS: FAMOTIDINE 20 MG TAB PO SCH ×2 (09:25→23:14)
[2018-01-02] MEDS: levETIRAcetam INJ 500 MG in SODIUM CHLORIDE 0.9% INJ 100 ML IV SCH ×2 (09:26→23:15)
[2018-01-02] MEDS: SODIUM CHLOR 0.9% 1000 ML INJ 1,000 ML IV SCH ×2 (09:26→23:15)
[2018-01-02] MEDS: QUEtiapine FUMARATE 25 MG TAB PO SCH ×2 (09:26→23:14)
--- NOTE | 2018-01-02 09:37 | HHI.PR ---
Subjective Remarks in no acute distress. afebrile. noted that was on four-point restraints. d/w the RN and no acute issues over night. Objective Vitals Vital Signs Date Time Temp Pulse Resp B/P (MAP) Pulse Ox O2 Delivery O2 Flow Rate FiO2 01/02/18 08:00 97.4 91 20 136/88 (104) 97 01/02/18 04:10 99.2 92 18 153/86 (108) 96 01/02/18 00:37 97.1 91 18 142/80 (100) 96 01/02/18 00:35 91 01/01/18 20:00 91 01/01/18 20:00 98.4 91 20 143/92 (109) 100 01/01/18 16:00 98.5 106 28 137/84 (101) 98 01/01/18 16:00 106 01/01/18 15:55 100 21 01/01/18 12:00 98.5 100 31 127/78 (94) 100 01/01/18 12:00 100 I/O 01/01/18 01/01/18 01/01/18 01/02/18 01/02/18 01/02/18 07:00 15:00 23:00 07:00 15:00 23:00 Intake Total 1961 ml 455 ml 605 ml Output Total 1750 ml 1250 ml 1200 ml Balance 211 ml 455 ml -645 ml -1200 ml Intake Oral 720 ml 400 ml IV Total 1241 ml 455 ml 205 ml Output Urine Total 1750 ml 1250 ml 1200 ml # Voids 1 # Bowel Movements 0 0 Result Diagram: 01/01/18 0353 01/01/18 0353 Imaging Last Impressions Chest X-Ray 12/30/17 0000 Signed Impressions: Service Date/Time: Saturday, December 30, 2017 18:05 - CONCLUSION: No acute disease Rich Kwon MD Head CT 12/24/17 0600 Signed Impressions: Service Date/Time: Sunday, December 24, 2017 02:02 - CONCLUSION: 1. Interval placement of bilateral subdural drainage catheters with decrease in the size of the bilateral subdural collections. 2. New area of acute high-density hemorrhage over the right frontal lobe measuring up to 1.4 cm. the subdural in this region measured up to 1.4 cm with a lower density collection on the prior study. Martin Jarrett MD Objective Remarks GENERAL: This is a well-nourished, well-developed patient, in no apparent distress. CARDIOVASCULAR: Regular rate and regular rhythm without murmurs, gallops, or rubs. RESPIRATORY: Clear to auscultation. Breath sounds equal bilaterally. No wheezes , rales, or rhonchi. GASTROINTESTINAL: Abdomen soft, non-tender, nondistended. Normal, active bowel sounds MUSCULOSKELETAL: Extremities without clubbing, cyanosis, or edema. NEURO: awake but confused. Procedures 12/21/2017 Right frontal nichol border hole with evacuation or subdural hematoma Left frontal nichol border hole with evacuation or subdural hematoma Medications and IVs Inpatient Medications Acetaminophen (Tylenol) 650 mg Q4H PRN PO fever/ackerman Last administered on at 18:15; Start 12/30/17 at 17:45 Albuterol/ Ipratropium (Duoneb Neb) 1 ampule Q4HR NEB PRN INH WHEEZING; Start 12/21/17 at 12:00 Atorvastatin Calcium (Lipitor) 40 mg HS PO Last administered on 01/01/18at 20:06 ; Start 12/21/17 at 21:00 Bisacodyl (Dulcolax Supp) 10 mg DAILY PRN RECTAL SEVERE CONSITIPATION; Start at 12:00 Chlorhexidine Gluconate (Chlorhexidine 2% Cloth) 3 pack UNSCH PRN TOP HYGIENIC CARE; Start 12/21/17 at 12:00 Dexmedetomidine HCl 200 mcg/ Sodium Chloride 50 ml @ 2.77 mls/hr TITRATE PRN IV Desired RASS Last administered on 12/29/17at 02:05; Start 12/28/17 at 18:30; Stop 12/29/17 at 12:10; Status DC Enalaprilat (Vasotec Inj) 2.5 mg Q4H PRN IV PUSH SBP > 160 Last administered on 12/30/17at 04:10; Start 12/25/17 at 11:00 Famotidine (Pepcid Inj) 20 mg Q12HR IV PUSH Last administered on 12/26/17at 12: 18; Start 12/21/17 at 12:00; Stop 12/26/17 at 13:04; Status DC Famotidine (Pepcid) 20 mg BID PO Last administered on 01/01/18at 20:05; Start at 21:00 Flumazenil (Romazicon Inj) 0.2 mg Q1M PRN IV PUSH SEE LABEL COMMENTS; Start at 16:00 Lactulose (Lactulose Liq) 30 ml DAILY PO Last administered on 01/01/18at 09:25; Start 12/22/17 at 09:00 Levetriacetam 500 mg/Sodium Chloride 105 ml @ 420 mls/hr Q12HR IV Last administered on 01/01/18at 20:06; Start 12/21/17 at 21:00 Lorazepam (Ativan Inj) 2 mg Q15M PRN IV PUSH CIWA > 20 Last administered on at 23:08; Start 12/22/17 at 16:00 Lorazepam (Ativan) 2 mg Q2H PRN PO CIWA 11-14 Last administered on 12/24/17at 20 :44; Start 12/22/17 at 16:00 Magnesium Hydroxide (Milk Of Magnesia Liq) 30 ml Q12H PRN PO Mild constipation ; Start 12/21/17 at 12:00 Magnesium Oxide (Mag-Ox) 800 mg UNSCH PRN PO For Magnesium 1.2 - 1.6 mg/dL; Start 12/22/17 at 16:00; Stop 01/01/18 at 22:43; Status DC Magnesium Sulfate 2 gm/Sodium Chloride 100 ml @ 50 mls/hr UNSCH PRN IV For Magnesium 1.2 - 1.6 mg/dL; Start 12/22/17 at 16:00; Stop 01/01/18 at 22:43; Status DC Magnesium Sulfate 4 gm/Sodium Chloride 100 ml @ 50 mls/hr UNSCH PRN IV For Magnesium 0.9 - 1.1 mg/dL Last administered on 12/31/17at 09:45; Start 12/22/17 at 16:00; Stop 01/01/18 at 22:43; Status DC Metoprolol Tartrate (Lopressor Inj) 5 mg Q1H PRN IV PUSH Pulse rate > 130 Last administered on 12/25/17at 13:15; Start 12/25/17 at 13:00; Stop 12/27/17 at 16:39 ; Status DC Metoprolol Tartrate (Lopressor) 25 mg Q12HR PO Last administered on 01/01/18at 20 :06; Start 12/21/17 at 21:00 Miscellaneous Information SPECIFIC LAB TO BE DRAWN:VA... ONCE ONCE .XX ; Start 01/03/18 at 13:45; Stop 01/03/18 at 13:46 Nicardipine HCl 25 mg/Sodium Chloride 250 ml @ 50 mls/hr TITRATE PRN IV Blood Pressure Management Last administered on 12/25/17at 06:55; Start 12/22/17 at 04: 00; Stop 12/27/17 at 16:39; Status DC Nifedipine (Procardia Xl) 30 mg ONCE ONCE PO Last administered on 12/26/17at 16 :54; Start 12/26/17 at 15:45; Stop 12/26/17 at 16:05; Status DC Ondansetron HCl (Zofran Inj) 4 mg Q6H PRN IV PUSH NAUSEA OR VOMITING; Start at 12:00 Pharmacy Profile Note 0 ml @ 0 mls/hr UNSCH OTHER ; Start 12/30/17 at 17:45 Piperacillin Sod/ Tazobactam Sod 100 ml @ 200 mls/hr Q8H IV Last administered on 01/02/18at 04:14; Start 12/30/17 at 20:00 Potassium Phosphate (K-Phos) 2,000 mg UNSCH PRN PO/TUBE SEE LABEL COMMENTS; Start 12/22/17 at 16:00; Stop 01/01/18 at 22:43; Status DC Potassium Phosphate 30 mmol/ Sodium Chloride 260 ml @ 42 mls/hr UNSCH PRN IV SEE LABEL COMMENTS Last administered on 12/31/17at 09:45; Start 12/22/17 at 16:00 ; Stop 01/01/18 at 22:43; Status DC Potassium Bicarb/ Potassium Chloride (K-Lyte Cl Eff) 50 meq UNSCH PRN PO For Potassium 3.3 - 3.5 mEq/L Last administered on 12/22/17at 16:36; Start 12/22/17 at 16:00; Stop 01/01/18 at 22:43; Status DC Potassium Chloride (KCl) 20 meq Q12HR PO Last administered on 12/31/17at 10:47; Start 12/28/17 at 21:00; Stop 12/31/17 at 20:59; Status DC Quetiapine Fumarate (SEROquel) 25 mg DAILY PO Last administered on 01/01/18at 09: 26; Start 12/30/17 at 09:00 Rifaximin (Xifaxan) 550 mg BID PO Last administered on 01/01/18at 20:06; Start at 21:00 Senna/Docusate Sodium (Rossana-Colace) 1 tab BID PO Last administered on 01/01/18at 20:06; Start 12/21/17 at 21:00 Sennosides (Senokot) 17.2 mg Q12H PRN PO Moderate constipation; Start 12/21/17 at 12:00 Sodium Chloride 1,000 ml @ 75 mls/hr [id number] IV Last administered on 01/01/18at 17:17; Start 12/21/17 at 11:54 Sodium Phosphate 30 mmol/Sodium Chloride 250 ml @ 42 mls/hr UNSCH PRN IV For Phosphorus < 2.5 mg/dL; Start 12/22/17 at 16:00; Stop 01/01/18 at 22:43; Status DC Vancomycin HCl 1000 mg/Sodium Chloride 250 ml @ 250 mls/hr Q24H IV Last administered on 01/01/18at 14:00; Start 12/31/17 at 14:00 Ziprasidone (Geodon Inj) 20 mg Q12H PRN IM SEVERE AGITATION Last administered on 01/01/18at 15:00; Start 12/25/17 at 10:00 A/P Problem List: (1) Bilateral subdural hematomas ICD Code: S06.5X9A - Traumatic subdural hemorrhage with loss of consciousness of unspecified duration, initial encounter (2) HTN (hypertension) ICD Code: I10 - Essential (primary) hypertension Assessment and Plan Large bilateral subdural hematoma History of previous stroke Status post bilateral frontal NICHOL hole with evacuation of subdural hematoma. Neurosurgery following. Continue Lipitor and Keppra. Alcohol withdrawal Agitation Patient is currently on [facility] protocol Seroquel 50 mg QHS per neurosurgery.Added Seroquel 25 mg every morning Hypertension Nifedipine 30 mg daily with holding parameters. Metoprolol 25mg BID with holding parameters. Hypokalemia Potassium 3.2. Continue with PO KCL. Mild hypothermia -resolved. fever- has resolved.blood cultures negative/ CXR negative- will stop IV antibiotics and monitor. Full code. SCDs. Discharge Planning dc planning in progress. patient is still on four-point restraints. Macy Bartlett MD Jan 02, 2018 09:37
--- NOTE | 2018-01-02 16:47 | HHI.NSPN ---
(Amparo Longoria) Note Status Status: Progress Note (Amparo Longoria) Interval History Interval History Mr. East is a 71 year old male who presented to [place] as a transfer from [facility] for evaluation of subdural hematoma. History cannot be obtained from the patient and no family at bedside thus history obtained from the patient's chart. Mr. Oquendo has a history of chronic aphasia and right side weakness from a prior stroke. He also has a history of chronic etoh abuse. He presented to [place] ED with confusion and AMS. A CT Brain had shown large bilateral subdural fluid collections with mass effect of the brain. A neurosurgical evaluation was requested for surgical decompression. 12/22: doing well, appears much more awake, talking but speech is confused, not really following commands, smiling and very pleasant. bilateral subdural drains in place 12/26: Currently mildly sedated on Precedex due to mild agitation and restlessness. His subdural drains were removed over the weekend. Otherwise nurse reports no significant overall changes to neuro checks. Chronic aphasia. 12/27: patient seen and examined this am during rounds. received multiple doses of Ativan last night for agitation, currently also on Precedex drip. Currently appearing comatose due to heavy sedatives. Hypotensive with 77 systolic bp. 12/28: more awake today, confused, baseline aphasic, moves all four ext. Restless and agitated overnight. 12/29: currently sedated on precedex due to agitation and restlessness 01/02: awake, alert, appears more comfortable, smiling. (Amparo Longoria) Labs, Micro, & Vital Signs Results Date Time Temp Pulse Resp B/P (MAP) Pulse Ox O2 Delivery O2 Flow Rate FiO2 01/02/18 12:00 99.8 74 20 136/82 (100) 96 01/02/18 08:00 97.4 91 20 136/88 (104) 97 01/02/18 04:10 99.2 92 18 153/86 (108) 96 01/02/18 00:37 97.1 91 18 142/80 (100) 96 01/02/18 00:35 91 01/01/18 20:00 91 01/01/18 20:00 98.4 91 20 143/92 (109) 100 01/03/18 07:00 Intake Total 120 ml Balance 120 ml Constitutional Vital Signs Date Time Temp Pulse Resp B/P (MAP) Pulse Ox O2 Delivery O2 Flow Rate FiO2 01/02/18 12:00 99.8 74 20 136/82 (100) 96 01/02/18 08:00 97.4 91 20 136/88 (104) 97 01/02/18 04:10 99.2 92 18 153/86 (108) 96 01/02/18 00:37 97.1 91 18 142/80 (100) 96 01/02/18 00:35 91 01/01/18 20:00 91 01/01/18 20:00 98.4 91 20 143/92 (109) 100 01/03/18 07:00 Intake Total 120 ml Balance 120 ml (Amparo Longoria) Physical Exam General: no acute distress, comfortable in bed, appears pleasant and smiling today HEENT: Normocephalic. Nonicteric sclera. No nasal or otic drainage. Surgical wounds are healing well, clean and dry without evidence of infection. Neuro: Awake, alert, oriented to person only, aphasic. Cranial nerve examination: pupils 3 mm equal. Neck is soft and supple. Musculoskeletal:moves all four extremities, Sensory examination: localizes to pain stimuli Heart: regular rate, rhythm Resp: clear, Skin: warm, dry, no cyanosis or erythema (Amparo Longoria) Medications Current Medications Current Medications Medications (Trade) Dose Ordered Sig/Ole Route PRN Reason Start Time Stop Time Status Last Admin Dose Admin Sodium Chloride 1,000 ml @ 75 mls/hr [id number] IV 12/21/17 11:54 01/02/18 09:26 Ondansetron HCl (Zofran Inj) 4 mg Q6H PRN IV PUSH NAUSEA OR VOMITING 12/21/17 12:00 Albuterol/ Ipratropium (Duoneb Neb) 1 ampule Q4HR NEB PRN INH WHEEZING 12/21/17 12:00 Miscellaneous Information 1 [id number] XX 12/21/17 12:00 12/21/17 12:00 Chlorhexidine Gluconate (Chlorhexidine 2% Cloth) Taper DAILY@04 TOP 12/22/17 04:00 12/18/18 03:59 01/01/18 04:00 Chlorhexidine Gluconate (Chlorhexidine 2% Cloth) 3 pack UNSCH PRN TOP HYGIENIC CARE 12/21/17 12:00 Senna/Docusate Sodium (Rossana-Colace) 1 tab BID PO 12/21/17 21:00 01/02/18 09:25 Magnesium Hydroxide (Milk Of Magnesia Liq) 30 ml Q12H PRN PO Mild constipation 12/21/17 12:00 Sennosides (Senokot) 17.2 mg Q12H PRN PO Moderate constipation 12/21/17 12:00 Bisacodyl (Dulcolax Supp) 10 mg DAILY PRN RECTAL SEVERE CONSITIPATION 12/21/17 12:00 Lactulose (Lactulose Liq) 30 ml DAILY PRN PO SEVERE CONSITIPATION 12/21/17 12:00 Lactulose (Lactulose Liq) 30 ml DAILY PO 12/22/17 09:00 01/02/18 09:25 Levetriacetam 500 mg/Sodium Chloride 105 ml @ 420 mls/hr Q12HR IV 12/21/17 21:00 01/02/18 09:26 Rifaximin (Xifaxan) 550 mg BID PO 12/21/17 21:00 01/02/18 09:25 Atorvastatin Calcium (Lipitor) 40 mg HS PO 12/21/17 21:00 01/01/18 20:06 Metoprolol Tartrate (Lopressor) 25 mg Q12HR PO 12/21/17 21:00 01/02/18 09:25 Flumazenil (Romazicon Inj) 0.2 mg Q1M PRN IV PUSH SEE LABEL COMMENTS 12/22/17 16:00 Lorazepam (Ativan) 1 mg Q4H PRN PO CIWA 8 - 10 12/22/17 16:00 Lorazepam (Ativan Inj) 1 mg Q4H PRN IV PUSH CIWA 8 - 10 12/22/17 16:00 12/31/17 06:10 Lorazepam (Ativan) 2 mg Q2H PRN PO CIWA 11-14 12/22/17 16:00 12/24/17 20:44 Lorazepam (Ativan Inj) 2 mg Q2H PRN IV PUSH CIWA 11-14 12/22/17 16:00 01/01/18 19:36 Lorazepam (Ativan Inj) 2 mg Q1H PRN IV PUSH CIWA 15-20 12/22/17 16:00 12/26/17 21:29 Lorazepam (Ativan Inj) 2 mg Q15M PRN IV PUSH CIWA > 20 12/22/17 16:00 12/22/17 23:08 Ziprasidone (Geodon Inj) 20 mg Q12H PRN IM SEVERE AGITATION 12/25/17 10:00 01/01/18 15:00 Enalaprilat (Vasotec Inj) 2.5 mg Q4H PRN IV PUSH SBP > 160 12/25/17 11:00 12/30/17 04:10 Famotidine (Pepcid) 20 mg BID PO 12/26/17 21:00 01/02/18 09:25 Nifedipine (Procardia Xl) 30 mg DAILY PO 12/27/17 09:00 01/02/18 09:25 Quetiapine Fumarate (SEROquel) 50 mg HS PO 12/28/17 21:00 01/01/18 20:05 Quetiapine Fumarate (SEROquel) 25 mg DAILY PO 12/30/17 09:00 01/02/18 09:26 Acetaminophen (Tylenol) 650 mg Q4H PRN PO fever/ackerman 12/30/17 17:45 12/30/17 18:15 (Amparo Longoria) Medical Decision Making MDM Remarks 71 y/o male s/p bilateral frontal nichol hole for evacuation of subdural hygroma , improved per f/u CT Brain chronic aphasia with 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 I reviewed and agree with the findings presented. I attest that I had a [id number] encounter with the patient on the same day, and personally performed and documented my assessment and findings in the medical record. (Lewis Mae MD) Amparo Longoria Jan 02, 2018 16:47 Lewis Mae MD Jan 04, 2018 15:56
[2018-01-02] MEDS: ATORVASTATIN 40 MG TAB PO SCH (23:14)
[2018-01-03] VITALS: BP 116/74; PULSE 82; RESP 18; TEMP 98.2; O2SAT 98
[2018-01-03] MEDS: CHLORHEXIDINE GLUCONATE 2 % 1 PACK (2 CLOTHS) TOP SCH (04:00)
[2018-01-03 08:00] VITALS: BP 158/90; PULSE 88; RESP 17; TEMP 98.4; O2SAT 93
[2018-01-03] MEDS: SODIUM CHLOR 0.9% 1000 ML INJ 1,000 ML IV SCH (09:17)
[2018-01-03] MEDS: METOPROLOL TARTRATE 25 MG TAB PO SCH ×2 (09:47→21:00)
[2018-01-03] MEDS: DOCUSATE SODIUM 50 MG/SENNA 8.6 MG TAB PO SCH ×2 (09:47→21:00)
[2018-01-03] MEDS: NIFEdipine 30 MG SUSTAINED RELEASE TAB PO SCH (09:47)
[2018-01-03] MEDS: RIFAXIMIN 550 MG TAB PO SCH ×2 (09:47→21:00)
[2018-01-03] MEDS: QUEtiapine FUMARATE 25 MG TAB PO SCH ×2 (09:47→21:00)
[2018-01-03] MEDS: levETIRAcetam INJ 500 MG in SODIUM CHLORIDE 0.9% INJ 100 ML IV SCH ×2 (09:47→21:00)
[2018-01-03] MEDS: LACTULOSE SYRUP 20 GM/30 ML CUP PO SCH (09:47)
[2018-01-03] MEDS: FAMOTIDINE 20 MG TAB PO SCH ×2 (09:47→21:00)
[2018-01-03 12:00] VITALS: BP 117/75; PULSE 88; RESP 19; TEMP 98.2; O2SAT 94
--- NOTE | 2018-01-03 12:19 | HHI.PR ---
Subjective Remarks in no acute distress. still confused and on restraints. d/w the RN at the bedside. Objective Vitals Vital Signs Date Time Temp Pulse Resp B/P (MAP) Pulse Ox O2 Delivery O2 Flow Rate FiO2 01/03/18 08:00 98.4 88 17 158/90 (112) 93 01/03/18 00:00 98.2 82 18 116/74 (88) 98 01/02/18 20:00 99.4 92 18 129/79 (96) 97 01/02/18 18:00 98.7 92 17 139/83 (101) 97 I/O 01/02/18 01/02/18 01/02/18 01/03/18 01/03/18 01/03/18 07:00 15:00 23:00 07:00 15:00 23:00 Intake Total 120 ml 800 ml Output Total 1200 ml 800 ml Balance -1200 ml 120 ml 0 ml Intake Oral 120 ml 800 ml Output Urine Total 1200 ml 800 ml # Bowel Movements 3 Result Diagram: 01/01/18 0353 01/01/18 0353 Imaging Last Impressions Chest X-Ray 12/30/17 0000 Signed Impressions: Service Date/Time: Saturday, December 30, 2017 18:05 - CONCLUSION: No acute disease Rich Kwon MD Head CT 12/24/17 0600 Signed Impressions: Service Date/Time: Sunday, December 24, 2017 02:02 - CONCLUSION: 1. Interval placement of bilateral subdural drainage catheters with decrease in the size of the bilateral subdural collections. 2. New area of acute high-density hemorrhage over the right frontal lobe measuring up to 1.4 cm. the subdural in this region measured up to 1.4 cm with a lower density collection on the prior study. Martin Jarrett MD Objective Remarks GENERAL: This is a well-nourished, well-developed patient, in no apparent distress. CARDIOVASCULAR: Regular rate and regular rhythm without murmurs, gallops, or rubs. RESPIRATORY: Clear to auscultation. Breath sounds equal bilaterally. No wheezes , rales, or rhonchi. GASTROINTESTINAL: Abdomen soft, non-tender, nondistended. Normal, active bowel sounds MUSCULOSKELETAL: Extremities without clubbing, cyanosis, or edema. genitalia; left testicle looks enlarged. NEURO: awake but confused. Procedures 12/21/2017 Right frontal nichol border hole with evacuation or subdural hematoma Left frontal nichol border hole with evacuation or subdural hematoma Medications and IVs Inpatient Medications Acetaminophen (Tylenol) 650 mg Q4H PRN PO fever/ackerman Last administered on at 18:15; Start 12/30/17 at 17:45 Albuterol/ Ipratropium (Duoneb Neb) 1 ampule Q4HR NEB PRN INH WHEEZING; Start 12/21/17 at 12:00 Atorvastatin Calcium (Lipitor) 40 mg HS PO Last administered on 01/02/18at 23:14 ; Start 12/21/17 at 21:00 Bisacodyl (Dulcolax Supp) 10 mg DAILY PRN RECTAL SEVERE CONSITIPATION; Start at 12:00 Chlorhexidine Gluconate (Chlorhexidine 2% Cloth) 3 pack UNSCH PRN TOP HYGIENIC CARE; Start 12/21/17 at 12:00 Dexmedetomidine HCl 200 mcg/ Sodium Chloride 50 ml @ 2.77 mls/hr TITRATE PRN IV Desired RASS Last administered on 12/29/17at 02:05; Start 12/28/17 at 18:30; Stop 12/29/17 at 12:10; Status DC Enalaprilat (Vasotec Inj) 2.5 mg Q4H PRN IV PUSH SBP > 160 Last administered on 12/30/17at 04:10; Start 12/25/17 at 11:00 Famotidine (Pepcid Inj) 20 mg Q12HR IV PUSH Last administered on 12/26/17at 12: 18; Start 12/21/17 at 12:00; Stop 12/26/17 at 13:04; Status DC Famotidine (Pepcid) 20 mg BID PO Last administered on 01/03/18at 09:47; Start at 21:00 Flumazenil (Romazicon Inj) 0.2 mg Q1M PRN IV PUSH SEE LABEL COMMENTS; Start at 16:00 Lactulose (Lactulose Liq) 30 ml DAILY PO Last administered on 01/03/18at 09:47; Start 12/22/17 at 09:00 Levetriacetam 500 mg/Sodium Chloride 105 ml @ 420 mls/hr Q12HR IV Last administered on 01/03/18at 09:47; Start 12/21/17 at 21:00 Lorazepam (Ativan Inj) 2 mg Q15M PRN IV PUSH CIWA > 20 Last administered on at 23:08; Start 12/22/17 at 16:00 Lorazepam (Ativan) 2 mg Q2H PRN PO CIWA 11-14 Last administered on 12/24/17at 20 :44; Start 12/22/17 at 16:00 Magnesium Hydroxide (Milk Of Magnesia Liq) 30 ml Q12H PRN PO Mild constipation ; Start 12/21/17 at 12:00 Magnesium Oxide (Mag-Ox) 800 mg UNSCH PRN PO For Magnesium 1.2 - 1.6 mg/dL; Start 12/22/17 at 16:00; Stop 01/01/18 at 22:43; Status DC Magnesium Sulfate 2 gm/Sodium Chloride 100 ml @ 50 mls/hr UNSCH PRN IV For Magnesium 1.2 - 1.6 mg/dL; Start 12/22/17 at 16:00; Stop 01/01/18 at 22:43; Status DC Magnesium Sulfate 4 gm/Sodium Chloride 100 ml @ 50 mls/hr UNSCH PRN IV For Magnesium 0.9 - 1.1 mg/dL Last administered on 12/31/17at 09:45; Start 12/22/17 at 16:00; Stop 01/01/18 at 22:43; Status DC Metoprolol Tartrate (Lopressor Inj) 5 mg Q1H PRN IV PUSH Pulse rate > 130 Last administered on 12/25/17at 13:15; Start 12/25/17 at 13:00; Stop 12/27/17 at 16:39 ; Status DC Metoprolol Tartrate (Lopressor) 25 mg Q12HR PO Last administered on 01/03/18at 09 :47; Start 12/21/17 at 21:00 Miscellaneous Information SPECIFIC LAB TO BE DRAWN:[facility]... ONCE ONCE .XX ; Start 01/03/18 at 13:45; Stop 01/03/18 at 13:45; Status DC Nicardipine HCl 25 mg/Sodium Chloride 250 ml @ 50 mls/hr TITRATE PRN IV Blood Pressure Management Last administered on 12/25/17at 06:55; Start 12/22/17 at 04: 00; Stop 12/27/17 at 16:39; Status DC Nifedipine (Procardia Xl) 30 mg ONCE ONCE PO Last administered on 12/26/17at 16 :54; Start 12/26/17 at 15:45; Stop 12/26/17 at 16:05; Status DC Ondansetron HCl (Zofran Inj) 4 mg Q6H PRN IV PUSH NAUSEA OR VOMITING; Start at 12:00 Pharmacy Profile Note 0 ml @ 0 mls/hr UNSCH OTHER ; Start 12/30/17 at 17:45; Stop 01/02/18 at 09:38; Status DC Piperacillin Sod/ Tazobactam Sod 100 ml @ 200 mls/hr Q8H IV Last administered on 01/02/18at 04:14; Start 12/30/17 at 20:00; Stop 01/02/18 at 09:38; Status DC Potassium Phosphate (K-Phos) 2,000 mg UNSCH PRN PO/TUBE SEE LABEL COMMENTS; Start 12/22/17 at 16:00; Stop 01/01/18 at 22:43; Status DC Potassium Phosphate 30 mmol/ Sodium Chloride 260 ml @ 42 mls/hr UNSCH PRN IV SEE LABEL COMMENTS Last administered on 12/31/17at 09:45; Start 12/22/17 at 16:00 ; Stop 01/01/18 at 22:43; Status DC Potassium Bicarb/ Potassium Chloride (K-Lyte Cl Eff) 50 meq UNSCH PRN PO For Potassium 3.3 - 3.5 mEq/L Last administered on 12/22/17at 16:36; Start 12/22/17 at 16:00; Stop 01/01/18 at 22:43; Status DC Potassium Chloride (KCl) 20 meq Q12HR PO Last administered on 12/31/17at 10:47; Start 12/28/17 at 21:00; Stop 12/31/17 at 20:59; Status DC Quetiapine Fumarate (SEROquel) 25 mg DAILY PO Last administered on 01/03/18at 09: 47; Start 12/30/17 at 09:00 Rifaximin (Xifaxan) 550 mg BID PO Last administered on 01/03/18at 09:47; Start at 21:00 Senna/Docusate Sodium (Rossana-Colace) 1 tab BID PO Last administered on 01/03/18at 09:47; Start 12/21/17 at 21:00 Sennosides (Senokot) 17.2 mg Q12H PRN PO Moderate constipation; Start 12/21/17 at 12:00 Sodium Chloride 1,000 ml @ 75 mls/hr [id number] IV Last administered on 01/02/18at 23:15; Start 12/21/17 at 11:54 Sodium Phosphate 30 mmol/Sodium Chloride 250 ml @ 42 mls/hr UNSCH PRN IV For Phosphorus < 2.5 mg/dL; Start 12/22/17 at 16:00; Stop 01/01/18 at 22:43; Status DC Vancomycin HCl 1000 mg/Sodium Chloride 250 ml @ 250 mls/hr Q24H IV Last administered on 01/01/18at 14:00; Start 12/31/17 at 14:00; Stop 01/02/18 at 09:38; Status DC Ziprasidone (Geodon Inj) 20 mg Q12H PRN IM SEVERE AGITATION Last administered on 01/01/18at 15:00; Start 12/25/17 at 10:00 A/P Problem List: (1) Bilateral subdural hematomas ICD Code: S06.5X9A - Traumatic subdural hemorrhage with loss of consciousness of unspecified duration, initial encounter (2) HTN (hypertension) ICD Code: I10 - Essential (primary) hypertension Assessment and Plan Large bilateral subdural hematoma History of previous stroke Status post bilateral frontal NICHOL hole with evacuation of subdural hematoma. Neurosurgery following and cleared the patient for discharge. Continue Lipitor and Keppra. Alcohol withdrawal Agitation Patient is currently on CIWA protocol Seroquel 50 mg QHS per neurosurgery.Added Seroquel 25 mg every morning Hypertension Nifedipine 30 mg daily with holding parameters. Metoprolol 25mg BID with holding parameters. Hypokalemia replaced. Mild hypothermia -resolved. fever- has resolved.blood cultures negative/ CXR negative- will monitor. left testicle enlargement; will check sonogram Full code. SCDs. Discharge Planning dc planning in progress. patient is still on four-point restraints. Macy Bartlett MD Jan 03, 2018 12:19
[2018-01-03] MEDS ORDERED: PHARMACY ORDERED LAB ONE (13:45)
[2018-01-03] MEDS: ZIPRASIDONE MESYLATE 20 MG VIAL IM PRN (15:18)
[2018-01-03 16:00] VITALS: BP 163/77; PULSE 112; RESP 17; TEMP 97.7; O2SAT 97
[2018-01-03 20:00] VITALS: BP 178/98; PULSE 109; RESP 18; TEMP 97.6; O2SAT 97
--- NOTE | 2018-01-03 20:07 | RADRPT ---
EXAM DATE/TIME: 01/03/2018 17:42 [facility] COMPARISON: No previous studies available for comparison. INDICATIONS : Enlarged testicle. MEDICAL HISTORY : Chronic obstructive pulmonary disease. Hypertension. Intracranial hemorrhage. CVA. Aphasia. Asthma. L iver disease. Seizures. SURGICAL HISTORY : Unable to obtain. ENCOUNTER: Initial ACUITY: 1 week PAIN SCORE: 2/10 LOCATION: Bilateral scrotum. MEASUREMENTS: RIGHT TESTICLE: 3.7 x 2.9 x 2.1cm LEFT TESTICLE: 3.2 x 3.1 x 1.9cm FINDINGS: Both testicles demonstrate normal blood flow without evidence for torsion. There is a large complex l eft-sided hydrocele with numerous septations. Increased flow to left epididymis could represent epidi dymitis. Left epididymis also enlarged relative to right epididymis. Small right hydrocele. CONCLUSION: 1. Large complex left-sided hydrocele with septations an enlarged epididymis. Findings could represen t an epididymitis. 2. Testicular blood flow without evidence for torsion bilaterally. Brandon Dover MD on January 03, 2018 at 20:02 Board Certified Radiologist. This report was verified electronically.
[2018-01-03] MEDS: ATORVASTATIN 40 MG TAB PO SCH (21:00)
[2018-01-04] VITALS: BP 161/84; PULSE 98; RESP 18; TEMP 98.9; O2SAT 97
[2018-01-04 00:29] LABS: BILIRUBIN, URINE NEG (NEG); BLOOD, URINE NEG (NEG); GLUCOSE,URINE NEG (NEG); KETONE, URINE NEG (NEG); MUCUS URINE FEW /lpf (OCC); NITRITE,URINE NEG (NEG); SQUAMOUS EPITHELIAL CELL URINE <1 /hpf (0-5); URINE COLOR LIGHT-YELLOW (YELLW/STRAW); URINE LEUKOCYTE ESTERASE NEG (NEG)
[2018-01-04 04:00] VITALS: BP 171/95; PULSE 94; RESP 16; TEMP 98.6; O2SAT 97
[2018-01-04] MEDS: CHLORHEXIDINE GLUCONATE 2 % 1 PACK (2 CLOTHS) TOP SCH (04:00)
[2018-01-04] MEDS: ENALAPRILAT 2.5 MG/2 ML VIAL IV PUSH PRN (06:02)
[2018-01-04 08:00] VITALS: BP 178/96; PULSE 90; RESP 16; TEMP 98.2; O2SAT 95
[2018-01-04] MEDS: levETIRAcetam INJ 500 MG in SODIUM CHLORIDE 0.9% INJ 100 ML IV SCH ×2 (09:33→23:06)
[2018-01-04] MEDS: LACTULOSE SYRUP 20 GM/30 ML CUP PO SCH (09:36)
[2018-01-04] MEDS: FAMOTIDINE 20 MG TAB PO SCH ×2 (09:37→23:07)
[2018-01-04] MEDS: QUEtiapine FUMARATE 25 MG TAB PO SCH ×2 (09:37→23:07)
[2018-01-04] MEDS: RIFAXIMIN 550 MG TAB PO SCH ×2 (09:37→23:06)
[2018-01-04] MEDS: NIFEdipine 30 MG SUSTAINED RELEASE TAB PO SCH (09:37)
[2018-01-04] MEDS: DOCUSATE SODIUM 50 MG/SENNA 8.6 MG TAB PO SCH ×2 (09:37→21:00)
[2018-01-04] MEDS: METOPROLOL TARTRATE 25 MG TAB PO SCH ×2 (09:38→23:06)
[2018-01-04 12:00] VITALS: BP 170/104; PULSE 90; RESP 16; TEMP 98; O2SAT 97
--- NOTE | 2018-01-04 12:09 | HHI.PR ---
Subjective Remarks in no acute distress. still confused and on restraints. no fever. d/w the RN. Objective Vitals Vital Signs Date Time Temp Pulse Resp B/P (MAP) Pulse Ox O2 Delivery O2 Flow Rate FiO2 01/04/18 08:00 98.2 90 16 178/96 (123) 95 01/04/18 04:00 98.6 94 16 171/95 (120) 97 01/04/18 00:00 98.9 98 18 161/84 (109) 97 01/03/18 20:00 97.6 109 18 178/98 (124) 97 01/03/18 16:00 97.7 112 17 163/77 (105) 97 I/O 01/03/18 01/03/18 01/03/18 01/04/18 01/04/18 01/04/18 07:00 15:00 23:00 07:00 15:00 23:00 Intake Total 340 ml 120 ml Output Total 750 ml 400 ml Balance -410 ml -280 ml Intake Oral 340 ml 120 ml Output Urine Total 750 ml 400 ml # Voids 3 3 # Bowel Movements 1 Result Diagram: 01/01/18 0353 01/01/18 0353 Imaging Last Impressions Scrotum Ultrasound 01/03/18 0000 Signed Impressions: Service Date/Time: Wednesday, January 03, 2018 17:42 - CONCLUSION: 1. Large complex left-sided hydrocele with septations an enlarged epididymis. Findings could represent an epididymitis. 2. Testicular blood flow without evidence for torsion bilaterally. Brandon Dover MD Chest X-Ray 12/30/17 0000 Signed Impressions: Service Date/Time: Saturday, December 30, 2017 18:05 - CONCLUSION: No acute disease Rich Kwon MD Head CT 12/24/17 0600 Signed Impressions: Service Date/Time: Sunday, December 24, 2017 02:02 - CONCLUSION: 1. Interval placement of bilateral subdural drainage catheters with decrease in the size of the bilateral subdural collections. 2. New area of acute high-density hemorrhage over the right frontal lobe measuring up to 1.4 cm. the subdural in this region measured up to 1.4 cm with a lower density collection on the prior study. Martin Jarrett MD Objective Remarks GENERAL: This is a well-nourished, well-developed patient, in no apparent distress. CARDIOVASCULAR: Regular rate and regular rhythm without murmurs, gallops, or rubs. RESPIRATORY: Clear to auscultation. Breath sounds equal bilaterally. No wheezes , rales, or rhonchi. GASTROINTESTINAL: Abdomen soft, non-tender, nondistended. Normal, active bowel sounds MUSCULOSKELETAL: Extremities without clubbing, cyanosis, or edema. genitalia; left testicle looks enlarged. NEURO: awake but confused. Procedures 12/21/2017 Right frontal nichol border hole with evacuation or subdural hematoma Left frontal nichol border hole with evacuation or subdural hematoma Medications and IVs Inpatient Medications Acetaminophen (Tylenol) 650 mg Q4H PRN PO fever/ackerman Last administered on at 18:15; Start 12/30/17 at 17:45 Albuterol/ Ipratropium (Duoneb Neb) 1 ampule Q4HR NEB PRN INH WHEEZING; Start 12/21/17 at 12:00 Atorvastatin Calcium (Lipitor) 40 mg HS PO Last administered on 01/03/18at 21:00 ; Start 12/21/17 at 21:00 Bisacodyl (Dulcolax Supp) 10 mg DAILY PRN RECTAL SEVERE CONSITIPATION; Start at 12:00 Chlorhexidine Gluconate (Chlorhexidine 2% Cloth) 3 pack UNSCH PRN TOP HYGIENIC CARE; Start 12/21/17 at 12:00 Dexmedetomidine HCl 200 mcg/ Sodium Chloride 50 ml @ 2.77 mls/hr TITRATE PRN IV Desired RASS Last administered on 12/29/17at 02:05; Start 12/28/17 at 18:30; Stop 12/29/17 at 12:10; Status DC Enalaprilat (Vasotec Inj) 2.5 mg Q4H PRN IV PUSH SBP > 160 Last administered on 01/04/18at 06:02; Start 12/25/17 at 11:00 Famotidine (Pepcid Inj) 20 mg Q12HR IV PUSH Last administered on 12/26/17at 12: 18; Start 12/21/17 at 12:00; Stop 12/26/17 at 13:04; Status DC Famotidine (Pepcid) 20 mg BID PO Last administered on 01/04/18at 09:37; Start at 21:00 Flumazenil (Romazicon Inj) 0.2 mg Q1M PRN IV PUSH SEE LABEL COMMENTS; Start at 16:00 Lactulose (Lactulose Liq) 30 ml DAILY PO Last administered on 01/04/18 09:36; Start 12/22/17 at 09:00 Levetriacetam 500 mg/Sodium Chloride 105 ml @ 420 mls/hr Q12HR IV Last administered on 01/04/18 09:33; Start 12/21/17 at 21:00 Lorazepam (Ativan Inj) 2 mg Q15M PRN IV PUSH CIWA > 20 Last administered on at 23:08; Start 12/22/17 at 16:00 Lorazepam (Ativan) 2 mg Q2H PRN PO CIWA 11-14 Last administered on 12/24/17at 20 :44; Start 12/22/17 at 16:00 Magnesium Hydroxide (Milk Of Magnesia Liq) 30 ml Q12H PRN PO Mild constipation ; Start 12/21/17 at 12:00 Magnesium Oxide (Mag-Ox) 800 mg UNSCH PRN PO For Magnesium 1.2 - 1.6 mg/dL; Start 12/22/17 at 16:00; Stop 01/01/18 at 22:43; Status DC Magnesium Sulfate 2 gm/Sodium Chloride 100 ml @ 50 mls/hr UNSCH PRN IV For Magnesium 1.2 - 1.6 mg/dL; Start 12/22/17 at 16:00; Stop 01/01/18 at 22:43; Status DC Magnesium Sulfate 4 gm/Sodium Chloride 100 ml @ 50 mls/hr UNSCH PRN IV For Magnesium 0.9 - 1.1 mg/dL Last administered on 12/31/17at 09:45; Start 12/22/17 at 16:00; Stop 01/01/18 at 22:43; Status DC Metoprolol Tartrate (Lopressor Inj) 5 mg Q1H PRN IV PUSH Pulse rate > 130 Last administered on 12/25/17at 13:15; Start 12/25/17 at 13:00; Stop 12/27/17 at 16:39 ; Status DC Metoprolol Tartrate (Lopressor) 25 mg Q12HR PO Last administered on 01/04/18at 09 :38; Start 12/21/17 at 21:00 Miscellaneous Information SPECIFIC LAB TO BE DRAWN:[facility]... ONCE ONCE .XX ; Start 01/03/18 at 13:45; Stop 01/03/18 at 13:45; Status DC Nicardipine HCl 25 mg/Sodium Chloride 250 ml @ 50 mls/hr TITRATE PRN IV Blood Pressure Management Last administered on 12/25/17at 06:55; Start 12/22/17 at 04: 00; Stop 12/27/17 at 16:39; Status DC Nifedipine (Procardia Xl) 30 mg ONCE ONCE PO Last administered on 12/26/17at 16 :54; Start 12/26/17 at 15:45; Stop 12/26/17 at 16:05; Status DC Ondansetron HCl (Zofran Inj) 4 mg Q6H PRN IV PUSH NAUSEA OR VOMITING; Start at 12:00 Pharmacy Profile Note 0 ml @ 0 mls/hr UNSCH OTHER ; Start 12/30/17 at 17:45; Stop 01/02/18 at 09:38; Status DC Piperacillin Sod/ Tazobactam Sod 100 ml @ 200 mls/hr Q8H IV Last administered on 01/02/18at 04:14; Start 12/30/17 at 20:00; Stop 01/02/18 at 09:38; Status DC Potassium Phosphate (K-Phos) 2,000 mg UNSCH PRN PO/TUBE SEE LABEL COMMENTS; Start 12/22/17 at 16:00; Stop 01/01/18 at 22:43; Status DC Potassium Phosphate 30 mmol/ Sodium Chloride 260 ml @ 42 mls/hr UNSCH PRN IV SEE LABEL COMMENTS Last administered on 12/31/17at 09:45; Start 12/22/17 at 16:00 ; Stop 01/01/18 at 22:43; Status DC Potassium Bicarb/ Potassium Chloride (K-Lyte Cl Eff) 50 meq UNSCH PRN PO For Potassium 3.3 - 3.5 mEq/L Last administered on 12/22/17at 16:36; Start 12/22/17 at 16:00; Stop 01/01/18 at 22:43; Status DC Potassium Chloride (KCl) 20 meq Q12HR PO Last administered on 12/31/17at 10:47; Start 12/28/17 at 21:00; Stop 12/31/17 at 20:59; Status DC Quetiapine Fumarate (SEROquel) 25 mg DAILY PO Last administered on 01/04/18at 09: 37; Start 12/30/17 at 09:00 Rifaximin (Xifaxan) 550 mg BID PO Last administered on 01/04/18 09:37; Start at 21:00 Senna/Docusate Sodium (Rossana-Colace) 1 tab BID PO Last administered on 01/04/18at 09:37; Start 12/21/17 at 21:00 Sennosides (Senokot) 17.2 mg Q12H PRN PO Moderate constipation; Start 12/21/17 at 12:00 Sodium Chloride 1,000 ml @ 75 mls/hr [id number] IV Last administered on 01/02/18at 23:15; Start 12/21/17 at 11:54; Stop 01/03/18 at 12:20; Status DC Sodium Phosphate 30 mmol/Sodium Chloride 250 ml @ 42 mls/hr UNSCH PRN IV For Phosphorus < 2.5 mg/dL; Start 12/22/17 at 16:00; Stop 01/01/18 at 22:43; Status DC Vancomycin HCl 1000 mg/Sodium Chloride 250 ml @ 250 mls/hr Q24H IV Last administered on 01/01/18at 14:00; Start 12/31/17 at 14:00; Stop 01/02/18 at 09:38; Status DC Ziprasidone (Geodon Inj) 20 mg Q12H PRN IM SEVERE AGITATION Last administered on 01/03/18at 15:18; Start 12/25/17 at 10:00 A/P Problem List: (1) Bilateral subdural hematomas ICD Code: S06.5X9A - Traumatic subdural hemorrhage with loss of consciousness of unspecified duration, initial encounter (2) HTN (hypertension) ICD Code: I10 - Essential (primary) hypertension Assessment and Plan Large bilateral subdural hematoma History of previous stroke Status post bilateral frontal NICHOL hole with evacuation of subdural hematoma. Neurosurgery following and cleared the patient for discharge. Continue Lipitor and Keppra. Alcohol withdrawal Agitation Patient is currently on [facility] protocol Seroquel 50 mg QHS per neurosurgery.Added Seroquel 25 mg every morning Hypertension Nifedipine 30 mg daily with holding parameters. Metoprolol 25mg BID with holding parameters. Hypokalemia replaced. epididymitis- start on Levaquin/ scrotal elevation. Full code. SCDs. Discharge Planning dc planning in progress. patient is still on four-point restraints. Macy Bartlett MD Jan 04, 2018 12:09
[2018-01-04] MEDS: LEVOFLOXACIN 500 MG TAB PO SCH (13:06)
[2018-01-04] MEDS: ZIPRASIDONE MESYLATE 20 MG VIAL IM PRN (13:15)
[2018-01-04 16:00] VITALS: BP 146/89; PULSE 87; RESP 18; TEMP 98.6; O2SAT 97
[2018-01-04 20:00] VITALS: BP 143/77; PULSE 101; RESP 18; TEMP 99; O2SAT 98
[2018-01-04] MEDS: ATORVASTATIN 40 MG TAB PO SCH (23:07)
[2018-01-05] VITALS: BP 124/79; PULSE 91; RESP 20; TEMP 98; O2SAT 96
[2018-01-05 04:00] VITALS: BP 146/89; PULSE 80; RESP 18; TEMP 98.1; O2SAT 96
[2018-01-05] MEDS: CHLORHEXIDINE GLUCONATE 2 % 1 PACK (2 CLOTHS) TOP SCH (04:00)
[2018-01-05 08:00] VITALS: BP 123/80; PULSE 80; RESP 19; TEMP 98.3; O2SAT 98
[2018-01-05] MEDS: ZIPRASIDONE MESYLATE 20 MG VIAL IM PRN (08:59)
[2018-01-05] MEDS: LACTULOSE SYRUP 20 GM/30 ML CUP PO SCH (09:00)
[2018-01-05] MEDS: DOCUSATE SODIUM 50 MG/SENNA 8.6 MG TAB PO SCH (09:00)
[2018-01-05] MEDS: levETIRAcetam INJ 500 MG in SODIUM CHLORIDE 0.9% INJ 100 ML IV SCH (09:01)
[2018-01-05] MEDS: LEVOFLOXACIN 500 MG TAB PO SCH (09:03)
[2018-01-05] MEDS: RIFAXIMIN 550 MG TAB PO SCH (09:03)
[2018-01-05] MEDS: FAMOTIDINE 20 MG TAB PO SCH (09:03)
[2018-01-05] MEDS: METOPROLOL TARTRATE 25 MG TAB PO SCH (09:04)
[2018-01-05] MEDS: NIFEdipine 30 MG SUSTAINED RELEASE TAB PO SCH (09:04)
[2018-01-05] MEDS: QUEtiapine FUMARATE 25 MG TAB PO SCH (09:04)
[2018-01-05 12:00] VITALS: BP 112/66; PULSE 92; RESP 18; TEMP 98.2; O2SAT 96
--- NOTE | 2018-01-05 13:15 | HHI.PR ---
Subjective Remarks in no acute distress. still on restraints. no fever. Objective Vitals Vital Signs Date Time Temp Pulse Resp B/P (MAP) Pulse Ox O2 Delivery O2 Flow Rate FiO2 01/05/18 12:00 98.2 92 18 112/66 (81) 96 01/05/18 08:00 98.3 80 19 123/80 (94) 98 01/05/18 04:00 98.1 80 18 146/89 (108) 96 01/05/18 00:00 98.0 91 20 124/79 (94) 96 01/04/18 20:00 99.0 101 18 143/77 (99) 98 01/04/18 16:00 98.6 87 18 146/89 (108) 97 I/O 01/04/18 01/04/18 01/04/18 01/05/18 01/05/18 01/05/18 07:00 15:00 23:00 07:00 15:00 23:00 Intake Total 120 ml 300 ml 0 ml Output Total 400 ml Balance -280 ml 300 ml 0 ml Intake Oral 120 ml 300 ml 0 ml Output Urine Total 400 ml # Voids 3 3 3 1 # Bowel Movements 5 0 Result Diagram: 01/01/18 0353 01/01/18 0353 Imaging Last Impressions Scrotum Ultrasound 01/03/18 0000 Signed Impressions: Service Date/Time: Wednesday, January 03, 2018 17:42 - CONCLUSION: 1. Large complex left-sided hydrocele with septations an enlarged epididymis. Findings could represent an epididymitis. 2. Testicular blood flow without evidence for torsion bilaterally. Brandon Dover MD Chest X-Ray 12/30/17 0000 Signed Impressions: Service Date/Time: Saturday, December 30, 2017 18:05 - CONCLUSION: No acute disease Rich Kwon MD Head CT 12/24/17 0600 Signed Impressions: Service Date/Time: Sunday, December 24, 2017 02:02 - CONCLUSION: 1. Interval placement of bilateral subdural drainage catheters with decrease in the size of the bilateral subdural collections. 2. New area of acute high-density hemorrhage over the right frontal lobe measuring up to 1.4 cm. the subdural in this region measured up to 1.4 cm with a lower density collection on the prior study. Martin Jarrett MD Objective Remarks GENERAL: This is a well-nourished, well-developed patient, in no apparent distress. CARDIOVASCULAR: Regular rate and regular rhythm without murmurs, gallops, or rubs. RESPIRATORY: Clear to auscultation. Breath sounds equal bilaterally. No wheezes , rales, or rhonchi. GASTROINTESTINAL: Abdomen soft, non-tender, nondistended. Normal, active bowel sounds MUSCULOSKELETAL: Extremities without clubbing, cyanosis, or edema. genitalia; left testicle looks enlarged. NEURO: awake but confused. Procedures 12/21/2017 Right frontal nichol border hole with evacuation or subdural hematoma Left frontal nichol border hole with evacuation or subdural hematoma Medications and IVs Inpatient Medications Acetaminophen (Tylenol) 650 mg Q4H PRN PO fever/ackerman Last administered on at 18:15; Start 12/30/17 at 17:45 Albuterol/ Ipratropium (Duoneb Neb) 1 ampule Q4HR NEB PRN INH WHEEZING; Start 12/21/17 at 12:00 Atorvastatin Calcium (Lipitor) 40 mg HS PO Last administered on 01/04/18at 23:07 ; Start 12/21/17 at 21:00 Bisacodyl (Dulcolax Supp) 10 mg DAILY PRN RECTAL SEVERE CONSITIPATION; Start at 12:00 Chlorhexidine Gluconate (Chlorhexidine 2% Cloth) 3 pack UNSCH PRN TOP HYGIENIC CARE; Start 12/21/17 at 12:00 Dexmedetomidine HCl 200 mcg/ Sodium Chloride 50 ml @ 2.77 mls/hr TITRATE PRN IV Desired RASS Last administered on 12/29/17at 02:05; Start 12/28/17 at 18:30; Stop 12/29/17 at 12:10; Status DC Enalaprilat (Vasotec Inj) 2.5 mg Q4H PRN IV PUSH SBP > 160 Last administered on 01/04/18at 06:02; Start 12/25/17 at 11:00 Famotidine (Pepcid Inj) 20 mg Q12HR IV PUSH Last administered on 12/26/17at 12: 18; Start 12/21/17 at 12:00; Stop 12/26/17 at 13:04; Status DC Famotidine (Pepcid) 20 mg BID PO Last administered on 01/05/18 09:03; Start at 21:00 Flumazenil (Romazicon Inj) 0.2 mg Q1M PRN IV PUSH SEE LABEL COMMENTS; Start at 16:00 Lactulose (Lactulose Liq) 30 ml DAILY PO Last administered on 01/04/18at 09:36; Start 12/22/17 at 09:00 Levetriacetam 500 mg/Sodium Chloride 105 ml @ 420 mls/hr Q12HR IV Last administered on 01/05/18at 09:01; Start 12/21/17 at 21:00 Levofloxacin (Levaquin) 500 mg DAILY PO Last administered on 01/05/18 09:03; Start 01/04/18 at 12:15; Stop 01/15/18 at 08:00 Lorazepam (Ativan Inj) 2 mg Q15M PRN IV PUSH CIWA > 20 Last administered on at 23:08; Start 12/22/17 at 16:00 Lorazepam (Ativan) 2 mg Q2H PRN PO CIWA 11-14 Last administered on 12/24/17at 20 :44; Start 12/22/17 at 16:00 Magnesium Hydroxide (Milk Of Magnesia Liq) 30 ml Q12H PRN PO Mild constipation ; Start 12/21/17 at 12:00 Magnesium Oxide (Mag-Ox) 800 mg UNSCH PRN PO For Magnesium 1.2 - 1.6 mg/dL; Start 12/22/17 at 16:00; Stop 01/01/18 at 22:43; Status DC Magnesium Sulfate 2 gm/Sodium Chloride 100 ml @ 50 mls/hr UNSCH PRN IV For Magnesium 1.2 - 1.6 mg/dL; Start 12/22/17 at 16:00; Stop 01/01/18 at 22:43; Status DC Magnesium Sulfate 4 gm/Sodium Chloride 100 ml @ 50 mls/hr UNSCH PRN IV For Magnesium 0.9 - 1.1 mg/dL Last administered on 12/31/17at 09:45; Start 12/22/17 at 16:00; Stop 01/01/18 at 22:43; Status DC Metoprolol Tartrate (Lopressor Inj) 5 mg Q1H PRN IV PUSH Pulse rate > 130 Last administered on 12/25/17at 13:15; Start 12/25/17 at 13:00; Stop 12/27/17 at 16:39 ; Status DC Metoprolol Tartrate (Lopressor) 25 mg Q12HR PO Last administered on 01/05/18at 09 :04; Start 12/21/17 at 21:00 Miscellaneous Information SPECIFIC LAB TO BE DRAWN:VA... ONCE ONCE .XX ; Start 01/03/18 at 13:45; Stop 01/03/18 at 13:45; Status DC Nicardipine HCl 25 mg/Sodium Chloride 250 ml @ 50 mls/hr TITRATE PRN IV Blood Pressure Management Last administered on 12/25/17at 06:55; Start 12/22/17 at 04: 00; Stop 12/27/17 at 16:39; Status DC Nifedipine (Procardia Xl) 30 mg ONCE ONCE PO Last administered on 12/26/17at 16 :54; Start 12/26/17 at 15:45; Stop 12/26/17 at 16:05; Status DC Ondansetron HCl (Zofran Inj) 4 mg Q6H PRN IV PUSH NAUSEA OR VOMITING; Start at 12:00 Pharmacy Profile Note 0 ml @ 0 mls/hr UNSCH OTHER ; Start 12/30/17 at 17:45; Stop 01/02/18 at 09:38; Status DC Piperacillin Sod/ Tazobactam Sod 100 ml @ 200 mls/hr Q8H IV Last administered on 01/02/18at 04:14; Start 12/30/17 at 20:00; Stop 01/02/18 at 09:38; Status DC Potassium Phosphate (K-Phos) 2,000 mg UNSCH PRN PO/TUBE SEE LABEL COMMENTS; Start 12/22/17 at 16:00; Stop 01/01/18 at 22:43; Status DC Potassium Phosphate 30 mmol/ Sodium Chloride 260 ml @ 42 mls/hr UNSCH PRN IV SEE LABEL COMMENTS Last administered on 12/31/17at 09:45; Start 12/22/17 at 16:00 ; Stop 01/01/18 at 22:43; Status DC Potassium Bicarb/ Potassium Chloride (K-Lyte Cl Eff) 50 meq UNSCH PRN PO For Potassium 3.3 - 3.5 mEq/L Last administered on 12/22/17at 16:36; Start 12/22/17 at 16:00; Stop 01/01/18 at 22:43; Status DC Potassium Chloride (KCl) 20 meq Q12HR PO Last administered on 12/31/17at 10:47; Start 12/28/17 at 21:00; Stop 12/31/17 at 20:59; Status DC Quetiapine Fumarate (SEROquel) 25 mg DAILY PO Last administered on 01/05/18 09: 04; Start 12/30/17 at 09:00 Rifaximin (Xifaxan) 550 mg BID PO Last administered on 01/05/18 09:03; Start at 21:00 Senna/Docusate Sodium (Rossana-Colace) 1 tab BID PO Last administered on 01/04/18at 09:37; Start 12/21/17 at 21:00 Sennosides (Senokot) 17.2 mg Q12H PRN PO Moderate constipation; Start 12/21/17 at 12:00 Sodium Chloride 1,000 ml @ 75 mls/hr [id number] IV Last administered on 01/02/18at 23:15; Start 12/21/17 at 11:54; Stop 01/03/18 at 12:20; Status DC Sodium Phosphate 30 mmol/Sodium Chloride 250 ml @ 42 mls/hr UNSCH PRN IV For Phosphorus < 2.5 mg/dL; Start 12/22/17 at 16:00; Stop 01/01/18 at 22:43; Status DC Vancomycin HCl 1000 mg/Sodium Chloride 250 ml @ 250 mls/hr Q24H IV Last administered on 01/01/18at 14:00; Start 12/31/17 at 14:00; Stop 01/02/18 at 09:38; Status DC Ziprasidone (Geodon Inj) 20 mg Q12H PRN IM SEVERE AGITATION Last administered on 01/05/18at 08:59; Start 12/25/17 at 10:00 A/P Problem List: (1) Bilateral subdural hematomas ICD Code: S06.5X9A - Traumatic subdural hemorrhage with loss of consciousness of unspecified duration, initial encounter (2) HTN (hypertension) ICD Code: I10 - Essential (primary) hypertension Assessment and Plan Large bilateral subdural hematoma History of previous stroke Status post bilateral frontal NICHOL hole with evacuation of subdural hematoma. Neurosurgery following and cleared the patient for discharge. Continue Lipitor and Keppra. Alcohol withdrawal Agitation Patient is currently on CIMO protocol Seroquel 50 mg QHS per neurosurgery.Added Seroquel 25 mg every morning Hypertension Nifedipine 30 mg daily with holding parameters. Metoprolol 25mg BID with holding parameters. Hypokalemia replaced. epididymitis- started on Levaquin/ scrotal elevation. Full code. SCDs. Discharge Planning transfer back to [facility]. see med list. d/w case management. time spent 35 min. Macy Bartlett MD Jan 05, 2018 13:14
[2018-01-05] MEDS ORDERED: NIFE30TA8 PO (13:44)
[2018-01-05] MEDS ORDERED: LEVA500T33 PO (13:44)
[2018-01-05] MEDS ORDERED: METO25TA3 PO (13:44)
[2018-01-05] MEDS ORDERED: LEVE500 PO (13:44)
[2018-01-05] MEDS ORDERED: SERO25TA PO ×2 (13:44)
--- NOTE | 2018-01-05 13:45 | HHI.DS ---
Discharge Summary Admission Date Dec 21, 2017 at 12:08 Discharge Date: Jan 05, 2018 Admitting Diagnosis intracranial hemorrhage (1) Bilateral subdural hematomas ICD Code: S06.5X9A - Traumatic subdural hemorrhage with loss of consciousness of unspecified duration, initial encounter Diagnosis: Principal (2) HTN (hypertension) ICD Code: I10 - Essential (primary) hypertension Diagnosis: Secondary Procedures 12/21/2017 Right frontal nichol border hole with evacuation or subdural hematoma Left frontal nichol border hole with evacuation or subdural hematoma Brief History - From Admission This 71-year-old gentleman presents to the [facility] emergency department with altered mental status and confusion. He has a chronic expressive aphasia and right sided deficit from a previous cerebrovascular accident. His care is complicated by long-term alcohol abuse. CAT scan of the head obtained reveals large bilateral subdural fluid collections which are typical of chronic hematoma. There is considerable compression of the brain and the gentleman is quite confused. I have shown the outside hospital head CT scans to the neurosurgeon on-call during the patient's transportation to our facility and upon his examination the patient requires emergency decompression of both hemispheres. Ammonia 32. INR 1.1 CBC/BMP: 01/01/18 0353 01/01/18 0353 Significant Findings Laboratory Tests Test 01/04/18 00:14 Urine Mucus FEW /lpf (OCC) Imaging Last Impressions Scrotum Ultrasound 01/03/18 0000 Signed Impressions: Service Date/Time: Wednesday, January 03, 2018 17:42 - CONCLUSION: 1. Large complex left-sided hydrocele with septations an enlarged epididymis. Findings could represent an epididymitis. 2. Testicular blood flow without evidence for torsion bilaterally. Brandon Dover MD Chest X-Ray 12/30/17 0000 Signed Impressions: Service Date/Time: Saturday, December 30, 2017 18:05 - CONCLUSION: No acute disease Rich Kwon MD Head CT 12/24/17 0600 Signed Impressions: Service Date/Time: Sunday, December 24, 2017 02:02 - CONCLUSION: 1. Interval placement of bilateral subdural drainage catheters with decrease in the size of the bilateral subdural collections. 2. New area of acute high-density hemorrhage over the right frontal lobe measuring up to 1.4 cm. the subdural in this region measured up to 1.4 cm with a lower density collection on the prior study. Martin Jarrett MD PE at Discharge GENERAL: This is a well-nourished, well-developed patient, in no apparent distress. CARDIOVASCULAR: Regular rate and regular rhythm without murmurs, gallops, or rubs. RESPIRATORY: Clear to auscultation. Breath sounds equal bilaterally. No wheezes , rales, or rhonchi. GASTROINTESTINAL: Abdomen soft, non-tender, nondistended. Normal, active bowel sounds MUSCULOSKELETAL: Extremities without clubbing, cyanosis, or edema. genitalia; left testicle looks enlarged. NEURO: awake but confused. Hospital Course Large bilateral subdural hematoma History of previous stroke Status post bilateral frontal NICHOL hole with evacuation of subdural hematoma. Neurosurgery following and cleared the patient for discharge. Continue Lipitor and Keppra. Alcohol withdrawal Agitation Patient is currently on CIWA protocol Seroquel 50 mg QHS per neurosurgery.Added Seroquel 25 mg every morning Hypertension Nifedipine 30 mg daily with holding parameters. Metoprolol 25mg BID with holding parameters. Hypokalemia replaced. epididymitis- started on Levaquin/ scrotal elevation. Full code. SCDs. Pt Condition on Discharge: Fair Discharge Disposition: Trnsfr to Other Facility Discharge Time: > 30 minutes Discharge Instructions DIET: Follow Instructions for: Heart Healthy Diet Activities you can perform: Regular-No Restrictions Macy Bartlett MD Jan 05, 2018 13:45
[2018-01-05 16:00] VITALS: BP 123/78; PULSE 86; RESP 16; TEMP 98.5; O2SAT 97
--- NOTE | 2018-01-09 08:35 | PQ ---
Physician Query Response Document PATIENT: ADINA ERNST : 1945 ADMIT DATE: 12/21/2017 12:08 PM DISCH DATE: 01/05/2018 6:36 PM RESPONDING PROVIDER #: jamie QUERY TEXT: CDS Clarification Encephalopathy in the setting of subdural hematomas w/ brain compression requiring treatment with Bur r Holes. Other explanation of clinical findings. Unable to determine (no explanation for clinical findings). The patient's Clinical Indicators include: The medical record reflects the following clinical findings, treatment, and risk factors. * Clinical Indicators: AMS and confusion * Risk Factors: Bilateral Subdural Hematomas w/compression of the brain * Treatment: [place] Holes bilaterally, Neuro checks, CT Head Please clarify and document your clinical opinion in the progress notes and discharge summary includi ng the definitive and/or presumptive diagnosis (suspected or probable), related to the above clinical findings. Please include clinical findings supporting your diagnosis. Thank you, Jessica Marie CDS: Jessica Marie Patient Unit: [id number] Contact Number: [phone] Room: 1324 Query created by: Jessica Marie on 12/28/2017 11:04 AM RESPONSE TEXT: Encephalopathy likely due to subdural hematoma s/p decompression with Arlene holes. Electronically signed by: Kelechi Zheng DO 01/09/2018 8:32 AM
== END 2018-01-05 18:36 | disposition short-term general hospital (02) | DRG 25 ==
LOC: NEPC 11:30 → NEDA 12:08 → N03B 22:23 → N07A 01-01 22:38
PROVIDERS: ADMIT Internal Medicine; ATTEND Internal Medicine
PROC: 00C40ZZ Extirpation of Matter from Intracranial Subdural Space, Open Approach (ICD-10-PCS; principal; 2017-12-22)
DX: S06.5X0A Traumatic subdural hemorrhage without loss of consciousness, initial encounter (principal); G93.5 Compression of brain; G93.40 Encephalopathy, unspecified; I95.9 Hypotension, unspecified; I69.351 Hemiplegia and hemiparesis following cerebral infarction affecting right dominant side; R56.9 Unspecified convulsions; J44.9 Chronic obstructive pulmonary disease, unspecified; I69.320 Aphasia following cerebral infarction; E83.42 Hypomagnesemia; F10.239 Alcohol dependence with withdrawal, unspecified; I10 Essential (primary) hypertension; K76.9 Liver disease, unspecified; N45.1 Epididymitis; R68.0 Hypothermia, not associated with low environmental temperature; R00.0 Tachycardia, unspecified; E87.6 Hypokalemia; E83.39 Other disorders of phosphorus metabolism; Z78.1 Physical restraint status; Z91.81 History of falling
CPT/HCPCS: 70450; 71045; 76870; 80048; 80053; 80202; 81001; 83036; 83735; 84100; 84132; 84439; 84443; 85025; 87040; 87086; 87641; 88304; 93005; 93975; 99285; J0360; J0690; J1100; J1580; J1953; J2060; J2370; J2405; J2543; J3010; J3370; J3475; J3480; J3486; J7030; J7050

== ENCOUNTER 2018-04-22 17:44 | Inpatient (IN) ==
[2018-04-22] MEDS ORDERED: Morphine Inj 4 MG/ML Vial IV.PUSH PRN (21:07)
[2018-04-22] MEDS ORDERED: Bisacodyl 10 MG Supp RECTAL PRN (21:10)
[2018-04-22] MEDS ORDERED: Temazepam 15 MG Capsule PO PRN (21:10)
[2018-04-22] MEDS ORDERED: Acetaminophen 325 MG Tablet PO PRN (21:10)
--- NOTE | 2018-04-22 21:54 | P.HPIM ---
History of Present Illness Primary Care Physician: UNKNOWN History of Present Illness: This is a 72-year-old male with a PMH of Cirrhosis and Seizure Disorder who was transferred from [facility] for eval by Dr. Pardo w/ Urology due to Epididymitis/Scrotal Masses. Pt states he was helping a friend move 2 days ago and was lifting heavy furniture, has had persistent scrotal pain since then. Denies penile discharge, dysuria or hematuria. Presented to [facility] ER for above complaints, per review of records, pt was Afebrile, WBC 18, U/a negative. US Scrotum w/ possible 1-2 scrotal masses left testicle. Dr. Pardo consulted and accepted pt for transfer. S/p Rocephin 1gm IV prior to transfer. Pt w/o complaints at this time except for some scrotal pain. - Diagnosis (1) Epididymitis (2) Scrotal mass (3) Cirrhosis (4) Seizure disorder Inpatient Certification: I certify that the inpatient services were ordered in accordance with Medicare regulations governing the order. This includes certification that hospital inpatient services are reasonable and necessary and in the case of services not specified as inpatient-only under 42 CFR 419.22(n), that they are appropriately provided as inpatient services in accordance to with the 2-midnight benchmark under 43 CFR 412.3(e) Estimated Total Length of Stay (Days): 2 Plans for Post Hospital Care: Not yet determined Review of Systems All other systems reviewed negative except as stated in HPI Medications and Allergies Active Medications: Active Medications Acetaminophen (Tylenol) 650 mg PO Q4H PRN PRN Reason: Temp > 100.4 Hydrocodone Bitart/Acetaminophen ([place] 5/325) 1 tab PO Q4H PRN PRN Reason: PAIN 3-5 Al Hydroxide/Mg Hydroxide (Milk Of Magnesia Liq) 30 ml PO Q12H PRN PRN Reason: Mild Constipation Bisacodyl (Dulcolax Supp) 10 mg RECTAL DAILY PRN PRN Reason: SEVERE CONSITIPATION Sodium Chloride (Ns Inj) 1,000 mls @ 100 mls/hr IV.CONT .Q10H DAE Ceftriaxone Sodium 1,000 mg/ (Sodium Chloride) 100 mls @ 200 mls/hr IV.SIG Q24H DAE Lactulose (Lactulose Liq) 30 ml PO DAILY PRN PRN Reason: SEVERE CONSITIPATION Levetiracetam (Keppra) 500 mg PO BID [facility] Morphine Sulfate (Morphine Inj) 2 mg IV.PUSH Q4H PRN PRN Reason: PAIN 6-10 Ondansetron HCl (Zofran Odt) 4 mg PO Q6H PRN PRN Reason: NAUSEA OR VOMITING Rifaximin (Xifaxan) 550 mg PO Q12HR [facility] Senna/Docusate Sodium (Rossana-Colace) 1 tab PO BID [facility] Sennosides (Senokot) 17.2 mg PO Q12H PRN PRN Reason: Moderate Constipation Temazepam (Restoril) 15 mg PO HS PRN PRN Reason: INSOMNIA Thiamine HCl (Vitamin B1) 100 mg PO DAILY [facility] Allergies Allergy/AdvReac Type Severity Reaction Status Date / Time No Known Allergies Allergy Unverified 12/21/17 12:21 Exam Narrative: PE: GENERAL: Pleasant elderly black male in no acute distress. HEENT: PERRLA, EOMI. No scleral icterus or conjunctival pallor. No lid lag or facial droop. CARDIOVASCULAR: Regular rate and rhythm. No obvious murmurs to auscultation. No chest tenderness to palpation. RESPIRATORY: No obvious rhonchi or wheezing. Clear to auscultation. Breath sounds equal bilaterally. GASTROINTESTINAL: Abdomen soft, non-tender, nondistended. BS normal. No penile discharge, left testicle swollen, +tenderness to palpation. MUSCULOSKELETAL: Extremities without clubbing, cyanosis, or edema. No obvious deformities. NEUROLOGICAL: Awake, alert and oriented x4. No focal neurologic deficits. Moving both upper and lower extremities spontaneously. Results - Labs CBC & Chem 7: 04/22/18 22:07 04/22/18 22:07 Caprini VTE Risk Assessment Caprini VTE Risk Assessment: No/Low Risk (score <= 1) Caprini Risk Assessment Model: Point Value = 1 Point Value = 2 Point Value = 3 Point Value = 5 Age 41-60 Minor surgery BMI > 25 kg/m2 Swollen legs Varicose veins or History of unexplained or recurrent spontaneous Oral contraceptives or hormone replacement Sepsis (< 1 month) Serious lung disease, including pneumonia (< 1 month) Abnormal pulmonary function Acute myocardial infarction Congestive heart failure (< 1 month) History of inflammatory bowel disease Medical patient at bed rest Age 61-74 Arthroscopic surgery Major open surgery (> 45 min) Laparoscopic surgery (> 45 min) Malignancy Confined to bed (> 72 hours) Immobilizing plaster cast Central venous access Age >= 75 History of VTE Family history of VTE Factor V Leiden Prothrombin [id number] Lupus anticoagulant Anticardiolipin antibodies Elevated serum homocysteine Heparin-induced thrombocytopenia Other congenital or acquired thrombophilia Stroke (< 1 month) Elective arthroplasty Hip, pelvis, or leg fracture Acute spinal cord injury (< 1 month) Prophylaxis Regimen: Total Risk Factor Score Risk Level Prophylaxis Regimen 0-1 Low Early ambulation 2 Moderate Order ONE of the following: *Sequential Compression Device (SCD) *Heparin 5000 units SQ BID 3-4 Higher Order ONE of the following medications: *Heparin 5000 units SQ TID *Enoxaparin/Lovenox 40 mg SQ daily (WT < 150 kg, CrCl > 30 mL/min) *Enoxaparin/Lovenox 30 mg SQ daily (WT < 150 kg, CrCl > 10-29 mL/min) *Enoxaparin/Lovenox 30 mg SQ BID (WT < 150 kg, CrCl > 30 mL/min) AND/OR *Sequential Compression Device (SCD) 5 or more Highest Order ONE of the following medications: *Heparin 5000 units SQ TID (Preferred with Epidurals) *Enoxaparin/Lovenox 40 mg SQ daily (WT < 150 kg, CrCl > 30 mL/min) *Enoxaparin/Lovenox 30 mg SQ daily (WT < 150 kg, CrCl > 10-29 mL/min) *Enoxaparin/Lovenox 30 mg SQ BID (WT < 150 kg, CrCl > 30 mL/min) AND *Sequential Compression Device (SCD) Assessment and Plan - Assessment (1) Epididymitis Code(s): N45.1 - Epididymitis Status: Acute (2) Scrotal mass Code(s): N50.9 - Disorder of male genital organs, unspecified Status: Acute (3) Cirrhosis Code(s): K74.60 - Unspecified cirrhosis of liver Status: Acute (4) Seizure disorder Code(s): G40.909 - Epilepsy, unspecified, not intractable, without status epilepticus Status: Acute - Plan A/P: 1. Epididymitis: tx from [facility] for possible epididymitis and scrotal mass, s /p Rocephin 1gm IV prior to transfer. WBC 18 per review of records from [facility] , will continue w/ IV Abx, repeat labs, send repeat U/a, follow up cultures. 2. Scrotal Mass: left scrotal tenderness/swelling x2 days after moving furniture, US Scrotum from [facility] w/ possible 1-2 left testicular masses, Dr. Pardo consulted for evaluation/possible intervention. NPO after midnight, IVF , analgesics/antiemetics 3. Cirrhosis: Chronic. Monitor I/O, resume home medications. 4. Seizure Disorder: no recent seizure activity, resume home Keppra. 5. DVT Prophylaxis: SCD/Teds 6. Social work for d/c planning as needed 7. Case discussed w/ ER physician at length, labs/records/imaging from [facility] reviewed by me.
[2018-04-22 22:16] LABS: Baso % (Auto) 0.3 % (0.0-2.0); Eos % (Auto) 0.2 % (0.0-4.0); Hematocrit 35.9 % (39.0-51.0); Hemoglobin 11.2 gm/dL (13.0-17.0); Lymph # (Auto) 2.8 th/mm3 (1.0-4.8); Mean Corpuscular HGB Conc 31.2 % (32.0-36.0); Mean Corpuscular Hemoglobin 25.1 pg (27.0-34.0); Mean Corpuscular Volume 80.3 fL (80.0-100.0); Mean Platelet Volume 8.4 fL (7.0-11.0); Mono # (Auto) 0.7 th/mm3 (0.0-0.9); Mono % (Auto) 4.5 % (0.0-8.0); Platelet Count 145 th/mm3 (150-450); Red Blood Count 4.47 mil/mm3 (4.50-5.90); Red Cell Distribution Width 14.5 % (11.6-17.2); White Blood Count 15.5 th/mm3 (4.0-11.0)
[2018-04-22 22:50] LABS: Albumin 3.1 g/dL (3.4-5.0); Anion Gap 12 meq/L (5-15); Aspartate Aminotransferase 18 U/L (15-37); Blood Urea Nitrogen 13 mg/dL (7-18); Calcium 9.1 mg/dL (8.5-10.1); Carbon Dioxide 23.3 meq/L (21.0-32.0); Chloride 107 meq/L (98-107); Glomerular Filtration Rate 79 mL/min (>89); Glucose,Random 90 mg/dL (74-106); Potassium 3.7 meq/L (3.5-5.1); Sodium 142 meq/L (136-145)
[2018-04-22 22:54] LABS: Alanine Aminotransferase 11 U/L (12-78); Alkaline Phosphatase 75 U/L (45-117)
[2018-04-22] MEDS: levETIRAcetam 500 MG Tablet PO SCH (23:50)
[2018-04-22] MEDS: Sod Chloride 0.9% Inj 1,000 ML IV.CONT SCH (23:50)
[2018-04-22] MEDS: rifAXIMin 550 MG Tablet PO SCH (23:50)
[2018-04-23] MEDS: Sod Chloride 0.9% Inj 1,000 ML IV.CONT SCH ×4 (05:10→20:54)
[2018-04-23] MEDS: rifAXIMin 550 MG Tablet PO SCH ×2 (09:26→20:46)
[2018-04-23] MEDS: Senna/Docusate Sodium 8.6/50 MG Tablet PO SCH ×2 (09:26→20:46)
[2018-04-23] MEDS: levETIRAcetam 500 MG Tablet PO SCH ×2 (09:26→20:46)
[2018-04-23 09:35] LABS: Baso % (Auto) 0.2 % (0.0-2.0); Eos # (Auto) 0.1 th/mm3 (0.0-0.4); Eos % (Auto) 0.6 % (0.0-4.0); Hematocrit 30.9 % (39.0-51.0); Lymph # (Auto) 1.7 th/mm3 (1.0-4.8); Lymph % (Auto) 17.1 % (9.0-44.0); Mean Corpuscular HGB Conc 32.2 % (32.0-36.0); Mean Corpuscular Hemoglobin 25.9 pg (27.0-34.0); Mean Corpuscular Volume 80.2 fL (80.0-100.0); Mean Platelet Volume 8.5 fL (7.0-11.0); Mono # (Auto) 0.7 th/mm3 (0.0-0.9); Mono % (Auto) 7.7 % (0.0-8.0); Neut # (Auto) 7.2 th/mm3 (1.8-7.7); Neut % (Auto) 74.4 % (16.0-70.0); Platelet Count 139 th/mm3 (150-450); Red Blood Count 3.85 mil/mm3 (4.50-5.90); Red Cell Distribution Width 14.5 % (11.6-17.2); White Blood Count 9.6 th/mm3 (4.0-11.0)
[2018-04-23 10:01] LABS: Alanine Aminotransferase 9 U/L (12-78); Albumin 2.4 g/dL (3.4-5.0); Alkaline Phosphatase 62 U/L (45-117); Anion Gap 9 meq/L (5-15); Aspartate Aminotransferase 10 U/L (15-37); Blood Urea Nitrogen 10 mg/dL (7-18); Calcium 8.5 mg/dL (8.5-10.1); Chloride 110 meq/L (98-107); Glomerular Filtration Rate Greater Than 89 mL/min (>89); Glucose,Random 84 mg/dL (74-106); Potassium 3.3 meq/L (3.5-5.1); Sodium 143 meq/L (136-145); Total Protein 6.6 g/dL (6.4-8.2)
--- NOTE | 2018-04-23 15:19 | P.PN ---
Subjective Interval history: Follow up for epididymitis/Scrotal swelling. Patient is currently doing well. No fever, chills. He was transferred to [facility] from [facility] for an Urology eval. Physical Exam Vital signs: Vital Signs 04/22/18 22:00 04/23/18 00:00 04/23/18 03:17 Temperature 99.2 F 98.9 F Pulse Rate 75 Respiratory Rate 18 18 Blood Pressure 175/92 H 169/95 H Pulse Oximetry 99 99 04/23/18 04:00 04/23/18 05:09 04/23/18 08:00 Temperature 98.1 F 98.2 F Pulse Rate 67 65 Respiratory Rate 18 16 Blood Pressure 120/81 136/77 Pulse Oximetry 99 98 Intake & Output 04/22/18 04/23/18 04/23/18 18:59 06:59 18:59 Intake Total 1000 / 1000 Balance 1000 / 1000 Weight 60.8 kg Intake: IV 1000 / 1000 NS Inj 1,000 ML @ 100 mls/hr IV 1000 / 1000 .CONT .Q10H DAE Rx#:[id number] Other: Weight On Admission 60.8 kg Narrative: GENERAL: Alert, NAD. SKIN: Warm and dry. HEAD: Normocephalic. EYES: No scleral icterus. No injection or drainage. NECK: Supple, trachea midline. No JVD or lymphadenopathy. CARDIOVASCULAR: Regular rate and rhythm without murmurs, gallops, or rubs. RESPIRATORY: Breath sounds equal bilaterally. No accessory muscle use. GASTROINTESTINAL: Abdomen soft, non-tender, nondistended. MUSCULOSKELETAL: No cyanosis, or edema. : Scrotum is somewhat swollen, mild tenderness on palpation. BACK: Nontender without obvious deformity. No CVA tenderness. Results - Labs CBC & Chem 7: 04/23/18 09:02 04/23/18 09:02 Laboratory Results - last 24 hr 04/22/18 04/22/18 04/23/18 22:07 22:07 09:02 WBC 15.5 H 9.6 RBC 4.47 L 3.85 L Hgb 11.2 L 10.0 L Hct 35.9 L 30.9 L MCV 80.3 80.2 MCH 25.1 L 25.9 L MCHC 31.2 L 32.2 RDW 14.5 14.5 Plt Count 145 L 139 L MPV 8.4 8.5 Neut % (Auto) 77.0 H 74.4 H Lymph % (Auto) 18.0 17.1 [place] % (Auto) 4.5 7.7 Eos % (Auto) 0.2 0.6 Baso % (Auto) 0.3 0.2 Neut # (Auto) 12.0 H 7.2 Lymph # (Auto) 2.8 1.7 Latimer # (Auto) 0.7 0.7 Eos # (Auto) 0.0 0.1 Baso # (Auto) 0.0 0.0 WBC Differential . . Differential Comment Auto diff final Auto diff final Sodium 142 Potassium 3.7 Chloride 107 Carbon Dioxide 23.3 Anion Gap 12 BUN 13 Creatinine 1.11 Estimated GFR 79 L Random Glucose 90 Calcium 9.1 Total Bilirubin 0.9 AST 18 ALT 11 L Alkaline Phosphatase 75 Total Protein 8.0 Albumin 3.1 L 04/23/18 09:02 WBC RBC Hgb Hct MCV MCH MCHC RDW Plt Count MPV Neut % (Auto) Lymph % (Auto) Latimer % (Auto) Eos % (Auto) Baso % (Auto) Neut # (Auto) Lymph # (Auto) Latimer # (Auto) Eos # (Auto) Baso # (Auto) WBC Differential Differential Comment Sodium 143 Potassium 3.3 L Chloride 110 H Carbon Dioxide 24.0 Anion Gap 9 BUN 10 Creatinine 0.95 Estimated GFR Greater than 89 Random Glucose 84 Calcium 8.5 Total Bilirubin 0.9 AST 10 L ALT 9 L Alkaline Phosphatase 62 Total Protein 6.6 D Albumin 2.4 L D Assessment and Plan - Assessment (1) Epididymitis Code(s): N45.1 - Epididymitis Status: Acute (2) Scrotal mass Code(s): N50.9 - Disorder of male genital organs, unspecified Status: Acute (3) Cirrhosis Code(s): K74.60 - Unspecified cirrhosis of liver Status: Acute (4) Seizure disorder Code(s): G40.909 - Epilepsy, unspecified, not intractable, without status epilepticus Status: Acute - Plan This is a 72-year-old male with a PMH of Cirrhosis and Seizure Disorder who was transferred from [facility] for eval by Dr. Edvin hernandez/ Urology due to Epididymitis/Scrotal Masses. It occurred two days ago when he was trying to help a friend move. Denies penile discharge, dysuria or hematuria. Probable Epididymitis Scrotal mass - Apparently, outside [place] study showed 1-2 left testicular masses. - WBC was 18K at [facility]. - Continue Ceftriaxone 1g Q24hrs. - Urology consult pending. Cirrhosis of the liver - Continue Rifaximin 550mg Q12hrs and Lactulose. Seizure disorder - continue Keppra 500mg BID. Full code. Ambulation. Probable discharge back to [place] [facility] after Urology eval.
[2018-04-23 17:43] LABS: Bilirubin,Urine Negative (Negative); Clarity,Urine Hazy (Clear); Color,Urine Amber (Yellw/Straw); Glucose,Urine (UA) Negative (Negative); Leukocyte Esterase,Urine Negative (Negative); Mucus,Urine Few /lpf (Occasional); Nitrite,Urine Negative (Negative); Specific Gravity,Urine 1.029 (1.002-1.035); Squamous Epithelial Cell,Urine 1 /hpf (0-5); Transitional Epi Cells,Urine <1 /hpf; Urobilinogen,Urine 4 or Greater mg/dL (Less than 2)
[2018-04-23 18:26] VITALS: RESP 18
--- NOTE | 2018-04-23 18:30 | MB ---
cc: Kermit Pardon Vandana DO DATE: 04/23/2018 HISTORY OF PRESENT ILLNESS: Mr. Engel is a pleasant 72-year-old male who started noticing left-sided scrotal pain and tenderness earlier this week. He does admit to lifting some furniture with a friend, which exacerbated it. I was called by [facility] yesterday and due to the fact that they do have any urology coverage, the patient was then transferred here. He denies any voiding complaints or dysuria. Denies any history of prostatitis. Scrotal ultrasound was performed, which showed some evidence of hyperemia per report, as well as some scrotal masses. PAST MEDICAL HISTORY: Includes cirrhosis and a seizure disorder and recent findings of epididymal orchitis. PAST SURGICAL HISTORY: No surgical history is noted. FAMILY HISTORY: No family history of prostate cancer. SOCIAL HISTORY: History of drinking is noted in the past. REVIEW OF SYSTEMS: Denies abdominal pain, constipation, headaches, dizziness, chest pain, shortness of breath, abdominal pain, gait disturbances, bleeding disorders. The remaining review of systems reviewed and were negative. PHYSICAL EXAMINATION: VITAL SIGNS: Temperature 98.2, heart rate 65, respiratory rate 16, 136/77. GENERAL: He is a well-developed, well-nourished, 72-year-old male in no acute distress. HEENT: He is normocephalic, atraumatic. Pupils equal, round, . Extraocular movements intact. NECK: Supple. HEART: Regular rate and rhythm. LUNGS: Clear. ABDOMEN: Soft, nontender, nondistended. GENITOURINARY: Tender, swollen left testicle, consistent with orchitis. Right testicle within normal limits, uncircumcised phallus is noted. EXTREMITIES: Show no clubbing or edema. LABORATORY DATA: White count 9.6, hemoglobin 10.0, hematocrit 30.9, platelet count of 139. Sodium 143, potassium 3.3, chloride 110, CO2 24, BUN of 10, creatinine 0.95, glucose is 89. ASSESSMENT AND PLAN: This is a 72-year-old male with left epididymal orchitis. We will continue to follow the culture results and we will continue with IV antibiotics at the present time. No surgical intervention is required at this present time. We will follow with you. Thank you again for the consult and helping me care for this patient. DO RHONDA Morataya , 04:07 PM , 06:29 PM
[2018-04-24] MEDS: Sod Chloride 0.9% Inj 1,000 ML IV.CONT SCH ×4 (03:37→16:43)
--- NOTE | 2018-04-24 08:44 | P.PNURO ---
Subjective Patient symptoms today: Pt seen and examined. Feels well. Objective Vital Signs: Vital Signs 04/23/18 12:00 04/23/18 16:00 04/23/18 20:00 Temperature 98.1 F 98.8 F 99.1 F Pulse Rate 66 72 91 H Respiratory Rate 18 Blood Pressure 134/70 144/84 H 147/77 H Pulse Oximetry 98 97 97 04/24/18 00:00 04/24/18 02:03 04/24/18 03:52 Temperature 98.2 F Pulse Rate 70 Respiratory Rate 18 Blood Pressure 133/63 Pulse Oximetry 68 L 04/24/18 04:00 Temperature 98.7 F Pulse Rate 68 Respiratory Rate Blood Pressure 141/83 H Pulse Oximetry 98 Intake & Output 04/23/18 04/24/18 04/24/18 18:59 06:59 18:59 Intake Total 1999 / 1999 1100 / 1100 1000 / 1000 Balance 1999 1100 / 1100 1000 / 1000 Weight 64 kg Intake: IV 1999 / 1999 1100 / 1100 1000 / 1000 NS Inj 1,000 ML @ 100 mls/hr IV 1999 / 1999 1000 / 1000 1000 / 1000 .CONT .Q10H DAE Rx#:[id number] Rocephin Inj 1,000 MG In NS Inj 100 / 100 100 ML @ 200 mls/hr IV.SIG Q24H DAE Rx#:[id number] Other: # Voids 2 Result Diagrams: 04/23/18 09:02 04/23/18 09:02 Medications and IVs: Active Medications Generic Name Dose Route Start Last Admin Trade Name Freq PRN Reason Stop Dose Admin Acetaminophen 650 mg 04/22/18 21:10 Tylenol PO Q4H PRN Temp > 100.4 Hydrocodone Bitart/Acetaminophen 1 tab 04/22/18 21:07 04/23/18 20:46 Levant 5/325 PO 1 tab Q4H PRN Administration PAIN 3-5 Al Hydroxide/Mg Hydroxide 30 ml 04/22/18 21:10 Milk Of Magnesia Liq PO Q12H PRN Mild Constipation Bisacodyl 10 mg 04/22/18 21:10 Dulcolax Supp RECTAL DAILY PRN SEVERE CONSITIPATION Sodium Chloride 1,000 mls @ 100 mls/hr 04/22/18 21:15 04/24/18 07:52 Ns Inj IV.CONT Infused .Q10H DAE Infusion Ceftriaxone Sodium 1,000 mg/ 100 mls @ 200 mls/hr 04/23/18 21:00 04/23/18 21: 17 Sodium Chloride IV.SIG Infused Q24H DAE Infusion Sodium Chloride 1,000 mls @ 75 mls/hr 04/23/18 15:15 04/24/18 04:42 Ns Inj IV.CONT Not Given .[id number] DAE Lactulose 30 ml 04/22/18 21:10 Lactulose Liq PO DAILY PRN SEVERE CONSITIPATION Levetiracetam 500 mg 04/22/18 21:45 04/23/18 20:46 Keppra PO 500 mg BID DAE Administration Morphine Sulfate 2 mg 04/22/18 21:07 Morphine Inj IV.PUSH Q4H PRN PAIN 6-10 Ondansetron HCl 4 mg 04/22/18 21:10 Zofran Odt PO Q6H PRN NAUSEA OR VOMITING Rifaximin 550 mg 04/22/18 21:45 04/23/18 20:46 Xifaxan PO 550 mg Q12HR DAE Administration Senna/Docusate Sodium 1 tab 04/23/18 09:00 04/23/18 20:46 Rossana-Colace PO 1 tab BID DAE Administration Sennosides 17.2 mg 04/22/18 21:10 Senokot PO Q12H PRN Moderate Constipation Temazepam 15 mg 04/22/18 21:10 Restoril PO HS PRN INSOMNIA Thiamine HCl 100 mg 04/23/18 09:00 04/23/18 09:26 Vitamin B1 PO 100 mg DAILY DAE Administration Objective Remarks: Abd:soft,nt,nd Right testicle still swollend and tender Assessment and Plan - Plan 72 y.o male with left epididymal orchitis Continue abx Stable fo rdischarge on PO abx F/U in one month
[2018-04-24] MEDS: rifAXIMin 550 MG Tablet PO SCH (08:58)
[2018-04-24] MEDS: Senna/Docusate Sodium 8.6/50 MG Tablet PO SCH (08:59)
[2018-04-24] MEDS: levETIRAcetam 500 MG Tablet PO SCH (08:59)
--- NOTE | 2018-04-24 15:45 | P.DS ---
Date of admission: 04/22/18 20:40 Primary care physician: UNKNOWN Brief History from admission: This is a 72-year-old male with a PMH of Cirrhosis and Seizure Disorder who was transferred from [facility] for eval by Dr. Pardo w/ Urology due to Epididymitis/Scrotal Masses. Pt states he was helping a friend move 2 days ago and was lifting heavy furniture, has had persistent scrotal pain since then. Denies penile discharge, dysuria or hematuria. Presented to [facility] for above complaints, per review of records, pt was Afebrile, WBC 18, U/a negative. US Scrotum w/ possible 1-2 scrotal masses left testicle. Dr. Pardo consulted and accepted pt for transfer. S/p Rocephin 1gm IV prior to transfer. Pt w/o complaints at this time except for some scrotal pain. DS: Medications - Discharge Medications Prescriptions: Lactobacillus acidophilus 500 mmu cells PO TID #30 cap levofloxacin [Levaquin] 500 mg PO DAILY #10 tab tramadol 50 mg PO Q6H #20 tab DS: Summary Hospital Course: Mr. East is a 72-year-old male. He was transferred to [facility] from [facility] secondary to orchitis with suspicion of need for incision and drainage. Urology has evaluated this patient and has recommended no procedure and continuation of antibiotics as an outpatient in an oral form. Patient has been improving on her current antibiotics. She is medically stable and cleared for discharge home today. He will discharge with Levaquin, probiotics, and pain treatment. - Time Spent with Patient Total time spent providing and/or coordinating discharge services: - Quality: VTE Deep Vein Thrombosis/Pulmonary Embolism Present on Admission: No Exam Vital signs: Vital Signs 04/23/18 16:00 04/23/18 20:00 04/24/18 00:00 Temperature 98.8 F 99.1 F 98.2 F Pulse Rate 72 91 H 70 Respiratory Rate 18 18 18 Blood Pressure 144/84 H 147/77 H 133/63 Pulse Oximetry 97 97 68 L 04/24/18 02:03 04/24/18 03:52 04/24/18 04:00 Temperature 98.7 F Pulse Rate 68 Respiratory Rate 18 18 Blood Pressure 141/83 H Pulse Oximetry 98 04/24/18 08:00 04/24/18 12:00 Temperature 99.0 F 98.2 F Pulse Rate 68 76 Respiratory Rate 18 18 Blood Pressure 150/76 H 134/73 Pulse Oximetry 96 96 Intake & Output 04/23/18 04/24/18 04/24/18 18:59 06:59 18:59 Intake Total 1999 1100 / 1100 1999 Balance 1999 / 1099 Weight 64 kg Intake: IV 1999 / 1100 1999 NS Inj 1,000 ML @ 75 mls/hr IV. 1999 / 999 CONT .[id number] DAE Rx#:[id number] Rocephin Inj 1,000 MG In NS Inj 100 / 100 100 ML @ 200 mls/hr IV.SIG Q24H DAE Rx#:[id number] Other: # Voids 2 Date of Last Bowel Movement 04/18/18 Results Procedures completed during hospitalization: None Labs on day of discharge: Labs from last 24 hours 04/23/18 16:46 Urine Color Bridegt Urine Clarity Hazy H Urine pH 5.0 Ur Specific [place] 1.029 Urine Protein 30 H Urine Glucose (UA) Negative Urine Ketones Trace Urine Occult Blood Negative Urine Nitrate Negative Urine Bilirubin Negative Urine Urobilinogen 4 or greater Ur Leukocyte Esterase Negative Urine RBC 3 Urine WBC 4 Ur Squamous Epith Cells 1 Ur Transition Epith Cell <1 Urine Mucus Few H Micro UA Comment Culture not ind Urine Culture Comments Culture not ind Discharge Plan - Discharge Disposition Patient Disposition: 01 Discharge Home - Discharge Condition Condition: Stable - Discharge Order Discharge Orders: Discharge Order (Routine); Ordered 04/24/18 Ordered By: Regulo Shine - Discharge Details Anticipated Discharge Date: 04/24/18 - Physicians Team Primary Care Provider: UNKNOWN, Attending Provider: Regulo Shine Other Providers: Constantino Pardo DO - Rxs /Orders / Referrals /Forms Prescriptions: New Lactobacillus acidophilus Capsule 500 mmu cells PO TID Qty: 30 RF: 0 levofloxacin [Levaquin] 500 mg Tablet 500 mg PO DAILY Qty: 10 RF: 0 tramadol 50 mg Tablet 50 mg PO Q6H Qty: 20 RF: 0 Referrals: UNKNOWN, [Primary Care Provider] - See Instructions
[2018-04-24 17:11] VITALS: BP 136/77; PULSE 75; TEMP 98.9; O2SAT 97
== END 2018-04-24 19:21 | disposition home or self-care (01) ==
LOC: N05 20:40
PROVIDERS: ADMIT Hospitalist; ATTEND Hospitalist
DX: N50.9 Disorder of male genital organs, unspecified; N45.3 Epididymo-orchitis; K74.60 Unspecified cirrhosis of liver; G40.909 Epilepsy, unspecified, not intractable, without status epilepticus
CPT/HCPCS: 80053; 81001; 85025; J0696; J7030